=== PATIENT | female | born 1940 | race Caucasian/White ===

== ENCOUNTER 2016-11-09 07:17 | Inpatient (IN) ==
--- NOTE | 2016-11-09 07:56 | EKG Report ---
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
[2016-11-09] MEDS ORDERED: ASPIRIN 325 MG TABLET PO STA (08:06)
[2016-11-09] MEDS ORDERED: HYDROmorphone 2 MG/1 ML VIAL IV STA (08:06)
[2016-11-09] MEDS ORDERED: ONDANSETRON 4 MG/2 ML VIAL IV STA (08:06)
--- NOTE | 2016-11-09 08:12 | Emergency Department Note ---
Arrival - Arrival Chief Complaint: Chest Pain Stated Complaint: cp ED Nursing Triage Note: Pt c/o Chest pain with SOB and nausea x 2 days. Mode of Arrival: Stretcher Limitations: No Limitations Source: Patient Time Seen by Provider: 11/09/16 07:56 - History of Present Illness HPI Narrative: The patient complaints of substernal and left parasternal chest pain off and on since "a few nights ago." It became worse last night. She has also had some pain in the left upper arm. She is unable to characterize either of these. She denies any nausea, vomiting or diaphoresis. She has had some shortness of breath. 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 Apparently a neighbor became concerned and called an ambulance for her. She does have a history of KS in the past but states that her current symptoms do not feel the same. She had a stent approximately 10 years ago. Allergies/Adverse Reactions: Allergies Allergy/AdvReac Type Severity Reaction Status Date / Time morphine AdvReac SHORTNESS Verified 07/23/16 15:54 OF BREATH Home Medications: Home Medications Medication Instructions Recorded Confirmed Type Amlodipine Besylate [Amlodipine 2.5 mg PO DAILY 05/30/15 05/30/15 History Besylate] Atorvastatin [Lipitor] 10 mg PO BEDTIME 05/30/15 05/30/15 History Bumetanide Tab [Bumex Tab] 1 mg PO DAILY 05/30/15 05/30/15 History Carbidopa/Levodopa 25-100 [Sinemet 1 tablet PO TID 05/30/15 05/30/15 History 25-100] Clopidogrel Bisulfate [Clopidogrel] 75 mg PO DAILY 05/30/15 05/30/15 History Estrogens(Conj) Tab [Premarin Tab] 0.45 mg PO DAILY 05/30/15 05/30/15 History Losartan Potassium [Losartan 100 mg PO DAILY 05/30/15 05/30/15 History Potassium] Magnesium Oxide [Magnesium Oxide] 400 mg PO BID 05/30/15 05/30/15 History Meclizine [Antivert] 25 mg PO TID 05/30/15 05/30/15 History Memantine [Namenda] 10 mg PO BID 05/30/15 05/30/15 History Omeprazole [Prilosec] 20 mg PO DAILY 05/30/15 05/30/15 History Potassium Chloride Packet 20 meq PO DAILY 05/30/15 05/30/15 History Solifenacin [Vesicare] 5 mg PO DAILY 05/30/15 05/30/15 History Thioridazine [Mellaril] 25 mg PO DAILY 05/30/15 05/30/15 History Tizanidine HCl [Zanaflex] 2 mg PO Q6H #40 capsule 05/30/15 Rx predniSONE TAB [PredniSONE] 20 mg PO DAILY #15 tablet 05/30/15 Rx Review of System - Review of System 12 point system: reviewed and no additional remarkable complaints except as stated - Review of System Constitutional: Absent: diaphoresis, fever, weakness Head/Ears/Nose/Throat: Absent: nasal drainage, sore throat Respiratory: Present: other (Dyspnea). Absent: cough, respiratory distress, wheezing Cardiovascular: Present: chest pain. Absent: palpitations, dyspnea on exertion , orthopnea, edema, syncope Gastrointestinal: Absent: abdominal pain, nausea, vomiting Musculoskeletal: Present: arm pain. Absent: back pain, neck pain Neurological: Absent: headache Medical,Surgical,& Family Hx - Medical History Cardio: History of: Hypertension, [place] Neurology: History of: Dementia Endocrine: History of: Dyslipidemia - Surgical History Cardiac Surgeries: Sugical HX of: Cardiac Catheterization (STENTS X 2) - Family History Family History: noncontributory - Social History Smoking Status: Never smoker Exam Physical Examination: GENERAL: Alert. No acute distress. HEENT: Normocephalic and atraumatic. There is no nasal drainage. No pharyngeal erythema or exudate. NECK: Normal inspection. Supple. No lymphadenopathy or meningismus. LUNGS: No respiratory distress. Clear to auscultation bilaterally, no wheezes, rales or rhonchi. HEART: Regular rate and rhythm. ABDOMEN: Soft, nontender and nondistended with normoactive bowel sounds. BACK: Normal inspection. SKIN: Color normal. Warm and dry. EXTREMITIES: Nontender. Normal range of motion. No pedal edema. NEUROLOGICAL/PSYCHIATRIC: Alert and oriented -3 with normal mood and affect. Cranial nerves normal. No motor or sensory deficit. Vital Signs: Vital Signs Temperature 98.1 F 06/30/17 07:39 Pulse Rate 92 H 11/09/16 07:39 Respiratory Rate 16 11/09/16 07:55 Blood Pressure 162/93 11/09/16 07:39 O2 Sat by Pulse Oximetry 98 11/09/16 07:25 Course - Reevaluation(s) Reevaluation #1: The patient is now pain-free and sleeping comfortably in the ER. Vitals remained stable. Her troponin was 1.8. I have discussed patient with Dr. mckay and will admit to telemetry. He will see the patient as soon as she arrives on the floor. Time: 09:46 Results - Labs CBC & BMP: 11/09/16 08:30 11/09/16 08:30 Lab Results: I have reviewed the patients labs Labs: Laboratory Tests 11/09/16 11/09/16 11/09/16 08:30 08:30 08:30 INR 1.0 Total Bilirubin < 0.39 AST 20 ALT 13 Alkaline Phosphatase 47 CK-MB (CK-2) 11.9 H CK and CKMB Interp 8.8 Troponin I 1.800 H B-Natriuretic Peptide 235 H - Impressions EKG shows a normal sinus rhythm at 78 with inferior Q waves. This is unchanged from previous. Chest x-ray shows no acute cardiopulmonary abnormality. Disposition Clinical Impression: Chest pain, Myocardial infarction, Chronic renal insufficiency, Leukocytosis Case discussed with: patient, patient's family Disposition: Still a Patient Condition: Stable Time of Disposition: 09:48
[2016-11-09] MEDS ORDERED: HYDROmorphone 2 MG/1 ML VIAL ONE ×2 (08:18→13:20)
[2016-11-09] MEDS ORDERED: ONDANSETRON 4 MG/2 ML VIAL ONE (08:18)
[2016-11-09] MEDS ORDERED: ASPIRIN 325 MG TABLET ONE (08:18)
--- NOTE | 2016-11-09 08:20 | XRay Report ---
Portable chest Date: 11/09/2016 Clinical history: Chest pain, dyspnea Comparison: 05/30/2015 Technique: Portable AP sitting chest Findings: The heart is normal in size with uncoiling of the aorta and cardiac fat pads. Calcification in the aortic knob. Minimal chronic scarring in the lungs with stable mediastinum and osseous structures. Impression: No acute cardiopulmonary pathology identified. PROCEDURE INTERPRETED AT [facility] DEPARTMENT OF RADIOLOGY Final Report Signed by: Dr. Yoli Burch
[2016-11-09 08:41] LABS: Basophils # 0.1 10*3/uL (0.0-0.2); Basophils % 0.3 % (0.0-0.8); Eosinophils # 0.1 10*3/uL (0.0-0.87); Eosinophils % 0.5 % (0.00-10.9); Hematocrit 34.1 VOL% (35.7-47.0); Immature Granulocytes % 0.3 %; Immature Granulocytes Absolute 0.05 #; Lymphocytes # 1.3 10*3/uL (1.4-4.0); Lymphocytes % 7.4 % (21.3-54.2); Mean Corpuscular HGB Conc 35.2 GM/DL (32-36); Mean Corpuscular Hemoglobin 34 PG (27-34); Mean Corpuscular Volume 95.8 FL (87-102); Mean Platelet Volume 10.1 FL (9.6-12.0); Monocytes % 5.6 % (1.7-12.7); Neutrophils # 14.5 10*3/uL (1.4-7.4); Neutrophils % 85.9 % (38.7-73.9); Platelet Count 160 T/CUMM (130-400); Red Blood Count 3.56 MC/CUMM (3.8-5.5); White Blood Count 16.8 T/CUMM (4-12)
[2016-11-09 08:52] LABS: PT Patient Result 10.2 SECS; Partial Thromboplastin Time 25.2 SECS (0-40)
[2016-11-09 09:20] LABS: Alanine Aminotransferase 13 U/L (13-56); Albumin 3.2 G/DL (3.4-5.0); Alkaline Phosphatase 47 U/L (45-117); Aspartate Amino Transferase 20 U/L (0-37); Bilirubin,Total < 0.39 MG/DL (0.2-1.0); Blood Urea Nitrogen 28 MG/DL (7-18); CKMB % 8.8 %; Glucose 91 MG/DL (74-106); Magnesium 1.9 MG/DL (1.8-2.4); Potassium 4.1 MMOL/L (3.5-5.1); Sodium 136 MMOL/L (136-145); Total Protein 6.8 G/DL (6.4-8.3)
[2016-11-09] MEDS ORDERED: MAGNESIUM SULF RIDER 2 GM in PREMIX 1 EACH IV PRN (10:48)
[2016-11-09] MEDS ORDERED: MAGNESIUM SULF RIDER 4 GM in PREMIX 1 EACH IV PRN (10:48)
[2016-11-09] MEDS ORDERED: diphenhydrAMINE CAP 25 MG CAPSULE PO ONE (12:04)
[2016-11-09] MEDS ORDERED: DIAZEPAM 5 MG TABLET PO ONE (12:07)
--- NOTE | 2016-11-09 12:12 | Cardiology History & Physical ---
<Urmila Edwards - Last Filed: 11/09/16 11:48> Assessment and Plan - Time spent with patient Time spent with patient: Greater than 30 minutes (1) Chest pain Status: Acute Assessment and plan: SEE PLAN OF CARE LISTED BELOW. Current Visit: Yes (2) Chronic renal insufficiency Status: Chronic Assessment and plan: SEE PLAN OF CARE LISTED BELOW. Current Visit: Yes (3) Hypertension Status: Chronic Assessment and plan: SEE PLAN OF CARE LISTED BELOW. Current Visit: Yes (4) Dyslipidemia Status: Chronic Assessment and plan: SEE PLAN OF CARE LISTED BELOW. Current Visit: Yes (5) GERD (gastroesophageal reflux disease) Status: Chronic Assessment and plan: SEE PLAN OF CARE LISTED BELOW. Current Visit: Yes (6) Coronary artery disease Status: Chronic Assessment and plan: SEE PLAN OF CARE LISTED BELOW. Current Visit: Yes (7) History of NC (myocardial infarction) Status: Chronic Assessment and plan: SEE PLAN OF CARE LISTED BELOW. Current Visit: Yes History of Present Illness Chief complaint: Chest pain History of present illness: Respiratory Therapist: Dr. Wilcox PCP: Dr. Yann Groves Ms. Howell is a 76 year old female with known history of coronary artery disease, routinely followed by Dr. Wilcox. Patient has cardiac risk factors significant for hypertension, hyperlipidemia, known history of coronary artery disease and sedentary lifestyle. Patient is a lifetime non-smoker. Patient has a past medical history of GERD, aortic sclerosis, chronic anxiety, hard of hearing and history of breast cancer (now in remission). Patient is status post inferior myocardial infarction with stent placement to proximal RCA October. Her most recent heart catheterization was performed July 2007. At that time her RCA stent was widely patent. LAD was mildly stenosed at 40%. She had a cardiac stress test December 2011 which was normal. She was last seen in the cardiology clinic May 2016. Patient presented to [facility] with complaints of chest pain that began "a couple of nights ago." Patient is unable to characterize her pain. It is located midsternally as well as to her left chest and radiates from her left arm. This is been coming and going for the last couple of days. She has noticed that it is sometimes worse during sleeping hours. However, she also reports that it is worsened with exertion. Associated with shortness of breath. She denies diaphoresis, nausea and heart racing/palpitations. She has not tried taking nitroglycerin at home. Her chest pain continued to progress and she felt that she needed to be further evaluated in the emergency department. Her neighbor then called EMS. Upon arrival to the emergency department, she was given nitroglycerin. She reports that this did make her chest pain better. Patient has since been admitted under cardiology's service and housed the telemetry unit. Of note, patient's granddaughter is at bedside and she reports that patient has a long-standing history of atypical type chest pain as she has arthritis in her chest. She frequently has "chest pain with rain." Earlier this week, she reported having chest pain that was relieved with heating pad and Tylenol. Patient reports that she did not try taking Tylenol this morning. Patient was seen and examined on the telemetry unit with Dr. mckay. Patient continues to complain of moderate chest discomfort. Troponin is noted to be 1.8. EKG does not reveal any diagnostic changes. BNP only mildly elevated at 235. Creatinine 1.7. Patient has a known history of coronary artery disease with stent placement to proximal RCA October 15, 2006. Patient's last heart catheterization was July 2007. Because of this, patient will need to undergo cardiac stress testing in order to definitively rule out worsening of underlying coronary artery disease. Risk and benefits of procedure has been reviewed with patient and family. They are all agreeable to proceed later today. Patient will be kept n.p.o. and will plan for heart catheterization today per Dr. Wilcox. ASSESSMENT/PLAN: 1. CHEST PAIN - Troponin is noted to be 1.8. Patient also has a known history of coronary artery disease with stent placement to proximal RCA October 15, 2006. Patient's last heart catheterization was July 2007. Because of this, patient will need to undergo cardiac stress testing in order to definitively rule out worsening of underlying coronary artery disease. Risk and benefits of procedure has been reviewed with patient and family. They are all agreeable to proceed later today. Patient will be kept n.p.o. and will plan for heart catheterization today per Dr. Wilcox. 2. CORONARY ARTERY DISEASE - Patient has known coronary artery disease with history of inferior myocardial infarction with stent to proximal RCA. 3. DYSLIPIDEMIA - Lipid lowering agent will be continued. Will order lipid panel. 4. HYPERTENSION - Under well control. Continue current plan of care. 5. GERD - I will assure patient has PPI on board. 6. RENAL INSUFFICIENCY - We will monitor BMP daily. Creatinine today 1.7. Fluids have been initiated. Home Medications Medication Instructions Recorded Confirmed Type Amlodipine Besylate [Amlodipine 2.5 mg PO QAM 05/30/15 11/09/16 History Besylate] Atorvastatin [Lipitor] 10 mg PO BEDTIME 05/30/15 11/09/16 History Carbidopa/Levodopa 25-100 [Sinemet 1 tablet PO TID 05/30/15 11/09/16 History 25-100] Clopidogrel Bisulfate [Clopidogrel] 75 mg PO QAM 05/30/15 11/09/16 History Estrogens(Conj) Tab [Premarin Tab] 0.45 mg PO QAM 05/30/15 11/09/16 History Losartan Potassium [Losartan 100 mg PO QAM 05/30/15 11/09/16 History Potassium] Magnesium Oxide [Magnesium Oxide] 400 mg PO BEDTIME 05/30/15 11/09/16 History Meclizine [Antivert] 25 mg PO TID PRN 05/30/15 11/09/16 History Memantine [Namenda] 10 mg PO BID 05/30/15 11/09/16 History Omeprazole [Prilosec] 20 mg PO QAM 05/30/15 11/09/16 History Potassium Chloride Packet 20 meq PO DAILY 05/30/15 11/09/16 History Solifenacin [Vesicare] 5 mg PO QAM 05/30/15 11/09/16 History Thioridazine [Mellaril] 25 mg PO QAM 05/30/15 11/09/16 History Aspirin EC Tab 81 mg PO QAM 11/09/16 11/09/16 History Furosemide [Furosemide] 40 mg PO QAM 11/09/16 11/09/16 History Isosorbide Mononitrate [Isosorbide 15 mg PO QAM 11/09/16 11/09/16 History Mononitrate ER] Allergies Allergy/AdvReac Type Severity Reaction Status Date / Time morphine AdvReac SHORTNESS Verified 07/23/16 15:54 OF BREATH - Constitutional Constitutional: Absent: chills, fatigue, fever(s), frequent falls, malaise, weakness, weight gain, weight loss - Cardiovascular Cardiovascular: Present: chest pain at rest, chest pain with activity, dyspnea, dyspnea on exertion, radiating jaw, neck or arm pain. Absent: claudication, diaphoresis, edema, lightheadedness, orthopnea, palpitations, PND - Respiratory Respiratory: Present: dyspnea, dyspnea on exertion. Absent: cough, hemoptysis, wheezing, snoring, pain on inspiration, change in phlegm color - Gastrointestinal Gastrointestinal: Present: heartburn. Absent: abdominal pain, change in bowel habits, coffee ground emesis, diarrhea, hematemesis, hematochezia, loose stools , melena, nausea, vomiting - Neurological Neurological: Absent: abnormal gait, abnormal speech, behavioral changes, dizziness, frequent falls, syncope Medical,Surgical,& Family Hx - Medical History Cardio: History of: CAD, Hypertension, [place] Neurology: History of: Dementia Endocrine: History of: Dyslipidemia Genitourinary: History of: Bladder Problem (leaky bladder) Musculoskeletal: History of: Back/Neck Problems (back pain) Reproductive: History of: Breast Cancer (double mastectomy) - Surgical History Cardiac Surgeries: Sugical HX of: Cardiac Catheterization (STENTS X 2) Reproductive Surgeries: Surgical HX of;: Breast Surgery - Family History Family History: Reports;: Family Cancer (sister), Family Hypertension (mother father), Family Stroke (father) - Social History Smoking Status: Never smoker Frequency of Alcohol Use: None Type of Drug Use: None Marital Status: Single Lives With:: Alone Functional capacity: independent ambulation Cardiology Physical Exam - Constitutional Vitals: Vital Signs Temp Pulse Resp BP Pulse Ox 97.9 F 99 H 18 125/75 100 11/09/16 10:49 11/09/16 10:49 11/09/16 10:49 11/09/16 10:49 11/09/16 10:49 Intake and Output 11/08/16 11/09/16 11/09/16 22:59 06:59 14:59 Other: Weight 130 lb Patient Weight 11/10/16 06:59 Weight 130 lb Exam: General: Appears well with no apparent distress. Pleasant and cooperative. Appears comfortable. HEENT: PERRL, normocephalic, atraumatic. Mucous membranes moist. No jaundice noted. Conjunctiva moist and clear, sclerae anicteric Neck: No JVD/HJR, no thyromegaly or lymphadenopathy noted. Cardiac: Regular rate and rhythm. Lungs: Clear to auscultation without accessory muscle use to assist the respiratory pattern. Abdomen: Soft, bowel sounds normoactive. Nontender and nondistended. No abdominal bruit or thrill noted. No masses noted. Extremities: No clubbing, cyanosis noted. No edema noted. Upper extremity pulses 2+. Lower extremity pulses 2+. Capillary refill less than 3 seconds. Skin: No unusual lesions or rashes. No skin breakdown appreciated. Neuro: Awake, alert and oriented 3. Moves all extremities well without hemiparesis or paralysis. No essential tremor is appreciated. Result/EKG - Labs CBC & BMP: 11/09/16 08:30 11/09/16 08:30 Lab Results: I have reviewed the past 24 hour labs Labs: Laboratory Results - last 24 hr 11/09/16 11/09/16 11/09/16 08:30 08:30 08:30 WBC RBC Hgb Hct MCV MCH MCHC RDW Plt Count MPV Neut % (Auto) Lymph % (Auto) Osborne % (Auto) Eos % (Auto) Baso % (Auto) Neut # (Auto) Lymph # (Auto) Osborne # (Auto) Eos # (Auto) Baso # (Auto) Immature Gran % Nucleated RBC % Immature Gran # Nucleated RBCs # INR 1.0 PT Patient/Control Mix 10.2 Circ Anticoag PTT 25.2 Sodium 136 Potassium 4.1 Chloride 102 Carbon Dioxide 24 Anion Gap 14.1 BUN 28 H Creatinine 1.70 H GFR Calculation 25 BUN/Creatinine Ratio 16.00 Glucose 91 Calculated Osmolality 277.0 Calcium 9.0 Magnesium 1.9 Total Bilirubin < 0.39 AST 20 ALT 13 Alkaline Phosphatase 47 Total Creatine Kinase 135 CK-MB (CK-2) 11.9 H CK and CKMB Interp 8.8 Troponin I 1.800 H B-Natriuretic Peptide 235 H Total Protein 6.8 Albumin 3.2 L Globulin 3.6 H Albumin/Globulin Ratio 0.8 L 11/09/16 08:30 WBC 16.8 H RBC 3.56 L Hgb 12.0 Hct 34.1 L MCV 95.8 MCH 34 MCHC 35.2 RDW 13.0 Plt Count 160 MPV 10.1 Neut % (Auto) 85.9 H Lymph % (Auto) 7.4 L Osborne % (Auto) 5.6 Eos % (Auto) 0.5 Baso % (Auto) 0.3 Neut # (Auto) 14.5 H Lymph # (Auto) 1.3 L Osborne # (Auto) 1.0 H Eos # (Auto) 0.1 Baso # (Auto) 0.1 Immature Gran % 0.3 Nucleated RBC % 0.0 Immature Gran # 0.05 Nucleated RBCs # 0.00 INR PT Patient/Control Mix Circ Anticoag PTT Sodium Potassium Chloride Carbon Dioxide Anion Gap BUN Creatinine GFR Calculation BUN/Creatinine Ratio Glucose Calculated Osmolality Calcium Magnesium Total Bilirubin AST ALT Alkaline Phosphatase Total Creatine Kinase CK-MB (CK-2) CK and CKMB Interp Troponin I B-Natriuretic Peptide Total Protein Albumin Globulin Albumin/Globulin Ratio - EKG EKG results: interpreted by me, sinus rhythm <Wilton Wilcox - Last Filed: 11/09/16 12:37> History of Present Illness History of present illness: Cardiology addendum Status post RCA stent in 2004 with inferior infarction. Recurrent chest pain. Troponin level is 1.80 EKG shows inferior T-wave changes. Suspect disease progression. Plan Begin normal saline hydration Cardiac cath possible stent Discussed with daughter Betsey and granddaughter Sydney. All in agreement to proceed as outlined. Cardiology Physical Exam - Constitutional Vitals: Vital Signs Temp Pulse Resp BP Pulse Ox 97.9 F 99 H 18 125/75 100 11/09/16 10:49 11/09/16 10:49 11/09/16 10:49 11/09/16 10:49 11/09/16 10:49 Intake and Output 11/08/16 11/09/16 11/09/16 23:59 07:59 15:59 Other: Weight 58.967 kg Patient Weight 11/09/16 23:59 Weight 58.967 kg Result/EKG - Labs CBC & BMP: 11/09/16 08:30 11/09/16 08:30 Labs: Laboratory Results - last 24 hr 11/09/16 11/09/16 11/09/16 08:30 08:30 08:30 WBC RBC Hgb Hct MCV MCH MCHC RDW Plt Count MPV Neut % (Auto) Lymph % (Auto) Osborne % (Auto) Eos % (Auto) Baso % (Auto) Neut # (Auto) Lymph # (Auto) Osborne # (Auto) Eos # (Auto) Baso # (Auto) Immature Gran % Nucleated RBC % Immature Gran # Nucleated RBCs # INR 1.0 PT Patient/Control Mix 10.2 Circ Anticoag PTT 25.2 Sodium 136 Potassium 4.1 Chloride 102 Carbon Dioxide 24 Anion Gap 14.1 BUN 28 H Creatinine 1.70 H GFR Calculation 25 BUN/Creatinine Ratio 16.00 Glucose 91 Calculated Osmolality 277.0 Calcium 9.0 Magnesium 1.9 Total Bilirubin < 0.39 AST 20 ALT 13 Alkaline Phosphatase 47 Total Creatine Kinase 135 CK-MB (CK-2) 11.9 H CK and CKMB Interp 8.8 Troponin I 1.800 H B-Natriuretic Peptide 235 H Total Protein 6.8 Albumin 3.2 L Globulin 3.6 H Albumin/Globulin Ratio 0.8 L 11/09/ 08:30 WBC 16.8 H RBC 3.56 L Hgb 12.0 Hct 34.1 L MCV 95.8 MCH 34 MCHC 35.2 RDW 13.0 Plt Count 160 MPV 10.1 Neut % (Auto) 85.9 H Lymph % (Auto) 7.4 L Osborne % (Auto) 5.6 Eos % (Auto) 0.5 Baso % (Auto) 0.3 Neut # (Auto) 14.5 H Lymph # (Auto) 1.3 L Osborne # (Auto) 1.0 H Eos # (Auto) 0.1 Baso # (Auto) 0.1 Immature Gran % 0.3 Nucleated RBC % 0.0 Immature Gran # 0.05 Nucleated RBCs # 0.00 INR PT Patient/Control Mix Circ Anticoag PTT Sodium Potassium Chloride Carbon Dioxide Anion Gap BUN Creatinine GFR Calculation BUN/Creatinine Ratio Glucose Calculated Osmolality Calcium Magnesium Total Bilirubin AST ALT Alkaline Phosphatase Total Creatine Kinase CK-MB (CK-2) CK and CKMB Interp Troponin I B-Natriuretic Peptide Total Protein Albumin Globulin Albumin/Globulin Ratio
[2016-11-09] MEDS ORDERED: SODIUM CHLORIDE 0.9% 1,000 ML IV SCH (12:30)
[2016-11-09] MEDS ORDERED: HEPARIN/NACL 0.9% 2 UNITS/ML 1,000 ML IV ONE (13:01)
[2016-11-09] MEDS ORDERED: LIDOCAINE 1% 20 ML VIAL ONE (13:01)
[2016-11-09 13:06] LABS: CKMB % 6.5 %
[2016-11-09 13:07] LABS: Troponin I Only 1.21 NG/ML (0.00-0.045)
[2016-11-09] MEDS ORDERED: MIDAZOLAM 2 MG/2 ML VIAL ONE (13:20)
--- NOTE | 2016-11-09 13:37 | History and Physical Update ---
Sedation H&P Update - History and Physical H&P was reviewed, the patient examined and there: are no changes in the patients condition since last H&P was completed. - Dictation Physical: refer to scanned H&P, refer to H&P completed by admitting physician - Physical Exam Mental Status: alert and oriented Heart: regular rate and rhythm Lung: clear to auscultation Abdomen: within normal limits Vitals: within normal limits - Sedation Patient Consent: Procedure disscussed with patient and patinet has consented., Risks and benefits were discussed with patient,including infection,, bleeding, injury to surrounding structures, seizure, temporary nerve, Patient understands and accepts potential risks/benefits and agrees to, proceed. ASA Class: II Airway Assessment: Class II: Soft palate, uvula, fauces visible
[2016-11-09] MEDS ORDERED: BIVALIRUDIN 250 MG VIAL IV ONE (13:55)
[2016-11-09] MEDS ORDERED: BIVALIRUDIN 250 MG in SODIUM CHLORIDE 0.9% 50 ML IV SCH (13:58)
[2016-11-09] MEDS ORDERED: CLOPIDOGREL 300 MG TABLET ONE ×2 (14:13→14:44)
--- NOTE | 2016-11-09 14:38 | Cardiac Catheterization ---
Date of Procedure:: 11/09/16 Pre-op Diagnosis: Non-Q-wave NC chest pain Post-op diagnosis: same Procedure: Cardiac catheterization procedure note #1 left heart catheterization #2 selective coronary angiography #3 left ventriculography #4 successful proximal RCA stent Jeni was used for the procedure Description of procedure The patient had a non-Q-wave NC with chest pain and elevated troponin I 0.8 was brought to the [facility]. Following sterile preparation draping of the right groin local anesthesia was achieved by infiltration with 1% Xylocaine. Using a Cook needle the right femoral artery was cannulated and a #6 sheath was inserted. A 6 Libyan pigtail catheter was introduced and advanced retrograde across the aortic valve into the left ventricle and the end-diastolic pressure was recorded. Left ventricular cavity was performed the CLARKE projection using 20 cc of contrast. A pullback recordings made across phytic valve. The catheter was changed for a 6 Libyan left Amplatz catheter and left coronary angiography was performed in several CLARKE and NICARAGUAN projections. The catheter was exchanged for a 6 [place]yan right Amplatz catheter and right coronary angiography was performed in the NICARAGUAN projection only. The catheter change for a 6 Libyan right Amador guiding catheter and the right coronary was recannulated. A cnmt film was obtained. The patient was both Angiomax and placed on infusion per protocol. A pro-water flex wire was used and advanced to the distal right coronary. Direct stenting was performed using a 3.0 x 18 mm Alpine Zions drug-eluting stent. Several flush injections confirmed good positioning of the stent. The maximum patient pressure was 16 sendy for 30 seconds, creating a 3.24 mm lumen. The balloon was brought back to the guiding catheter going to guidewire across the lesion repeat angiography widely patent vessel with mild residual narrowing, no dissection and brisk runoff. The guidewire was removed. Repeat angiography and confirmed a widely patent vessel with mild residual narrowing, no dissection and brisk runoff. The guiding catheter and sheath were removed and the femoral arch Warren site was sealed percutaneously minx closure device with prompt cessation of bleeding and prompt return of normal for pulses. No comp occasions ensued. The patient was transported back to telemetry in stable condition. Hemodynamic data Left ventricle 163/10 Aortic pressure 163/78 mean 114 Selective coronary angiography The left main trunk is widely patent bifurcates. The LAD is a moderate-sized vessel with just reaches the apex. There is a 40% stenosis after the first septal diagonal branch. Diagonal branch is small and has mild disease only. Circumflex system is small and has mild disease only. The dominant coronary artery has a 95% in-stent restenosis in the proximal segment of the vessel. No left right collaterals. Left ventriculography Localized inferobasal hypokinesis. Ejection fraction 60%. No evidence for mitral regurgitation. Conclusions #1 LVEDP 10 #2 ejection fraction 60% with inferobasal hypokinesis #3 no mitral regurgitation #4 no aortic valve gradient #5 left main trunk-patent #6 LAD-40% proximal after first septal and diagonal #7 diagonal-small, mild disease #8 circumflex system-small, mild irregularities only #9 dominant right coronary-95% in-stent restenosis in the proximal vessel. #10 successful proximal RCA stent 3.0 by 18 mm Alpine Zions drug-coated stent, postdilated 16 sendy for 30 seconds, creating a 3.24 mm lumen. Excellent angiographic result obtained. Disposition The patient status post proximal RCA stent October 2006. She presents with a non-Q -wave NC and had a 95% in-stent restenosis. The vessel was restented with a 3.0 x 18 mm Alpine drug-coated stent, postdilated to 16 sendy, creating a 3.24 mm lumen. Excellent angiographic result obtained. She will remain on normal saline hydration and continue aspirin Plavix and statin therapy. A CPK troponin and BNP were checked in the morning. Cine pictures reviewed with the patient's daughter Betsey and granddaughter Sydney. Implants: Successful proximal RCA stent 3.0 x 18 mm Alpine Zions drug-eluting stent. Maximum patient pressure 16 sendy 30 seconds, creating a 3.04 mm lumen. Good result obtained. Anesthesia: moderate conscious sedation Surgeon / Physician: Wilton Wilcox Estimated blood loss: minimal Specimens: none sent Condition: stable Disposition: floor - Medications / Follow-up
[2016-11-09] MEDS ORDERED: NITROGLYCERIN SL 0.4 MG TABLET SL PRN (14:39)
[2016-11-09] MEDS ORDERED: ONDANSETRON 4 MG/2 ML VIAL IV PRN (14:39)
[2016-11-09] MEDS ORDERED: ZALEPLON 5 MG CAPSULE PO PRN (14:39)
[2016-11-09] MEDS ORDERED: ACETAMINOPHEN 325 MG TABLET PO PRN (14:39)
[2016-11-09] MEDS ORDERED: MECLIZINE 25 MG TABLET PO PRN (14:42)
--- NOTE | 2016-11-09 15:05 | EKG Report ---
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
[2016-11-09] MEDS: CARBIDOPA/LEVODOPA 25-100 MG TABLET PO SCH ×2 (17:43→22:48)
[2016-11-09] MEDS ORDERED: amLODIPine 2.5 MG TABLET PO ONE (17:46)
[2016-11-09] MEDS ORDERED: CLOPIDOGREL 75 MG TABLET PO ONE (17:46)
[2016-11-09 19:21] LABS: CKMB % 6.7 %
[2016-11-09 19:26] LABS: Troponin I Only 1.61 NG/ML (0.00-0.045)
[2016-11-09] MEDS ORDERED: CLOPIDOGREL 300 MG TABLET PO ONE (19:39)
[2016-11-09] MEDS ORDERED: ISOSORBIDE MONONITRATE 30 MG TABLET PO ONE (19:40)
[2016-11-09] MEDS ORDERED: LOSARTAN 50 MG TABLET PO ONE (20:10)
[2016-11-09] MEDS: ATORVASTATIN 10 MG TABLET PO SCH (22:48)
[2016-11-09] MEDS: MAGNESIUM OXIDE 400 MG TABLET PO SCH (22:48)
[2016-11-09] MEDS: MEMANTINE 10 MG TABLET PO SCH (22:48)
[2016-11-10 01:50] LABS: Basophils % 0.3 % (0.0-0.8); Eosinophils # 0.1 10*3/uL (0.0-0.87); Eosinophils % 0.3 % (0.00-10.9); Hematocrit 30.8 VOL% (35.7-47.0); Hemoglobin 10.6 GM/DL (12.0-16.0); Immature Granulocytes % 0.6 %; Lymphocytes # 1.7 10*3/uL (1.4-4.0); Lymphocytes % 10.7 % (21.3-54.2); Mean Corpuscular HGB Conc 34.4 GM/DL (32-36); Mean Corpuscular Hemoglobin 34 PG (27-34); Mean Corpuscular Volume 97.8 FL (87-102); Mean Platelet Volume 10.3 FL (9.6-12.0); Monocytes # 0.9 10*3/uL (0.11-0.8); Monocytes % 5.8 % (1.7-12.7); Neutrophils # 13.1 10*3/uL (1.4-7.4); Neutrophils % 82.3 % (38.7-73.9); Platelet Count 139 T/CUMM (130-400); Red Blood Count 3.15 MC/CUMM (3.8-5.5); Red Cell Distribution Width 13.7 % (9.3-17.3); White Blood Count 15.9 T/CUMM (4-12)
[2016-11-10 02:05] LABS: Calcium 7.9 MG/DL (8.5-10.1); Magnesium 1.7 MG/DL (1.8-2.4); Osmolality,Calculated 276.7 MOS/KG (273-304); Potassium 4.1 MMOL/L (3.5-5.1)
[2016-11-10 02:11] LABS: CKMB % 3.8 %
[2016-11-10 02:32] LABS: Troponin I Only 1.92 NG/ML (0.00-0.045)
--- NOTE | 2016-11-10 08:31 | Cardiology Progress Note ---
Cardiology - PN: Subj Interval history: Cardiology note Status post inferior [place] with proximal RCA stent. EF 60% with inferobasal hypokinesis. Temperature spike to 101.2 last night 2 blood cultures and UA have been sent. Alert and comfortable today. Regular rhythm with soft systolic murmur. Decreased breath sounds but clear. Abdomen soft. Right groin looks good. No bruit or hematoma. Lab data today White count 15.9 hemoglobin 10.6 hematocrit 30.8 Sodium 138 potassium 4.1 chloride 107 CO2 22 BUN 17 creatinine down to 1.30 CPK peaked to 45 troponin I 0.92 Impression Status post small inferior TX with proximal RCA stent Hypertension Depression Temperature 101.2 Status post proximal RCA stent October 2006 Plan Routine groin precautions discussed 2 blood cultures and UA pending Follow CPK flux Discussed with daughter Betsey Exam (Progress Note) - Constitutional Vitals: Period Temp Pulse Resp BP Sys/Marie Pulse Ox Last 24 Hr 97.9 F-101.2 F 87-115 16-18 98-160/58-76 92-100 Result/EKG - Labs CBC & BMP: 11/10/16 01:24 11/10/16 01:24 Labs: Laboratory Results - last 24 hr 11/09/16 11/09/16 11/09/16 08:30 08:30 08:30 WBC RBC Hgb Hct MCV MCH MCHC RDW Plt Count MPV Neut % (Auto) Lymph % (Auto) [place] % (Auto) Eos % (Auto) Baso % (Auto) Neut # (Auto) Lymph # (Auto) [place] # (Auto) Eos # (Auto) Baso # (Auto) Immature Gran % Nucleated RBC % Immature Gran # Nucleated RBCs # INR 1.0 PT Patient/Control Mix 10.2 Circ Anticoag PTT 25.2 Sodium 136 Potassium 4.1 Chloride 102 Carbon Dioxide 24 Anion Gap 14.1 BUN 28 H Creatinine 1.70 H GFR Calculation 25 BUN/Creatinine Ratio 16.00 Glucose 91 Calculated Osmolality 277.0 Calcium 9.0 Magnesium 1.9 Total Bilirubin < 0.39 AST 20 ALT 13 Alkaline Phosphatase 47 Total Creatine Kinase 135 CK-MB (CK-2) 11.9 H CK and CKMB Interp 8.8 Troponin I 1.800 H B-Natriuretic Peptide 235 H Total Protein 6.8 Albumin 3.2 L Globulin 3.6 H Albumin/Globulin Ratio 0.8 L 11/09/16 11/09/16 11/09/16 08:30 12:35 17:45 WBC 16.8 H RBC 3.56 L Hgb 12.0 Hct 34.1 L MCV 95.8 MCH 34 MCHC 35.2 RDW 13.0 Plt Count 160 MPV 10.1 Neut % (Auto) 85.9 H Lymph % (Auto) 7.4 L [place] % (Auto) 5.6 Eos % (Auto) 0.5 Baso % (Auto) 0.3 Neut # (Auto) 14.5 H Lymph # (Auto) 1.3 L [place] # (Auto) 1.0 H Eos # (Auto) 0.1 Baso # (Auto) 0.1 Immature Gran % 0.3 Nucleated RBC % 0.0 Immature Gran # 0.05 Nucleated RBCs # 0.00 INR PT Patient/Control Mix Circ Anticoag PTT Sodium Potassium Chloride Carbon Dioxide Anion Gap BUN Creatinine GFR Calculation BUN/Creatinine Ratio Glucose Calculated Osmolality Calcium Magnesium Total Bilirubin AST ALT Alkaline Phosphatase Total Creatine Kinase 147 123 CK-MB (CK-2) 9.6 H 8.2 H CK and CKMB Interp 6.5 6.7 Troponin I 1.210 H D 1.610 H D B-Natriuretic Peptide Total Protein Albumin Globulin Albumin/Globulin Ratio 11/10/16 11/10/16 11/10/16 01:24 01:24 01:24 WBC 15.9 H RBC 3.15 L Hgb 10.6 L Hct 30.8 L MCV 97.8 MCH 34 MCHC 34.4 RDW 13.7 Plt Count 139 MPV 10.3 Neut % (Auto) 82.3 H Lymph % (Auto) 10.7 L [place] % (Auto) 5.8 Eos % (Auto) 0.3 Baso % (Auto) 0.3 Neut # (Auto) 13.1 H Lymph # (Auto) 1.7 [place] # (Auto) 0.9 H Eos # (Auto) 0.1 Baso # (Auto) 0.0 Immature Gran % 0.6 Nucleated RBC % 0.0 Immature Gran # 0.10 Nucleated RBCs # 0.00 INR PT Patient/Control Mix Circ Anticoag PTT Sodium 138 Potassium 4.1 Chloride 107 Carbon Dioxide 22 Anion Gap 13.1 BUN 17 D Creatinine 1.30 H GFR Calculation 34 BUN/Creatinine Ratio 13.00 Glucose 99 Calculated Osmolality 276.7 Calcium 7.9 L Magnesium 1.7 L Total Bilirubin AST ALT Alkaline Phosphatase Total Creatine Kinase 245 H D CK-MB (CK-2) 9.3 H CK and CKMB Interp 3.8 Troponin I 1.920 H B-Natriuretic Peptide Total Protein Albumin Globulin Albumin/Globulin Ratio Quality Measures - VTE Contraindication to Mechanical VTE Prophylaxis: Trauma to Legs
[2016-11-10] MEDS: CARBIDOPA/LEVODOPA 25-100 MG TABLET PO SCH ×3 (08:49→21:11)
[2016-11-10] MEDS: MEMANTINE 10 MG TABLET PO SCH ×2 (08:49→21:12)
[2016-11-10] MEDS: LOSARTAN 50 MG TABLET PO SCH (08:50)
[2016-11-10] MEDS: SOLIFENACIN 5 MG TABLET PO SCH (08:51)
[2016-11-10] MEDS: THIORIDAZINE 25 MG TABLET PO SCH (08:51)
[2016-11-10] MEDS: CLOPIDOGREL 75 MG TABLET PO SCH (08:52)
[2016-11-10] MEDS: FUROSEMIDE 40 MG TABLET PO SCH (08:53)
[2016-11-10] MEDS: PANTOPRAZOLE 40 MG TABLET PO SCH (08:53)
[2016-11-10] MEDS: POTASSIUM CHLORIDE 20 MEQ PACK PO SCH (08:54)
[2016-11-10] MEDS: ASPIRIN EC 81 MG TABLET PO SCH (08:55)
[2016-11-10] MEDS: ISOSORBIDE MONONITRATE 30 MG TABLET PO SCH (08:55)
[2016-11-10] MEDS ORDERED: amLODIPine 2.5 MG TABLET PO SCH (09:00)
[2016-11-10 09:33] LABS: CKMB % 3.6 %
[2016-11-10 09:35] LABS: Troponin I Only 1.5 NG/ML (0.00-0.045)
[2016-11-10] MEDS: ESTROGENS (CONJ) 0.45 MG TABLET PO SCH (09:35)
--- NOTE | 2016-11-10 09:54 | EKG Report ---
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
[2016-11-10 10:16] LABS: Apearance,Urine CLOUDY (Clear); Bacteria,Urine Occasional /HPF (Few); Bilirubin,Urine Negative (Negative); Blood, Urine Negative (Negative); Glucose,Urine (UA) Negative (Negative); Ketones,Urine Negative (Negative); Nitrite,Urine Negative (Negative); Protein,Urine Negative; RBC,Urine 2 /HPF (0-4); Squamous Epithelial Cell,Urine Many /HPF (0-10); Urine Color Yellow (Yellow); Urine Specific Gravity 1.014 (1.001-1.035); Urine Urobilinogen < 2.0 EU/DL (0.2-1.0); WBC,Urine 2 /HPF (0-6)
[2016-11-10] MEDS ORDERED: ISOSORBIDE MONONITRATE 30 MG TABLET PO ONE (17:47)
[2016-11-10] MEDS ORDERED: LOSARTAN 50 MG TABLET PO ONE (17:47)
[2016-11-10] MEDS: ATORVASTATIN 10 MG TABLET PO SCH (21:11)
[2016-11-10] MEDS: MAGNESIUM OXIDE 400 MG TABLET PO SCH (21:11)
[2016-11-11 03:57] LABS: Basophils % 0.2 % (0.0-0.8); Eosinophils # 0.2 10*3/uL (0.0-0.87); Eosinophils % 1.9 % (0.00-10.9); Hematocrit 30.1 VOL% (35.7-47.0); Hemoglobin 10.4 GM/DL (12.0-16.0); Immature Granulocytes % 0.3 %; Immature Granulocytes Absolute 0.03 #; Lymphocytes # 1.9 10*3/uL (1.4-4.0); Lymphocytes % 16.8 % (21.3-54.2); Mean Corpuscular HGB Conc 34.6 GM/DL (32-36); Mean Corpuscular Hemoglobin 33 PG (27-34); Mean Corpuscular Volume 96.5 FL (87-102); Mean Platelet Volume 10.4 FL (9.6-12.0); Monocytes # 1.1 10*3/uL (0.11-0.8); Monocytes % 9.6 % (1.7-12.7); Neutrophils # 7.9 10*3/uL (1.4-7.4); Neutrophils % 71.2 % (38.7-73.9); Platelet Count 129 T/CUMM (130-400); Red Blood Count 3.12 MC/CUMM (3.8-5.5); Red Cell Distribution Width 13.6 % (9.3-17.3); White Blood Count 11.1 T/CUMM (4-12)
[2016-11-11 04:33] LABS: Calcium 9.1 MG/DL (8.5-10.1); Magnesium 2.2 MG/DL (1.8-2.4); Osmolality,Calculated 275.8 MOS/KG (273-304); Potassium 4.8 MMOL/L (3.5-5.1)
[2016-11-11 06:54] LABS: Band Neutrophils 2 % (0-10); Eosinophils 4 % (0-10); Hypochromasia 1+; Lymphocytes 15 % (20-55); Platelet Estimate Normal; Segmented Neutrophils 73 % (50-85); Total Cells Counted 100
--- NOTE | 2016-11-11 09:25 | Cardiology Progress Note ---
Cardiology - PN: Subj Interval history: Cardiology note 76 year old woman status post inferior [place] with proximal RCA stent No temperature. No chest pain or shortness of breath. Appetite fair. Regular rhythm with soft systolic murmur as before. Decreased breath sounds but clear. Abdomen soft benign. Right groin soft and dry. No bruit or hematoma. Distal pulses 2+ symmetric. Lab data today Blood cultures negative UA negative. White count 11.1 with no shift Hemoglobin 10.4 hematocrit 30.1 Sodium 137 potassium 4.8 chloride 104 CO2 24 BUN 17 creatinine 1.30 Glucose 116 magnesium 2.2 Impression Day 2 status post inferior [place] with proximal RCA stent Hypertension Depression GE reflux Status post proximal RCA stent October 2006 Temperature 101.2 11/09/2016. No evidence for infection. Patient has defervesced. Plan Ambulate and monitor Consult social service for swing bed transfer tomorrow Aspirin 81 mg daily and Plavix 81 mg daily Add metoprolol 50 mg daily Continue Lipitor 10 mg Discussed with her daughter Betsey Exam (Progress Note) - Constitutional Vitals: Period Temp Pulse Resp BP Sys/Marie Pulse Ox Last 24 Hr 96.7 F-98.2 F 86-95 15-18 114-143/58-89 94-100 Result/EKG - Labs CBC & BMP: 11/11/16 03:41 11/11/16 03:41 Labs: Laboratory Results - last 24 hr 11/10/16 11/10/16 11/10/16 08:44 10:08 14:56 WBC RBC Hgb Hct MCV MCH MCHC RDW Plt Count MPV Neut % (Auto) Lymph % (Auto) [place] % (Auto) Eos % (Auto) Baso % (Auto) Neut # (Auto) Lymph # (Auto) [place] # (Auto) Eos # (Auto) Baso # (Auto) Total Counted Immature Gran % Nucleated RBC % Immature Gran # Segmented Neutrophils Band Neutrophils Lymphocytes Monocytes Eosinophils Nucleated RBCs # Platelet Estimate Hypochromasia Sodium Potassium Chloride Carbon Dioxide Anion Gap BUN Creatinine GFR Calculation BUN/Creatinine Ratio Glucose Calculated Osmolality Calcium Magnesium Total Creatine Kinase 210 H 166 D CK-MB (CK-2) 7.6 H 4.7 H CK and CKMB Interp 3.6 Troponin I 1.500 H D 1.200 H Urine Color Yellow Urine Appearance Cloudy Urine pH 6.0 Ur Specific [place] 1.014 Urine Protein Negative Urine Glucose (UA) Negative Urine Ketones Negative Urine Blood Negative Urine Nitrate Negative Urine Bilirubin Negative Urine Urobilinogen < 2.0 H Urine Leukocytes Negative Urine RBC 2 Urine WBC 2 Ur Squamous Epith Cells Many Urine Bacteria Occasional Ur Culture Indicated? Not indicated 11/11/16 11/11/16 03:41 03:41 WBC 11.1 D RBC 3.12 L Hgb 10.4 L Hct 30.1 L MCV 96.5 MCH 33 MCHC 34.6 RDW 13.6 Plt Count 129 L MPV 10.4 Neut % (Auto) 71.2 Lymph % (Auto) 16.8 L [place] % (Auto) 9.6 Eos % (Auto) 1.9 Baso % (Auto) 0.2 Neut # (Auto) 7.9 H Lymph # (Auto) 1.9 [place] # (Auto) 1.1 H Eos # (Auto) 0.2 Baso # (Auto) 0.0 Total Counted 100 Immature Gran % 0.3 Nucleated RBC % 0.0 Immature Gran # 0.03 Segmented Neutrophils 73 Band Neutrophils 2 Lymphocytes 15 L Monocytes 6 Eosinophils 4 Nucleated RBCs # 0.00 Platelet Estimate Normal Hypochromasia 1+ Sodium 137 Potassium 4.8 Chloride 104 Carbon Dioxide 24 Anion Gap 13.8 BUN 17 Creatinine 1.30 H GFR Calculation 34 BUN/Creatinine Ratio 13.00 Glucose 116 H Calculated Osmolality 275.8 Calcium 9.1 Magnesium 2.2 Total Creatine Kinase CK-MB (CK-2) CK and CKMB Interp Troponin I Urine Color Urine Appearance Urine pH Ur Specific [place] Urine Protein Urine Glucose (UA) Urine Ketones Urine Blood Urine Nitrate Urine Bilirubin Urine Urobilinogen Urine Leukocytes Urine RBC Urine WBC Ur Squamous Epith Cells Urine Bacteria Ur Culture Indicated? Quality Measures - VTE Contraindication to Mechanical VTE Prophylaxis: Trauma to Legs
[2016-11-11] MEDS: ISOSORBIDE MONONITRATE 30 MG TABLET PO SCH (09:35)
[2016-11-11] MEDS: THIORIDAZINE 25 MG TABLET PO SCH (09:36)
[2016-11-11] MEDS: SOLIFENACIN 5 MG TABLET PO SCH (09:36)
[2016-11-11] MEDS: CARBIDOPA/LEVODOPA 25-100 MG TABLET PO SCH ×3 (09:36→20:54)
[2016-11-11] MEDS: CLOPIDOGREL 75 MG TABLET PO SCH (09:37)
[2016-11-11] MEDS: PANTOPRAZOLE 40 MG TABLET PO SCH (09:37)
[2016-11-11] MEDS: LOSARTAN 50 MG TABLET PO SCH (09:37)
[2016-11-11] MEDS: METOPROLOL TARTRATE 50 MG TABLET PO SCH (09:38)
[2016-11-11] MEDS: MEMANTINE 10 MG TABLET PO SCH ×2 (09:38→20:54)
[2016-11-11] MEDS: FUROSEMIDE 40 MG TABLET PO SCH (09:38)
[2016-11-11] MEDS: ASPIRIN EC 81 MG TABLET PO SCH (09:39)
[2016-11-11] MEDS: POTASSIUM CHLORIDE 20 MEQ PACK PO SCH (09:39)
[2016-11-11] MEDS: ESTROGENS (CONJ) 0.45 MG TABLET PO SCH (09:40)
[2016-11-11] MEDS: MAGNESIUM OXIDE 400 MG TABLET PO SCH (20:54)
[2016-11-11] MEDS: ATORVASTATIN 10 MG TABLET PO SCH (20:54)
[2016-11-12 05:02] LABS: Basophils % 0.3 % (0.0-0.8); Eosinophils # 0.2 10*3/uL (0.0-0.87); Eosinophils % 2.3 % (0.00-10.9); Hemoglobin 9.9 GM/DL (12.0-16.0); Immature Granulocytes % 0.4 %; Immature Granulocytes Absolute 0.04 #; Lymphocytes # 2.6 10*3/uL (1.4-4.0); Lymphocytes % 24.9 % (21.3-54.2); Mean Corpuscular HGB Conc 34.1 GM/DL (32-36); Mean Corpuscular Hemoglobin 33 PG (27-34); Mean Corpuscular Volume 96.7 FL (87-102); Mean Platelet Volume 11.2 FL (9.6-12.0); Monocytes # 1.2 10*3/uL (0.11-0.8); Neutrophils # 6.2 10*3/uL (1.4-7.4); Neutrophils % 60.1 % (38.7-73.9); Platelet Count 140 T/CUMM (130-400); Red Cell Distribution Width 13.2 % (9.3-17.3); White Blood Count 10.2 T/CUMM (4-12)
[2016-11-12 05:28] LABS: Calcium 8.9 MG/DL (8.5-10.1); Potassium 4.4 MMOL/L (3.5-5.1)
[2016-11-12] MEDS: CLOPIDOGREL 75 MG TABLET PO SCH (08:40)
[2016-11-12] MEDS: PANTOPRAZOLE 40 MG TABLET PO SCH (08:40)
[2016-11-12] MEDS: CARBIDOPA/LEVODOPA 25-100 MG TABLET PO SCH ×3 (08:40→21:33)
[2016-11-12] MEDS: ASPIRIN EC 81 MG TABLET PO SCH (08:40)
[2016-11-12] MEDS: LOSARTAN 50 MG TABLET PO SCH (08:41)
[2016-11-12] MEDS: MEMANTINE 10 MG TABLET PO SCH ×2 (08:41→21:33)
[2016-11-12] MEDS: SOLIFENACIN 5 MG TABLET PO SCH (08:41)
[2016-11-12] MEDS: THIORIDAZINE 25 MG TABLET PO SCH (08:41)
[2016-11-12] MEDS: FUROSEMIDE 40 MG TABLET PO SCH (08:41)
[2016-11-12] MEDS: METOPROLOL TARTRATE 50 MG TABLET PO SCH (08:41)
[2016-11-12] MEDS: POTASSIUM CHLORIDE 20 MEQ PACK PO SCH (08:42)
[2016-11-12] MEDS: ISOSORBIDE MONONITRATE 30 MG TABLET PO SCH (08:42)
[2016-11-12] MEDS: ESTROGENS (CONJ) 0.45 MG TABLET PO SCH (08:43)
--- NOTE | 2016-11-12 10:23 | Physician Query Form ---
CLICK EDIT DOCUMENT TO SELECT QUERY ANSWER --> OK --> SIGN Nita Goldstein RN [employer] W) [phone] (f) [phone] [email or web address] PROVIDERS: Make your selection(s) from the choices in EACH section by typing an "x" and enter comments in the comment section. Please use your independent medical judgment in providing your response. This request does not imply that any particular answer is desired or expected. CLINICAL INDICATORS: (Providers should not edit this section) Based on documentation of "chronic renal insufficiency", creatinine of 1.70 on admission with a GFR of 25 and decreased to 1.30. Pt. treated with IV fluids of Normal Saline. Clarify which of the following most accurately represents the patient's renal status: ( ) Acute kidney injury (non-traumatic) ( ) Acute renal failure ( ) Acute renal failure with underlying Chronic Kidney Disease (CKD) - please provide stage below (x) CKD - please provide stage below ( ) Other, please specify: ( ) Clinically unable to determine Chronic Kidney Disease Stages Source: National Kidney Disease Foundation ( ) Stage I (eGFR > or = 90) ( ) Stage II (eGFR 60 - 89) ( ) Stage III (eGFR 30 - 59) (x) Stage IV (eGFR 15 - 29) ( ) Stage V (eGFR < 15 or dialysis) COMMENTS: PLEASE ALSO DOCUMENT RESPONSE IN PROGRESS NOTES AND/OR DISCHARGE SUMMARY Use of terms such as suspected, likely, or probable (associated with a specific diagnosis that is being evaluated, monitored, or treated as if it exists) are acceptable and can be restated in the discharge summary if not ruled out. MTDD
--- NOTE | 2016-11-12 14:25 | Cardiology Progress Note ---
Assessment and Plan (1) Non-STEMI (non-ST elevated myocardial infarction) Status: Resolved Assessment and plan: See plan of care listed below. Current Visit: Yes (2) Chronic renal insufficiency Status: Chronic Assessment and plan: SEE PLAN OF CARE LISTED BELOW. Current Visit: Yes (3) Hypertension Status: Chronic Assessment and plan: SEE PLAN OF CARE LISTED BELOW. Current Visit: Yes (4) Dyslipidemia Status: Chronic Assessment and plan: SEE PLAN OF CARE LISTED BELOW. Current Visit: Yes (5) GERD (gastroesophageal reflux disease) Status: Chronic Assessment and plan: SEE PLAN OF CARE LISTED BELOW. Current Visit: Yes (6) Coronary artery disease Status: Chronic Assessment and plan: SEE PLAN OF CARE LISTED BELOW. Current Visit: Yes (7) History of KS (myocardial infarction) Status: Chronic Assessment and plan: SEE PLAN OF CARE LISTED BELOW. Current Visit: Yes (8) Debility Status: Chronic Assessment and plan: See plan of care listed below. Current Visit: Yes Cardiology - PN: Subj Interval history: [employer] Supervisor: Dr. Wilcox PCP: Dr. Yann Groves SUMMARY - Ms. Howell is a 76 year old female with known history of coronary artery disease, routinely followed by Dr. Wilcox. Patient has cardiac risk factors significant for hypertension, hyperlipidemia, known history of coronary artery disease and sedentary lifestyle. Patient is a lifetime non-smoker. Patient has a past medical history of GERD, aortic sclerosis, chronic anxiety, hard of hearing and history of breast cancer (now in remission). Patient is status post inferior myocardial infarction with stent placement to proximal RCA October 15, 2006. Patient presented to [facility] with non- ST elevation KS. Subsequently, she underwent heart catheterization per Dr. Wilcox November 09, 2016 with the following impressions noted: IMPRESSIONS: 1. LVEDP 10 2. ejection fraction 60% with inferobasal hypokinesis 3. no mitral regurgitation 4. no aortic valve gradient 5. left main trunk-patent 6. LAD-40% proximal after first septal and diagonal 7. diagonal-small, mild disease 8. circumflex system-small, mild irregularities only 9. dominant right coronary-95% in-stent restenosis in the proximal vessel. 10. successful proximal RCA stent 3.0 by 18 mm Alpine Zions drug-coated stent, postdilated 16 sendy for 30 seconds, creating a 3.24 mm lumen. Excellent angiographic result obtained. NOVEMBER 12, 2016 UPDATE - Patient was seen and examined on the telemetry unit. She has done well post heart catheterization is without complaints this morning. She denies chest pain, heaviness and tightness as well as shortness of breath. Right groin is soft without bleeding, hematoma and bruit. Vital signs are stable. Labs have been reviewed. Distal pulses are present. At this point, patient is stable for discharge home. We are awaiting swing bed placement. ecclesiastical worker anticipates that she will be accepted tomorrow. Will discuss with Dr. Garcia and await his additional recommendations. ASSESSMENT/PLAN: 1. STATUS POST NON-ST EVELATIN KS - Patient is status post non-ST elevation KS and underwent heart catheterization with PCI to RCA. Ejection fraction noted to be 60%. She has done well postoperatively. Continue dual antiplatelet therapy, lipid- lowering agent, beta-iris and ARB. Awaiting swing bed placement. Anticipating discharge to swing bed tomorrow. 2. CORONARY ARTERY DISEASE, STATUS POST PCI TO RCA - As above. Continue dual antiplatelet therapy, lipid lowering agent, beta-iris and ARB. 3. DYSLIPIDEMIA - Continue lipid lowering agent. Lipid panel has been ordered. 4. HYPERTENSION - Under well control. Continue current plan of care. 5. GERD - Continue PPI. 6. RENAL INSUFFICIENCY - We will monitor BMP daily. Creatinine has improved since admission, today 1.4 7. DEBILITY - Cccupational and physical therapy are on board. Patient will be discharged to swing bed unit, hopefully tomorrow. Exam (Progress Note) - Constitutional Vitals: Period Temp Pulse Resp BP Sys/Marie Pulse Ox Last 24 Hr 96.1 F-97.8 F 61-71 16-18 89-147/50-74 92-98 Exam: General: Appears well with no apparent distress. Pleasant and cooperative. Appears comfortable. HEENT: PERRL, normocephalic, atraumatic. Mucous membranes moist. No jaundice noted. Conjunctiva moist and clear, sclerae anicteric Neck: No JVD/HJR, no thyromegaly or lymphadenopathy noted. No carotid bruit appreciated Cardiac: Regular rate and rhythm. No murmur rub or gallop. Lungs: Clear to auscultation without accessory muscle use to assist the respiratory pattern. Abdomen: Soft, bowel sounds normoactive. Nontender and nondistended. No abdominal bruit or thrill noted. No masses noted. Extremities: No clubbing, cyanosis noted. No edema noted. Upper extremity pulses 2+. Lower extremity pulses 2+. Capillary refill less than 3 seconds. Right groin soft without bleeding, hematoma and bruit. Distal pulses present. Skin: No unusual lesions or rashes. No skin breakdown appreciated. Neuro: Awake, alert and oriented 3. Moves all extremities well without hemiparesis or paralysis. No essential tremor is appreciated. Result/EKG - Labs CBC & BMP: 11/12/16 03:59 11/12/16 03:59 Lab Results: I have reviewed the past 24 hour labs Labs: Laboratory Results - last 24 hr 11/12/16 11/12/16 03:59 03:59 WBC 10.2 RBC 3.00 L Hgb 9.9 L Hct 29.0 L MCV 96.7 MCH 33 MCHC 34.1 RDW 13.2 Plt Count 140 MPV 11.2 Neut % (Auto) 60.1 Lymph % (Auto) 24.9 [place] % (Auto) 12.0 Eos % (Auto) 2.3 Baso % (Auto) 0.3 Neut # (Auto) 6.2 Lymph # (Auto) 2.6 [place] # (Auto) 1.2 H Eos # (Auto) 0.2 Baso # (Auto) 0.0 Immature Gran % 0.4 Nucleated RBC % 0.0 Immature Gran # 0.04 Nucleated RBCs # 0.00 Sodium 136 Potassium 4.4 Chloride 99 Carbon Dioxide 27 Anion Gap 14.4 BUN 27 H Creatinine 1.40 H GFR Calculation 56 BUN/Creatinine Ratio 19.00 Glucose 97 Calculated Osmolality 276.0 Calcium 8.9 Magnesium 2.0 Quality Measures - VTE Contraindication to Mechanical VTE Prophylaxis: Trauma to Legs Specialty Discharge - Follow Up or Referrals
--- NOTE | 2016-11-12 15:48 | Discharge Summary ---
Hospital Course - Hospital Course Hospital Course: Net Application Support Specialist: Dr. Wilcox PCP: Dr. Yann Groves SUMMARY - Ms. Howell is a 76 year old female with known history of coronary artery disease, routinely followed by Dr. Wilcox. Patient has cardiac risk factors significant for hypertension, hyperlipidemia, known history of coronary artery disease and sedentary lifestyle. Patient is a lifetime non-smoker. Patient has a past medical history of GERD, aortic sclerosis, chronic anxiety, hard of hearing and history of breast cancer (now in remission). Patient is status post inferior myocardial infarction with stent placement to proximal RCA October 15, 2006. Patient presented to [facility] with non- ST elevation MT. Subsequently, she underwent heart catheterization per Dr. Wilcox November 09, 2016 with the following impressions noted: IMPRESSIONS: 1. LVEDP 10 2. ejection fraction 60% with inferobasal hypokinesis 3. no mitral regurgitation 4. no aortic valve gradient 5. left main trunk-patent 6. LAD-40% proximal after first septal and diagonal 7. diagonal-small, mild disease 8. circumflex system-small, mild irregularities only 9. dominant right coronary-95% in-stent restenosis in the proximal vessel. 10. successful proximal RCA stent 3.0 by 18 mm Alpine Zions drug-coated stent, postdilated 16 sendy for 30 seconds, creating a 3.24 mm lumen. Excellent angiographic result obtained. Post heart catheterization patient was transferred back to the telemetry unit in stable condition. She has done reasonably well post catheterization. Right groin cath site is soft without bleeding, hematoma and bruit. Distal pulses present. Groin precautions have been reviewed with the patient. She has verbalized understanding. Patient is without chest pain, heaviness and tightness post intervention. Troponin continues to trend down as expected. Patient does have history of chronic renal insufficiency. Creatinine upon admission 1.7. Today it has improved to 1.4 after being gently hydrated post catheterization. Patient has been instructed on the importance of compliance with dual antiplatelet therapy. She will be discharged home on Plavix and aspirin. Due to debility, physical and Occupational Therapy has been consulted over the weekend. After collaborating with patient and her family family, it was decided that patient would best benefit from swing bed placement. She has been accepted to [facility] swing bed facility. Having felt that she has not maximal medical therapy, she will be discharged to swing bed in stable condition. Patient has been given a follow-up appoint with Dr. Wilcox in 1 week with CBC, BMP, magnesium and EKG. Discharge instructions and discharge medications have been reviewed with the patient. She verbalizes understanding. - Time spent with patient Time with patient DS: Greater than 30 minutes Diagnosis - Discharge Diagnosis (1) Non-STEMI (non-ST elevated myocardial infarction) Status: Resolved (2) Chronic renal insufficiency Status: Chronic (3) Hypertension Status: Chronic (4) Dyslipidemia Status: Chronic (5) GERD (gastroesophageal reflux disease) Status: Chronic (6) Coronary artery disease Status: Chronic (7) History of MT (myocardial infarction) Status: Chronic (8) Debility Status: Chronic (9) Status post insertion of drug-eluting stent into right coronary artery for coronary artery disease Status: Acute Specialty Discharge - Follow Up or Referrals Follow up with: Wilton Wilcox MD [Physician] - 1 Week (Patient will need a follow-up appointment with Dr. Wilcox in 1 week with CBC, BMP, magnesium and EKG.) Discharge Plan - Discharge Data Disposition: Disch To Home/Self Care Condition at Discharge: Stable Discharge Diet: heart healthy Activity: no lifting (No heavy lifting or squatting 1 week), other (Post cath expectations) Hygiene: may shower, other (Post cath expectations) Weight Bearing at Discharge: other (Post cath expectations) Driving: not until seen by doctor Contact your physician if you experience:: fever over 101, Difficulty voiding, Redness or swelling, Nausea/Vomiting, Shortness of breath, Bleeding, pain uncontrolled by pain medications - Discharge Medications No Action Solifenacin [Vesicare] 5 mg PO QAM Potassium Chloride Packet 20 meq PO DAILY Thioridazine [Mellaril] 25 mg PO QAM Omeprazole [Prilosec] 20 mg PO QAM Estrogens(Conj) Tab [Premarin Tab] 0.45 mg PO QAM Carbidopa/Levodopa 25-100 [Sinemet 25-100] 1 tablet PO TID Memantine [Namenda] 10 mg PO BID Meclizine [Antivert] 25 mg PO TID PRN PRN Reason: Dizziness Atorvastatin [Lipitor] 10 mg PO BEDTIME Magnesium Oxide [Magnesium Oxide] 400 mg PO BEDTIME Losartan Potassium [Losartan Potassium] 100 mg PO QAM Clopidogrel Bisulfate [Clopidogrel] 75 mg PO QAM Amlodipine Besylate [Amlodipine Besylate] 2.5 mg PO QAM Furosemide [Furosemide] 40 mg PO QAM Aspirin EC Tab 81 mg PO QAM Isosorbide Mononitrate [Isosorbide Mononitrate ER] 15 mg PO QAM - Follow Up or Referral Follow Up: Wilton Wilcox MD [Physician] - 1 Week (Patient will need a follow-up appointment with Dr. Wilcox in 1 week with CBC, BMP, magnesium and EKG.) - Forms/Instructions Instructions: Myocardial Infarction (GEN), Left Heart Catheterization (DC), Heart Healthy Diet (GEN), Coronary Intravascular Stent Placement (DC) Exam - Constitutional Vitals: Period Temp Pulse Resp BP Sys/Marie Pulse Ox Last 24 Hr 96.1 F-98 F 61-71 16-18 89-147/50-74 92-98 Exam: General: Appears well with no apparent distress. Pleasant and cooperative. Appears comfortable. HEENT: PERRL, normocephalic, atraumatic. Mucous membranes moist. No jaundice noted. Conjunctiva moist and clear, sclerae anicteric Neck: No JVD/HJR, no thyromegaly or lymphadenopathy noted. No carotid bruit appreciated Cardiac: Regular rate and rhythm. No murmur rub or gallop. Lungs: Clear to auscultation without accessory muscle use to assist the respiratory pattern. Abdomen: Soft, bowel sounds normoactive. Nontender and nondistended. No abdominal bruit or thrill noted. No masses noted. Extremities: No clubbing, cyanosis noted. No edema noted. Upper extremity pulses 2+. Lower extremity pulses 2+. Capillary refill less than 3 seconds. Right groin soft without bleeding, hematoma and bruit. Distal pulses present. Skin: No unusual lesions or rashes. No skin breakdown appreciated. Neuro: Awake, alert and oriented 3. Moves all extremities well without hemiparesis or paralysis. No essential tremor is appreciated. Discharge Results Procedures and tests throughout hospitalization: Pending Orders 11/09/16 19:56 Blood Culture Routine 11/13/16 04:00 BMP w/ Mg [Basic Metabolic Panel w/Mg] IN AM CBC [Comp Blood Count Auto Diff] IN AM Lipid Panel IN AM 11/14/16 04:00 BMP w/ Mg [Basic Metabolic Panel w/Mg] IN AM CBC [Comp Blood Count Auto Diff] IN AM 11/15/16 04:00 BMP w/ Mg [Basic Metabolic Panel w/Mg] IN AM CBC [Comp Blood Count Auto Diff] IN AM 11/16/16 04:00 BMP w/ Mg [Basic Metabolic Panel w/Mg] IN AM CBC [Comp Blood Count Auto Diff] IN AM Labs on day of discharge: Labs from last 24 hours 11/12/16 11/12/16 03:59 03:59 WBC 10.2 RBC 3.00 L Hgb 9.9 L Hct 29.0 L MCV 96.7 MCH 33 MCHC 34.1 RDW 13.2 Plt Count 140 MPV 11.2 Neut % (Auto) 60.1 Lymph % (Auto) 24.9 [place] % (Auto) 12.0 Eos % (Auto) 2.3 Baso % (Auto) 0.3 Neut # (Auto) 6.2 Lymph # (Auto) 2.6 [place]field # (Auto) 1.2 H Eos # (Auto) 0.2 Baso # (Auto) 0.0 Immature Gran % 0.4 Nucleated RBC % 0.0 Immature Gran # 0.04 Nucleated RBCs # 0.00 Sodium 136 Potassium 4.4 Chloride 99 Carbon Dioxide 27 Anion Gap 14.4 BUN 27 H Creatinine 1.40 H GFR Calculation 56 BUN/Creatinine Ratio 19.00 Glucose 97 Calculated Osmolality 276.0 Calcium 8.9 Magnesium 2.0 Preliminary micro results at discharge 11/09/16 19:56 Blood Culture - Preliminary Blood No growth at 1 day 11/09/16 19:56 Blood Culture - Preliminary Blood No growth at 1 day - Imaging and Cardiology Cardiology Procedure: report reviewed by Procedure: Chest x-ray: report reviewed by sc DS: Provider Date of admission: 11/09/16 09:48 Primary care physician: . No PCP Attending physician on admission: Wilton Wilcox MD Consults: 11/09/16 14:39 Consult to Cardiac Rehabilitation [CONS] Routine Reason for Cardiac Rehabilitation: Risk Factor Modification 11/10/16 09:27 Consult to Case Mgmt/Social Srvs [CONS] Routine Reason for Case Mgmt/Social Srvs: Home Health Consult Comment: with PT OT 11/10/16 09:32 Consult to Occupational Therapy [CONS] Routine Reason for Occupational Therapy: Evaluate and Treat Consult to Physical Therapy [CONS] Routine Reason for Physical Therapy: Evaluate and Treat 11/11/16 10:48 Consult to Case Mgmt/Social Srvs [CONS] Routine Reason for Case Mgmt/Social Srvs: Swingbed/SNF/Half-Way Consult Comment: for sb possibly in am Discharging clinician: Urmila Edwards NP Expected date of discharge: 11/13/16
[2016-11-12] MEDS ORDERED: ATORVASTATIN 40 MG TABLET PO SCH (21:00)
[2016-11-12] MEDS: MAGNESIUM OXIDE 400 MG TABLET PO SCH (21:33)
[2016-11-13 05:04] LABS: Basophils % 0.3 % (0.0-0.8); Eosinophils # 0.3 10*3/uL (0.0-0.87); Hematocrit 29.3 VOL% (35.7-47.0); Hemoglobin 10.2 GM/DL (12.0-16.0); Immature Granulocytes % 0.7 %; Immature Granulocytes Absolute 0.06 #; Lymphocytes # 2.8 10*3/uL (1.4-4.0); Lymphocytes % 31.5 % (21.3-54.2); Mean Corpuscular HGB Conc 34.8 GM/DL (32-36); Mean Corpuscular Hemoglobin 33 PG (27-34); Mean Corpuscular Volume 95.4 FL (87-102); Mean Platelet Volume 10.3 FL (9.6-12.0); Monocytes # 1.2 10*3/uL (0.11-0.8); Monocytes % 13.3 % (1.7-12.7); Neutrophils # 4.6 10*3/uL (1.4-7.4); Neutrophils % 51.2 % (38.7-73.9); Platelet Count 169 T/CUMM (130-400); Red Blood Count 3.07 MC/CUMM (3.8-5.5); Red Cell Distribution Width 13.1 % (9.3-17.3); White Blood Count 8.9 T/CUMM (4-12)
[2016-11-13 05:39] LABS: Calcium 8.9 MG/DL (8.5-10.1); Magnesium 2.1 MG/DL (1.8-2.4); Osmolality,Calculated 279.8 MOS/KG (273-304); Potassium 4.5 MMOL/L (3.5-5.1)
[2016-11-13 06:11] LABS: Risk Ratio 1.62; VLDL CHOLESTEROL 18.8 MG/DL
[2016-11-13] MEDS: FUROSEMIDE 40 MG TABLET PO SCH (08:11)
[2016-11-13] MEDS: ISOSORBIDE MONONITRATE 30 MG TABLET PO SCH (08:11)
[2016-11-13] MEDS: ASPIRIN EC 81 MG TABLET PO SCH (08:11)
[2016-11-13] MEDS: MEMANTINE 10 MG TABLET PO SCH (08:11)
[2016-11-13] MEDS: CARBIDOPA/LEVODOPA 25-100 MG TABLET PO SCH (08:11)
[2016-11-13] MEDS: PANTOPRAZOLE 40 MG TABLET PO SCH (08:11)
[2016-11-13] MEDS: LOSARTAN 50 MG TABLET PO SCH (08:12)
[2016-11-13] MEDS: CLOPIDOGREL 75 MG TABLET PO SCH (08:12)
[2016-11-13] MEDS: POTASSIUM CHLORIDE 20 MEQ PACK PO SCH (08:12)
[2016-11-13] MEDS: ESTROGENS (CONJ) 0.45 MG TABLET PO SCH (08:12)
[2016-11-13] MEDS: SOLIFENACIN 5 MG TABLET PO SCH (08:12)
[2016-11-13] MEDS ORDERED: METOPROLOL SUCCINATE XL 100 MG TABLET PO SCH (09:00)
[2016-11-13] MEDS ORDERED: CARVEDILOL 3.125 MG TABLET PO SCH (10:00)
[2016-11-13] MEDS: THIORIDAZINE 25 MG TABLET PO SCH (10:20)
[2016-11-13 11:59] VITALS: BP 148/77
[2016-11-14] MEDS ORDERED: CONJUGATED ESTROGENS 0.45 MG PO SCH (09:00)
== END 2016-11-13 12:54 | disposition swing bed (61) | DRG 247 ==
LOC: N.ED 07:17 → N.EDINP 09:38 → N.TELES 11:28
PROVIDERS: ADMIT Internal Medicine Cardiovascular Disease; ATTEND Internal Medicine Cardiovascular Disease
PROC: CLCCHCL (ICD-10-PCS; 2016-11-09 14:15)

== ENCOUNTER 2016-11-30 12:31 | Inpatient (IN) ==
--- NOTE | 2016-11-30 12:23 | Family Practice History&Phys ---
Assessment and Plan (1) Weakness of right side of body Status: Acute Assessment and plan: Admit to the telemetry bed today, 1. New onset weakness of the right side , will get a noncontrast CT head, will do a neurology consult. 2. Dyspnea on exertion, will get chest x-ray ,put on oxygen,rule out cardiac vs pulmonology pathology. 3. CAD, s/p PR with recent RCA stent, We will get EKG, start few of home medications, lasix , losartan decrease the dosages, coreg , imdur contine, will get cardiology consult. 4. neurochecks, Q4 hrs,fall precautions, 5. Dyslipidemia, continue atorvastatin (2) Dyspnea on exertion Status: Acute (3) Coronary artery disease Status: Chronic (4) Debility Status: Chronic (5) Dyslipidemia Status: Chronic (6) GERD (gastroesophageal reflux disease) Status: Chronic (7) History of PR (myocardial infarction) Status: Chronic (8) Hypertension Status: Chronic History of Present Illness Chief complaint: weakness of right side, History of present illness: Ms. Howell is a 76 year old female pt came for walkin appt at clinic, PCP , accompanied by her daughter, works at [employer], got discharged from [facility] , yesterday, was in rehab , for postop cardio, 11/13/16 till 11/29/16, was active 3 weeks ago, had inferior PR , s/p stent X1,this past hospital admission, daughter mentions she noticed ,pt has since yesterday , overall getting worse, leaning while siting to rt more,weak voice, dizziness + , leaning to right more than usual, unable to walk on her own, has incontinence ( had UTI in rehab ), diarrheax 1 this AM, no fever, nausea , chest pain , Mentioned SOB on exertion, no orthopnea or PND Home Medications Medication Instructions Recorded Confirmed Type Atorvastatin [Lipitor] 10 mg PO BEDTIME 05/30/15 11/13/16 History Carbidopa/Levodopa 25-100 [Sinemet 1 tablet PO TID 05/30/15 11/13/16 History 25-100] Clopidogrel Bisulfate [Clopidogrel] 75 mg PO QAM 05/30/15 11/13/16 History Estrogens(Conj) Tab [Premarin Tab] 0.45 mg PO QAM 05/30/15 11/13/16 History Losartan Potassium 100 mg PO QAM 05/30/15 11/13/16 History Magnesium Oxide 400 mg PO BEDTIME 05/30/15 11/13/16 History Meclizine [Antivert] 25 mg PO TID PRN 05/30/15 11/13/16 History Memantine [Namenda] 10 mg PO BID 05/30/15 11/13/16 History Omeprazole [Prilosec] 20 mg PO QAM 05/30/15 11/13/16 History Potassium Chloride Packet 20 meq PO DAILY 05/30/15 11/13/16 History Solifenacin [Vesicare] 5 mg PO QAM 05/30/15 11/13/16 History Thioridazine [Mellaril] 25 mg PO QAM 05/30/15 11/13/16 History Aspirin EC Tab 81 mg PO QAM 11/09/16 11/13/16 History Furosemide 40 mg PO QAM 11/09/16 11/13/16 History Isosorbide Mononitrate [Isosorbide 15 mg PO QAM 11/09/16 11/13/16 History Mononitrate ER] Carvedilol [Coreg] 3.125 mg PO BID #60 tablet 11/13/16 11/13/16 Rx Nitroglycerin Sl Tab [Nitrostat] 0.4 mg SL Q5M PRN #1 bottle 11/13/16 11/13/16 Rx Allergies Allergy/AdvReac Type Severity Reaction Status Date / Time morphine AdvReac SHORTNESS Verified 07/23/16 15:54 OF BREATH 12 point system: reviewed and no additional remarkable complaints except as stated - Constitutional Constitutional: Present: as per HPI, headache(s) - EENT Eyes: Present: as per HPI Nose, mouth and throat: Present: as per HPI - Cardiovascular Cardiovascular: Present: as per HPI - Respiratory Respiratory: Present: as per HPI - Gastrointestinal Gastrointestinal: Present: as per HPI - Genitourinary Genitourinary: Present: as per HPI - Musculoskeletal Musculoskeletal: Present: as per HPI - Neurological Neurological: Present: as per HPI - Psychiatric Psychiatric: Present: as per HPI - Hematologic/Lymphatic Hematologic/Lymphatic: Present: as per HPI Medical,Surgical,& Family Hx - Medical History Cardio: History of: CAD, Hypertension, PR Endocrine: History of: Dyslipidemia Genitourinary: History of: Bladder Problem (leaky bladder) Musculoskeletal: History of: Back/Neck Problems (back pain) Reproductive: History of: Breast Cancer (double mastectomy) - Surgical History Cardiac Surgeries: Sugical HX of: Cardiac Catheterization (STENTS X 2) Reproductive Surgeries: Surgical HX of;: Breast Surgery - Family History Family History: Reports;: Family Cancer (sister), Family Heart Disease (mother father), Family Hypertension (mother father), Family Stroke (father) - Social History Smoking Status: Never smoker Exam - Constitutional Vitals: Vitals in the clinic, 11/30/2016, weight 124 pounds, height 61 inches, BMI 23.43. Temp 97.6 , heart rate 68, respiratory rate 16, Blood pressure 120/68, Pulse ox 97% at room air General appearance: no acute distress - Head Head exam: Present: normal inspection, normocephalic, atraumatic - Eye Eye exam: Present: EOMI Pupils: Present: LES - ENT ENT exam: Present: other (heart is here bilaterally) - Neck Neck exam: Present: normal inspection - Respiratory Respiratory exam: Present: clear to auscultation bilaterally, other ( breathing through mouth) - Cardiovascular Cardiovascular exam: Present: regular rate and rhythm - GI/Abdominal GI/Abdominal exam: Present: normal bowel sounds, tenderness (none), other ( mildly distended, no guarding, no rigidity, no rebound tenderness) - Extremities Exam Extremities exam: Present: edema (no pedal edema) - Neurological Exam Neurological exam: Present: alert, abnormal gait (walking slow, with help), motor sensory deficit (strength is 4/5 left upper and lower extremity, comparatively right upper extremity 4-/5, 3/5 right lower extremity), other ( speech mild stuttering) - Skin Skin exam: Present: normal color
[2016-11-30] MEDS ORDERED: ONDANSETRON 4 MG/2 ML VIAL IV PRN (12:39)
--- NOTE | 2016-11-30 13:18 | EKG Report ---
Stationary ECG Study [facility] Test Date: 11/30/2016 1:19:02 PM Pat Name: GERARDO DUMAS Department: Room: 281 Gender: F Mail Handler: JUAN : 1940 Requested by: Klaudia Chaudhry Order Number: [id number] Reading MD: MARISOL ALMANZA Intervals [place] Rate: 65 P: 67 TN: 214 QRS: 7 QRSD: 96 T: 4 QT: 388 QTc: 399 Interpretive Statements SINUS RHYTHM WITH first-degree A-V B at 65 bpm TN WP NST Electronically Signed On 12-01-16 12:20:14 CDT by MARISOL ALMANZA [email or web address]
[2016-11-30 13:27] LABS: Basophils # 0.1 10*3/uL (0.0-0.2); Basophils % 0.4 % (0.0-0.8); Eosinophils # 0.2 10*3/uL (0.0-0.87); Eosinophils % 2.1 % (0.00-10.9); Hematocrit 31.7 VOL% (35.7-47.0); Hemoglobin 10.5 GM/DL (12.0-16.0); Immature Granulocytes % 0.4 %; Immature Granulocytes Absolute 0.04 #; Lymphocytes # 2.3 10*3/uL (1.4-4.0); Lymphocytes % 20.9 % (21.3-54.2); Mean Corpuscular HGB Conc 33.1 GM/DL (32-36); Mean Corpuscular Hemoglobin 33 PG (27-34); Mean Corpuscular Volume 98.1 FL (87-102); Mean Platelet Volume 9.7 FL (9.6-12.0); Monocytes # 1.3 10*3/uL (0.11-0.8); Monocytes % 11.2 % (1.7-12.7); Neutrophils # 7.3 10*3/uL (1.4-7.4); Platelet Count 289 T/CUMM (130-400); Red Blood Count 3.23 MC/CUMM (3.8-5.5); Red Cell Distribution Width 13.2 % (9.3-17.3); White Blood Count 11.2 T/CUMM (4-12)
[2016-11-30 13:49] LABS: Alanine Aminotransferase 10 U/L (13-56); Albumin 2.9 G/DL (3.4-5.0); Alkaline Phosphatase 58 U/L (45-117); Aspartate Amino Transferase 12 U/L (0-37); Bilirubin,Total < 0.39 MG/DL (0.2-1.0); Blood Urea Nitrogen 36 MG/DL (7-18); Glucose 137 MG/DL (74-106); Osmolality,Calculated 292.1 MOS/KG (273-304); Potassium 4.3 MMOL/L (3.5-5.1); Sodium 142 MMOL/L (136-145); Total Protein 6.7 G/DL (6.4-8.3)
--- NOTE | 2016-11-30 14:23 | Event Note ---
Pt gone for CT scan
--- NOTE | 2016-11-30 14:26 | CT Report ---
CT head/brain wo con Indication: Right-sided weakness, new onset Comparison: CT brain dated July 23, 2016 Technique: Multiple axial tomographic images of the brain were obtained without the use of intravenous contrast. Findings: Midline structures are nondisplaced. There is no convincing evidence of acute intracranial hemorrhage . Atherosclerotic calcifications demonstrated. Moderate global volume loss present. Unchanged moderate prominence of bilateral lateral ventricles which is likely related to central volume loss. However, clinical correlation to exclude normal pressure hydrocephalus recommended. Moderate periventricular and subcortical hypoattenuation noted which is nonspecific but consistent with chronic microvascular ischemic change. Demyelinating process and vasculitis less likely considerations. Mild mucosal thickening of the left maxillary sinus. IMPRESSION: No significant change from July 13, 2016 with chronic findings as detailed above. The CT exam was performed using one or more of the following dose reduction techniques: Automated exposure control, adjustment of the mA and/or kV according to patient size, or use of iterative reconstruction technique. PROCEDURE INTERPRETED AT [facility] DEPARTMENT OF RADIOLOGY Final Report Signed by: Dr Allen Napoles
[2016-11-30] MEDS: ACETAMINOPHEN 325 MG TABLET PO PRN (15:30)
[2016-11-30] MEDS: CARBIDOPA/LEVODOPA 25-100 MG TABLET PO SCH ×2 (15:37→20:22)
--- NOTE | 2016-11-30 16:03 | Cardiology Consult Note ---
<Urmila Edwards - Last Filed: 11/30/16 14:54> Assessment and Plan - Time spent with patient Time spent with patient: Greater than 30 minutes (1) Weakness of right side of body Status: Acute Assessment and plan: See plan of care listed below. Current Visit: Yes (2) Shortness of breath Status: Acute Assessment and plan: See plan of care listed below. Current Visit: Yes (3) History of coronary artery disease Status: Chronic Assessment and plan: See plan of care listed below. Current Visit: Yes (4) Dyslipidemia Status: Chronic Assessment and plan: See plan of care listed below. Current Visit: Yes (5) History of inferior wall myocardial infarction Status: Chronic Assessment and plan: See plan of care listed below. Current Visit: Yes (6) Hypertension Status: Chronic Assessment and plan: See plan of care listed below. Current Visit: Yes (7) GERD (gastroesophageal reflux disease) Status: Chronic Assessment and plan: See plan of care listed below. Current Visit: Yes (8) Debility Status: Chronic Assessment and plan: See plan of care listed below. Current Visit: Yes (9) Chronic renal insufficiency, stage III (moderate) Status: Chronic Assessment and plan: See plan of care listed below. Current Visit: Yes History of Present Illness - Data of Consult Patient: known to practice within the last 3 years Consult date: 11/30/16 Requesting Physician: Klaudia Chaudhry Primary care physician: Yann Groves - Consult Narrative Reason for consult: History of CAD History of present illness: Principal Statistical Scientist: Dr. Wilcox PCP: Dr. Yann Groves Ms. Howell is a 76 year old female with known history of coronary artery disease, routinely followed by Dr. Wilcox. Patient has cardiac risk factors significant for hypertension, hyperlipidemia, known history of coronary artery disease and sedentary lifestyle. Patient is a lifetime non-smoker. Patient has a past medical history of GERD, aortic sclerosis, chronic anxiety, hard of hearing and history of breast cancer (now in remission). Patient is status post inferior myocardial infarction with stent placement to proximal RCA October. She had a cardiac stress test December 2011 which was normal. She was last seen in the cardiology clinic May 2016. Patient was just recently discharged from [facility] November 13, 2016 after acute non- ST elevation inferior RI. She underwent heart catheterization per Dr. Wilcox with the following impressions noted: IMPRESSIONS: 1. LVEDP 10 2. ejection fraction 60% with inferobasal hypokinesis 3. no mitral regurgitation 4. no aortic valve gradient 5. left main trunk-patent 6. LAD-40% proximal after first septal and diagonal 7. diagonal-small, mild disease 8. circumflex system-small, mild irregularities only 9. dominant right coronary-95% in-stent restenosis in the proximal vessel. 10. successful proximal RCA stent 3.0 by 18 mm Alpine Zions drug-coated stent, postdilated 16 sendy for 30 seconds, creating a 3.24 mm lumen. Excellent angiographic result obtained. Patient was seen and examined on the telemetry unit. Daughter is at bedside. She denies experiencing chest pain, heaviness and tightness. She reports that she has felt much better after stent placement earlier this month. She has been compliant with dual antiplatelet therapy. Yesterday, she developed generalized weakness and dyspnea on exertion. She denies fever, chills, vomiting, abdominal pain, melena, orthopnea, PND and lower extremity swelling. She does report a dry hacking cough. She was discharged home from [facility] rehab facility yesterday, in TMR from 11/13/16 - 11/29/16. Today, she had a walk- in appointment with Dr. Chaudhry. After complaining of right-sided weakness she was directly admitted to [facility] for further evaluation. She underwent head CT which revealed no significant change from July 13, 2016. Dr. Watson has been consulted. Will await his additional recommendations. At this point, patient appears to be stable from a cardiac standpoint. She is currently without complaints of chest pain, heaviness and tightness. She reports great compliance with dual antiplatelet therapy and has felt much better after her stent was placed November 12, 2016. She does however complain of mild shortness of breath. Chest x-ray is pending. Will obtain BNP. UA pending. Blood cultures pending. She is without leukocytosis or left shift. Preserved ejection fraction. I have nothing further to add at this time. Will discuss with Dr. Christianson and await his additional recommendations. ASSESSMENT/PLAN: 1. RIGHT SIDED WEAKNESS - Unknown etiology. Head CT revealed no significant change. Dr. Watson has been consulted. Defer further workup of this to attending. 2. SHORTNESS OF BREATH - Will order chest x-ray and BNP. Afebrile. Without leukocytosis or left shift. Ejection fraction noted to be 60% per heart catheterization earlier this month. 3. CORONARY ARTERY DISEASE, STATUS POST NONSTEMI PCI TO RCA - Patient has known coronary artery disease with history of inferior myocardial infarction with stent to RCA. Reports compliance with dual antiplatelet therapy. Her medication regimen has been reviewed. Continue aspirin, Plavix, lipid-lowering agent, Coreg, DANNA inhibitor and Imdur. Will monitor daily BMP with DANNA inhibitor. 4. DYSLIPIDEMIA - Lipid lowering agent will be continued. No need to check lipid panel as it was just checked last hospitalization. LDL at that time was at goal. 5. HYPERTENSION - Under well control. Continue current plan of care. 6. GERD - I will assure patient has PPI on board. 7. RENAL INSUFFICIENCY, STAGE 3 - We will monitor BMP daily. Creatinine today 1.6. This appears to be patient's baseline. 8. DEBILITY - Will consult physical therapy. CC: Klaudia Chaudhry MD - Home Medications and Allergies Home Medications: Home Medications Medication Instructions Recorded Confirmed Type Atorvastatin [Lipitor] 10 mg PO BEDTIME 05/30/15 11/30/16 History Carbidopa/Levodopa 25-100 [Sinemet 1 tablet PO TID 05/30/15 11/30/16 History 25-100] Clopidogrel Bisulfate [Clopidogrel] 75 mg PO QAM 05/30/15 11/30/16 History Estrogens(Conj) Tab [Premarin Tab] 0.45 mg PO QAM 05/30/15 11/30/16 History Losartan Potassium 100 mg PO QAM 05/30/15 11/30/16 History Magnesium Oxide 400 mg PO BEDTIME 05/30/15 11/30/16 History Meclizine [Antivert] 25 mg PO TID PRN 05/30/15 11/30/16 History Memantine [Namenda] 10 mg PO BID 05/30/15 11/30/16 History Omeprazole [Prilosec] 20 mg PO QAM 05/30/15 11/30/16 History Potassium Chloride Packet 20 meq PO DAILY 05/30/15 11/30/16 History Solifenacin [Vesicare] 5 mg PO QAM 05/30/15 11/30/16 History Thioridazine [Mellaril] 25 mg PO QAM 05/30/15 11/30/16 History Aspirin EC Tab 81 mg PO QAM 11/09/16 11/30/16 History Furosemide 40 mg PO QAM 11/09/16 11/30/16 History Isosorbide Mononitrate [Isosorbide 15 mg PO QAM 11/09/16 11/30/16 History Mononitrate ER] Carvedilol [Coreg] 3.125 mg PO BID #60 tablet 11/13/16 11/30/16 Rx Nitroglycerin Sl Tab [Nitrostat] 0.4 mg SL Q5M PRN #1 bottle 11/13/16 11/30/16 Rx Allergies/Adverse Reactions: Allergies Allergy/AdvReac Type Severity Reaction Status Date / Time morphine AdvReac SHORTNESS Verified 07/23/16 15:54 OF BREATH - Constitutional Constitutional: Present: fatigue, lethargy, malaise, weakness. Absent: chills, fever(s), frequent falls, weight gain, weight loss - Cardiovascular Cardiovascular: Present: as per HPI, dyspnea, dyspnea on exertion. Absent: chest pain at rest, chest pain with activity, claudication, diaphoresis, edema, radiating jaw, neck or arm pain, lightheadedness, orthopnea, palpitations, PND - Respiratory Respiratory: Present: cough, dyspnea on exertion. Absent: dyspnea, hemoptysis, wheezing, snoring, pain on inspiration, change in phlegm color - Gastrointestinal Gastrointestinal: Present: nausea. Absent: abdominal pain, hematemesis, hematochezia, loose stools, vomiting - Neurological Neurological: Present: abnormal gait. Absent: abnormal speech, behavioral changes, syncope Medical,Surgical,& Family Hx - Medical History Cardio: History of: CAD, Hypertension, RI Endocrine: History of: Dyslipidemia Musculoskeletal: History of: Back/Neck Problems (back pain) Reproductive: History of: Breast Cancer (double mastectomy) - Surgical History Cardiac Surgeries: Sugical HX of: Cardiac Catheterization (STENTS X 2) Reproductive Surgeries: Surgical HX of;: Breast Surgery - Family History Family History: Reports;: Family Cancer (sister), Family Heart Disease (mother father), Family Hypertension (mother father), Family Stroke (father) - Social History Smoking Status: Never smoker Frequency of Alcohol Use: None Type of Drug Use: None Lives With:: Alone Functional capacity: independent ambulation Physical Examination Vital Signs Temp Pulse Resp BP Pulse Ox 97.9 F 66 18 134/63 99 11/30/16 13:33 11/30/16 13:33 11/30/16 13:33 11/30/16 13:33 11/30/16 13:33 Exam: General: Appears well with no apparent distress. Pleasant and cooperative. Appears comfortable. HEENT: PERRL, normocephalic, atraumatic. Mucous membranes moist. No jaundice noted. Conjunctiva moist and clear, sclerae anicteric Neck: No JVD/HJR, no thyromegaly or lymphadenopathy noted. Cardiac: Regular rate and rhythm. Lungs: Decreased lung sounds. Not requiring oxygen. Abdomen: Soft, bowel sounds normoactive. Nontender and nondistended. No abdominal bruit or thrill noted. No masses noted. Extremities: No clubbing, cyanosis noted. No edema noted. Upper extremity pulses 2+. Lower extremity pulses 2+. Capillary refill less than 3 seconds. Skin: No unusual lesions or rashes. No skin breakdown appreciated. Neuro: Awake, alert and oriented 3. Result/EKG - Labs CBC & BMP: 11/30/16 13:14 11/30/16 13:14 Lab Results: I have reviewed the past 24 hour labs Labs: Laboratory Results - last 24 hr 11/30/16 11/30/16 11/30/16 13:14 13:14 13:14 WBC 11.2 RBC 3.23 L Hgb 10.5 L Hct 31.7 L MCV 98.1 MCH 33 MCHC 33.1 RDW 13.2 Plt Count 289 MPV 9.7 Neut % (Auto) 65.0 Lymph % (Auto) 20.9 L [place] % (Auto) 11.2 Eos % (Auto) 2.1 Baso % (Auto) 0.4 Neut # (Auto) 7.3 Lymph # (Auto) 2.3 [place] # (Auto) 1.3 H Eos # (Auto) 0.2 Baso # (Auto) 0.1 Immature Gran % 0.4 Nucleated RBC % 0.0 Immature Gran # 0.04 Nucleated RBCs # 0.00 Sodium 142 Potassium 4.3 Chloride 108 H Carbon Dioxide 25 Anion Gap 13.3 BUN 36 H Creatinine 1.60 H GFR Calculation 27 BUN/Creatinine Ratio 22.00 H Glucose 137 H Calculated Osmolality 292.1 Calcium 9.0 Phosphorus Magnesium 2.2 Total Bilirubin < 0.39 AST 12 ALT 10 L Alkaline Phosphatase 58 Total Protein 6.7 Albumin 2.9 L Globulin 3.8 H Albumin/Globulin Ratio 0.7 L 11/30/16 13:14 WBC RBC Hgb Hct MCV MCH MCHC RDW Plt Count MPV Neut % (Auto) Lymph % (Auto) [place] % (Auto) Eos % (Auto) Baso % (Auto) Neut # (Auto) Lymph # (Auto) [place] # (Auto) Eos # (Auto) Baso # (Auto) Immature Gran % Nucleated RBC % Immature Gran # Nucleated RBCs # Sodium Potassium Chloride Carbon Dioxide Anion Gap BUN Creatinine GFR Calculation BUN/Creatinine Ratio Glucose Calculated Osmolality Calcium Phosphorus 4.0 Magnesium Total Bilirubin AST ALT Alkaline Phosphatase Total Protein Albumin Globulin Albumin/Globulin Ratio Quality Measures - VTE Contraindication to Pharmacological VTE Prophylaxis: High Risk of Bleeding Contraindication to Mechanical VTE Prophylaxis: Ischemic Vascular Disease <Santos Christianson - Last Filed: 11/30/16 17:48> History of Present Illness - Consult Narrative History of present illness: Ms. Howell is a 76 year old female CC: Klaudia Chaudhry MD Physical Examination Vital Signs Temp Pulse Resp BP Pulse Ox 97.9 F 66 18 134/63 99 11/30/16 13:33 11/30/16 13:33 11/30/16 13:33 11/30/16 13:33 11/30/16 13:33 Result/EKG - Labs CBC & BMP: 11/30/16 13:14 11/30/16 13:14 Labs: Laboratory Results - last 24 hr 11/30/16 11/30/16 11/30/16 13:14 13:14 13:14 WBC 11.2 RBC 3.23 L Hgb 10.5 L Hct 31.7 L MCV 98.1 MCH 33 MCHC 33.1 RDW 13.2 Plt Count 289 MPV 9.7 Neut % (Auto) 65.0 Lymph % (Auto) 20.9 L [place] % (Auto) 11.2 Eos % (Auto) 2.1 Baso % (Auto) 0.4 Neut # (Auto) 7.3 Lymph # (Auto) 2.3 [place] # (Auto) 1.3 H Eos # (Auto) 0.2 Baso # (Auto) 0.1 Immature Gran % 0.4 Nucleated RBC % 0.0 Immature Gran # 0.04 Nucleated RBCs # 0.00 Sodium 142 Potassium 4.3 Chloride 108 H Carbon Dioxide 25 Anion Gap 13.3 BUN 36 H Creatinine 1.60 H GFR Calculation 27 BUN/Creatinine Ratio 22.00 H Glucose 137 H Calculated Osmolality 292.1 Calcium 9.0 Phosphorus Magnesium 2.2 Total Bilirubin < 0.39 AST 12 ALT 10 L Alkaline Phosphatase 58 Total Protein 6.7 Albumin 2.9 L Globulin 3.8 H Albumin/Globulin Ratio 0.7 L Urine Color Urine Appearance Urine pH Ur Specific [place] Urine Protein Urine Glucose (UA) Urine Ketones Urine Blood Urine Nitrate Urine Bilirubin Urine Urobilinogen Urine Leukocytes Urine WBC Ur Squamous Epith Cells Ur Culture Indicated? 11/30/16 11/30/16 13:14 Unknown WBC RBC Hgb Hct MCV MCH MCHC RDW Plt Count MPV Neut % (Auto) Lymph % (Auto) [place] % (Auto) Eos % (Auto) Baso % (Auto) Neut # (Auto) Lymph # (Auto) [place] # (Auto) Eos # (Auto) Baso # (Auto) Immature Gran % Nucleated RBC % Immature Gran # Nucleated RBCs # Sodium Potassium Chloride Carbon Dioxide Anion Gap BUN Creatinine GFR Calculation BUN/Creatinine Ratio Glucose Calculated Osmolality Calcium Phosphorus 4.0 Magnesium Total Bilirubin AST ALT Alkaline Phosphatase Total Protein Albumin Globulin Albumin/Globulin Ratio Urine Color Straw Urine Appearance Clear Urine pH 6.0 Ur Specific [place] 1.006 Urine Protein Negative Urine Glucose (UA) Negative Urine Ketones Negative Urine Blood Negative Urine Nitrate Negative Urine Bilirubin Negative Urine Urobilinogen < 2.0 H Urine Leukocytes Negative Urine WBC <1 Ur Squamous Epith Cells Occasional Ur Culture Indicated? Ordered separately
--- NOTE | 2016-11-30 17:19 | XRay Report ---
XR chest 1V Indication: Dyspnea Comparison: 09 November 2016 Findings: The heart and mediastinum are stable in size and configuration. The pulmonary vascularity is normal in caliber. No lung infiltrates, effusions, pneumothorax or other abnormality is demonstrated. Impression: No acute cardiopulmonary disease. PROCEDURE INTERPRETED AT [facility] DEPARTMENT OF RADIOLOGY Final Report Signed by: Dr. Ricky Pittman
[2016-11-30 17:21] LABS: Apearance,Urine CLEAR (Clear); Bilirubin,Urine Negative (Negative); Blood, Urine Negative (Negative); Glucose,Urine (UA) Negative (Negative); Ketones,Urine Negative (Negative); Nitrite,Urine Negative (Negative); Protein,Urine Negative; Squamous Epithelial Cell,Urine Occasional /HPF (0-10); Urine Color Straw (Yellow); Urine Specific Gravity 1.006 (1.001-1.035); Urine Urobilinogen < 2.0 EU/DL (0.2-1.0); WBC,Urine <1 /HPF (0-6)
[2016-11-30] MEDS: CARVEDILOL 3.125 MG TABLET PO SCH (20:22)
[2016-11-30] MEDS: MEMANTINE 10 MG TABLET PO SCH (20:22)
[2016-11-30] MEDS ORDERED: ATORVASTATIN 10 MG TABLET PO SCH (21:00)
[2016-12-01] MEDS: ACETAMINOPHEN 325 MG TABLET PO PRN (03:14)
[2016-12-01 05:05] LABS: Basophils # 0.1 10*3/uL (0.0-0.2); Basophils % 0.4 % (0.0-0.8); Eosinophils # 0.4 10*3/uL (0.0-0.87); Eosinophils % 3.1 % (0.00-10.9); Hematocrit 26.9 VOL% (35.7-47.0); Immature Granulocytes % 0.5 %; Immature Granulocytes Absolute 0.06 #; Lymphocytes # 3.1 10*3/uL (1.4-4.0); Lymphocytes % 27.2 % (21.3-54.2); Mean Corpuscular HGB Conc 33.5 GM/DL (32-36); Mean Corpuscular Hemoglobin 32 PG (27-34); Mean Corpuscular Volume 96.1 FL (87-102); Monocytes # 1.2 10*3/uL (0.11-0.8); Monocytes % 10.8 % (1.7-12.7); Neutrophils # 6.6 10*3/uL (1.4-7.4); Platelet Count 303 T/CUMM (130-400); Red Cell Distribution Width 13.2 % (9.3-17.3); White Blood Count 11.5 T/CUMM (4-12)
[2016-12-01 05:37] LABS: Calcium 8.9 MG/DL (8.5-10.1); Magnesium 2.1 MG/DL (1.8-2.4); Osmolality,Calculated 284.4 MOS/KG (273-304)
[2016-12-01 05:42] LABS: Troponin I Only < 0.015 NG/ML (0.00-0.045)
--- NOTE | 2016-12-01 07:54 | EKG Report ---
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
[2016-12-01] MEDS: ASPIRIN EC 81 MG TABLET PO SCH (08:43)
[2016-12-01] MEDS: CARBIDOPA/LEVODOPA 25-100 MG TABLET PO SCH ×3 (08:43→21:08)
[2016-12-01] MEDS: THIORIDAZINE 25 MG TABLET PO SCH (08:43)
[2016-12-01] MEDS: ISOSORBIDE MONONITRATE 30 MG TABLET PO SCH (08:44)
[2016-12-01] MEDS: PANTOPRAZOLE 40 MG TABLET PO SCH (08:44)
[2016-12-01] MEDS: CARVEDILOL 3.125 MG TABLET PO SCH ×2 (08:44→21:08)
[2016-12-01] MEDS: CLOPIDOGREL 75 MG TABLET PO SCH (08:44)
[2016-12-01] MEDS: LOSARTAN 25 MG TABLET PO SCH (08:49)
[2016-12-01] MEDS: MEMANTINE 10 MG TABLET PO SCH ×2 (08:49→21:08)
[2016-12-01] MEDS ORDERED: FUROSEMIDE 20 MG TABLET PO SCH (09:00)
--- NOTE | 2016-12-01 09:26 | Internal Med Progress Note ---
Assessment and Plan (1) Weakness of right side of body Status: Acute Assessment and plan: 76-year-old female admitted to acute care * Right-sided weakness. Her weakness has improved this morning. CT head was negative. Neurology to see today * Recent NE. Status post recent RCA stent. Her ejection fraction was normal at cath. * Hypertension. Stable * Mild anemia. Hematocrit stable * Discussed with patient and family Current Visit: Yes (2) Chronic renal insufficiency, stage III (moderate) Status: Chronic Current Visit: Yes (3) Dyslipidemia Status: Chronic Current Visit: Yes (4) GERD (gastroesophageal reflux disease) Status: Chronic Current Visit: Yes (5) History of coronary artery disease Status: Chronic Current Visit: Yes (6) Hypertension Status: Chronic Current Visit: Yes (7) Dyslipidemia Status: Chronic Current Visit: No (8) GERD (gastroesophageal reflux disease) Status: Chronic Current Visit: No Internal Medicine - PN: Subj Interval history: Patient seen and examined. She was admitted with right-sided weakness a day after discharge from rehab. She is feeling better this morning. He is able to move both upper and lower extremities she denies any chest pain or shortness of breath. She denies any nausea vomiting or diarrhea Exam (Progress Note) - Constitutional Vitals: Period Temp Pulse Resp BP Sys/Marie Pulse Ox Last 24 Hr 96.9 F-98.9 F 66-72 18-18 110-164/56-84 95-99 Exam: Examination: GENERAL: NAD. HEENT: PERRLA. EOMI. NECK: Neck is supple. CVS: Regular rate and rhythm. S1 and S2 are normal. RESPIRATORY: Lungs are clear. No rales or rhonchi. ABDOMEN: Soft and nontender. Bowel sounds are present. EXT: No edema. 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 Cranial nerves II through XII are grossly intact. Motor strength is 4/5 both upper and lower extremities with the more weakness on the right upper and lower extremity SKIN: Warm and dry. Results - Labs CBC & BMP: 12/01/16 04:34 12/01/16 04:34 Lab Results: I have reviewed the past 24 hour labs Quality Measures - VTE Contraindication to Pharmacological VTE Prophylaxis: High Risk of Bleeding Contraindication to Mechanical VTE Prophylaxis: Ischemic Vascular Disease
--- NOTE | 2016-12-01 12:00 | Cardiology Progress Note ---
Assessment and Plan (1) Fatigue Status: Acute Assessment and plan: 1. Ms. Howell is stable clinically, and has no symptoms to suggest a cardiac issue status post coronary stent placement couple weeks ago. 2. Moderate normocytic anemia noted 3. Abnormal CT brain with reported history of Parkinson's disease; defer to primary service. 4. She has follow-up with Dr. mckay the first week of December 5. I will sign off given no active cardiac problems. Please call if needed prior to discharge Current Visit: Yes (2) History of ND (myocardial infarction) Status: Chronic Current Visit: No (3) Hypertension Status: Chronic Current Visit: Yes Cardiology - PN: Subj Interval history: Ms. Howell has no new complaint. She still slept fairly well. She has not had any chest pain or dyspnea. She has no history of bleeding clinically. Exam (Progress Note) - Constitutional Vitals: Period Temp Pulse Resp BP Sys/Marie Pulse Ox Last 24 Hr 96.1 F-98.9 F 62-72 18-18 110-164/56-84 95-99 General appearance: normal weight, no acute distress - Head Head exam: Present: normal inspection, normocephalic, atraumatic - Neck Neck exam: Present: normal inspection - Respiratory Respiratory exam: Present: clear to auscultation bilaterally - Cardiovascular Cardiovascular exam: Present: regular rate and rhythm. Absent: rubs, systolic murmur - GI/Abdominal GI/Abdominal exam: Present: soft. Absent: tenderness - Extremities Exam Extremities exam: Absent: edema - Neurological Exam Neurological exam: Present: alert - Psychiatric Psychiatric exam: Present: flat affect Result/EKG - Labs CBC & BMP: 12/01/16 04:34 12/01/16 04:34 Labs: Laboratory Results - last 24 hr 11/30/16 11/30/16 11/30/16 13:14 13:14 13:14 WBC 11.2 RBC 3.23 L Hgb 10.5 L Hct 31.7 L MCV 98.1 MCH 33 MCHC 33.1 RDW 13.2 Plt Count 289 MPV 9.7 Neut % (Auto) 65.0 Lymph % (Auto) 20.9 L [place] % (Auto) 11.2 Eos % (Auto) 2.1 Baso % (Auto) 0.4 Neut # (Auto) 7.3 Lymph # (Auto) 2.3 [place] # (Auto) 1.3 H Eos # (Auto) 0.2 Baso # (Auto) 0.1 Immature Gran % 0.4 Nucleated RBC % 0.0 Immature Gran # 0.04 Nucleated RBCs # 0.00 Sodium 142 Potassium 4.3 Chloride 108 H Carbon Dioxide 25 Anion Gap 13.3 BUN 36 H Creatinine 1.60 H GFR Calculation 27 BUN/Creatinine Ratio 22.00 H Glucose 137 H Calculated Osmolality 292.1 Calcium 9.0 Phosphorus Magnesium 2.2 Total Bilirubin < 0.39 AST 12 ALT 10 L Alkaline Phosphatase 58 Total Creatine Kinase CK-MB (CK-2) Troponin I B-Natriuretic Peptide Total Protein 6.7 Albumin 2.9 L Globulin 3.8 H Albumin/Globulin Ratio 0.7 L Free T4 TSH 3rd Generation Urine Color Urine Appearance Urine pH Ur Specific [place] Urine Protein Urine Glucose (UA) Urine Ketones Urine Blood Urine Nitrate Urine Bilirubin Urine Urobilinogen Urine Leukocytes Urine WBC Ur Squamous Epith Cells Ur Culture Indicated? 11/30/16 11/30/16 11/30/16 13:14 17:01 Unknown WBC RBC Hgb Hct MCV MCH MCHC RDW Plt Count MPV Neut % (Auto) Lymph % (Auto) [place] % (Auto) Eos % (Auto) Baso % (Auto) Neut # (Auto) Lymph # (Auto) [place] # (Auto) Eos # (Auto) Baso # (Auto) Immature Gran % Nucleated RBC % Immature Gran # Nucleated RBCs # Sodium Potassium Chloride Carbon Dioxide Anion Gap BUN Creatinine GFR Calculation BUN/Creatinine Ratio Glucose Calculated Osmolality Calcium Phosphorus 4.0 Magnesium Total Bilirubin AST ALT Alkaline Phosphatase Total Creatine Kinase CK-MB (CK-2) Troponin I B-Natriuretic Peptide 273 H Total Protein Albumin Globulin Albumin/Globulin Ratio Free T4 TSH 3rd Generation Urine Color Straw Urine Appearance Clear Urine pH 6.0 Ur Specific [place] 1.006 Urine Protein Negative Urine Glucose (UA) Negative Urine Ketones Negative Urine Blood Negative Urine Nitrate Negative Urine Bilirubin Negative Urine Urobilinogen < 2.0 H Urine Leukocytes Negative Urine WBC <1 Ur Squamous Epith Cells Occasional Ur Culture Indicated? Ordered separately 12/01/16 12/01/16 12/01/16 04:34 04:34 04:34 WBC 11.5 RBC 2.80 L Hgb 9.0 L Hct 26.9 L MCV 96.1 MCH 32 MCHC 33.5 RDW 13.2 Plt Count 303 MPV 10.0 Neut % (Auto) 58.0 Lymph % (Auto) 27.2 [place] % (Auto) 10.8 Eos % (Auto) 3.1 Baso % (Auto) 0.4 Neut # (Auto) 6.6 Lymph # (Auto) 3.1 [place] # (Auto) 1.2 H Eos # (Auto) 0.4 Baso # (Auto) 0.1 Immature Gran % 0.5 Nucleated RBC % 0.0 Immature Gran # 0.06 Nucleated RBCs # 0.00 Sodium 140 Potassium 4.0 Chloride 105 Carbon Dioxide 27 Anion Gap 12.0 BUN 32 H Creatinine 1.60 H GFR Calculation 27 BUN/Creatinine Ratio 20.00 Glucose 87 Calculated Osmolality 284.4 Calcium 8.9 Phosphorus Magnesium 2.1 Total Bilirubin AST ALT Alkaline Phosphatase Total Creatine Kinase 30 CK-MB (CK-2) 1.3 Troponin I < 0.015 B-Natriuretic Peptide Total Protein Albumin Globulin Albumin/Globulin Ratio Free T4 1.30 TSH 3rd Generation 1.820 Urine Color Urine Appearance Urine pH Ur Specific [place] Urine Protein Urine Glucose (UA) Urine Ketones Urine Blood Urine Nitrate Urine Bilirubin Urine Urobilinogen Urine Leukocytes Urine WBC Ur Squamous Epith Cells Ur Culture Indicated? Quality Measures - VTE Contraindication to Pharmacological VTE Prophylaxis: High Risk of Bleeding Contraindication to Mechanical VTE Prophylaxis: Ischemic Vascular Disease
--- NOTE | 2016-12-01 15:12 | Ultrasound Report ---
Carotid artery ultrasound Indication: Stroke Comparison: None available Color Doppler flow and spectral analysis was performed. Findings: Small amount of atherosclerotic plaque is present in both proximal internal carotid arteries. The peak systolic velocity in the right is 41 cm/s . Ratio of flow is 1.1. The peak systolic velocity in the left is 86 cm/s . Ratio of flow is 0.9 Bilateral antegrade vertebral flow is seen. Impression: No evidence of hemodynamically significant stenosis is seen, 0-49% estimated stenosis. Consensus conference on the carotid ultrasound criteria used. Ultrasound images were captured and stored. PROCEDURE INTERPRETED AT [facility] DEPARTMENT OF RADIOLOGY Final Report Signed by: Dr. Ricky Pittman
--- NOTE | 2016-12-01 15:54 | Neurology Consult Note ---
History of Present Illness History of present illness: 76 years old right-handed white lady who recently been discharged from [facility] for postop cardiac care and rehabilitation. She had an inferior NM and is status post cardiac stenting this past hospitalization at [facility]. She got back home from [facility] and started feeling weak again. It was noted that she was leaning towards right while sitting with a weak voice dizziness and some questionable axillary weakness. She was brought back into the hospital and had a CT scan of the head done which revealed no acute abnormalities. Patient reported that she is feeling much better now. She denies any focal weakness. However she has not been up and about. Her H&H is down to 9 and 26. Home Medications Medication Instructions Recorded Confirmed Type Atorvastatin [Lipitor] 10 mg PO BEDTIME 05/30/15 11/30/16 History Carbidopa/Levodopa 25-100 [Sinemet 1 tablet PO TID 05/30/15 11/30/16 History 25-100] Clopidogrel Bisulfate [Clopidogrel] 75 mg PO QAM 05/30/15 11/30/16 History Estrogens(Conj) Tab [Premarin Tab] 0.45 mg PO QAM 05/30/15 11/30/16 History Losartan Potassium 100 mg PO QAM 05/30/15 11/30/16 History Magnesium Oxide 400 mg PO BEDTIME 05/30/15 11/30/16 History Meclizine [Antivert] 25 mg PO TID PRN 05/30/15 11/30/16 History Memantine [Namenda] 10 mg PO BID 05/30/15 11/30/16 History Omeprazole [Prilosec] 20 mg PO QAM 05/30/15 11/30/16 History Potassium Chloride Packet 20 meq PO DAILY 05/30/15 11/30/16 History Solifenacin [Vesicare] 5 mg PO QAM 05/30/15 11/30/16 History Thioridazine [Mellaril] 25 mg PO QAM 05/30/15 11/30/16 History Aspirin EC Tab 81 mg PO QAM 11/09/16 11/30/16 History Furosemide 40 mg PO QAM 11/09/16 11/30/16 History Isosorbide Mononitrate [Isosorbide 15 mg PO QAM 11/09/16 11/30/16 History Mononitrate ER] Carvedilol [Coreg] 3.125 mg PO BID #60 tablet 11/13/16 11/30/16 Rx Nitroglycerin Sl Tab [Nitrostat] 0.4 mg SL Q5M PRN #1 bottle 11/13/16 11/30/16 Rx Allergies Allergy/AdvReac Type Severity Reaction Status Date / Time morphine AdvReac SHORTNESS Verified 07/23/16 15:54 OF BREATH 12 point system: reviewed and no additional remarkable complaints except as stated Medical,Surgical,& Family Hx - Medical History Cardio: History of: CAD, Hypertension, NM Endocrine: History of: Dyslipidemia Genitourinary: History of: Bladder Problem (leaky bladder) Musculoskeletal: History of: Back/Neck Problems (back pain) Reproductive: History of: Breast Cancer (double mastectomy) - Surgical History Cardiac Surgeries: Sugical HX of: Cardiac Catheterization (STENTS X 2) Reproductive Surgeries: Surgical HX of;: Breast Surgery - Family History Family History: Reports;: Family Cancer (sister), Family Heart Disease (mother father), Family Hypertension (mother father), Family Stroke (father) - Social History Smoking Status: Never smoker Frequency of Alcohol Use: None Type of Drug Use: None Exam - Constitutional Vitals: Period Temp Pulse Resp BP Sys/Marie Pulse Ox Last 24 Hr 96.1 F-98.9 F 62-72 18-18 110-164/55-84 95-99 Exam: GENERAL: Patient is in no acute distress. NECK: Neck is supple. There is no JVD. No carotid bruits present. No thyroid masses. CVS: First and second heart sounds are normal. There is no S3 present. Regular rate and rhythm. RESPIRATORY: Lungs are clear to auscultation without any rales or rhonchi. ABDOMEN: Soft and non-tender. Bowel sounds are present. There is no hepatosplenomegaly. EXT: There is no palpable edema. Peripheral pulses are present. Skin: No rashes Central Nervous system: General: Alert, awake and Oriented x 3 Speech: Fluent Comprehension: Intact and normal Facial expressions: Normal Cranial Nerves: CN1/Olfactory: Normal CN II/ Optic: Normal, Visual Mei unreliable CN III, and : LES & EOMI CN V: Normal & intact CN VII: face is symmetric CNVIII: Normal CN XI/X/XI/XII: Intact and Normal Motor: Bulk and Tone is normal. Strength in the right 3-4/5 Strength in the left 3-4/5 Sensory: Grossly intact for all the modalities of PP, LT and temp sense Reflexes: 1+ and symmetrical Cerebellar function: slow finger to nose and heel to valentino testing. Toes: Equivocal Gait: Not tested at this Results - Labs CBC & BMP: 12/01/16 04:34 12/01/16 04:34 Assessment and Plan (1) TIA (transient ischemic attack) Status: Acute Assessment and plan: Continue aspirin and Plavix for now. MRI of the brain Consult PT and OT Current Visit: Yes
[2016-12-02 05:14] LABS: Basophils # 0.1 10*3/uL (0.0-0.2); Basophils % 0.4 % (0.0-0.8); Eosinophils # 0.4 10*3/uL (0.0-0.87); Eosinophils % 3.2 % (0.00-10.9); Hemoglobin 9.1 GM/DL (12.0-16.0); Immature Granulocytes % 0.4 %; Immature Granulocytes Absolute 0.04 #; Lymphocytes # 3.5 10*3/uL (1.4-4.0); Lymphocytes % 30.8 % (21.3-54.2); Mean Corpuscular HGB Conc 33.7 GM/DL (32-36); Mean Corpuscular Hemoglobin 33 PG (27-34); Mean Corpuscular Volume 96.4 FL (87-102); Mean Platelet Volume 10.2 FL (9.6-12.0); Monocytes # 1.2 10*3/uL (0.11-0.8); Monocytes % 10.5 % (1.7-12.7); Neutrophils # 6.1 10*3/uL (1.4-7.4); Neutrophils % 54.7 % (38.7-73.9); Platelet Count 299 T/CUMM (130-400); Red Cell Distribution Width 13.2 % (9.3-17.3); White Blood Count 11.2 T/CUMM (4-12)
[2016-12-02 05:40] LABS: Calcium 8.8 MG/DL (8.5-10.1); Calcium 9.1 MG/DL (8.5-10.1); Osmolality,Calculated 280.7 MOS/KG (273-304); Osmolality,Calculated 281.5 MOS/KG (273-304); Potassium 4.3 MMOL/L (3.5-5.1); Potassium 4.5 MMOL/L (3.5-5.1)
[2016-12-02] MEDS: MEMANTINE 10 MG TABLET PO SCH ×2 (08:13→21:35)
[2016-12-02] MEDS: PANTOPRAZOLE 40 MG TABLET PO SCH (08:13)
[2016-12-02] MEDS: LOSARTAN 25 MG TABLET PO SCH (08:13)
[2016-12-02] MEDS: ISOSORBIDE MONONITRATE 30 MG TABLET PO SCH (08:13)
[2016-12-02] MEDS: CLOPIDOGREL 75 MG TABLET PO SCH (08:13)
[2016-12-02] MEDS: CARBIDOPA/LEVODOPA 25-100 MG TABLET PO SCH ×3 (08:13→21:35)
[2016-12-02] MEDS: ASPIRIN EC 81 MG TABLET PO SCH (08:13)
[2016-12-02] MEDS: CARVEDILOL 3.125 MG TABLET PO SCH ×2 (08:13→21:35)
[2016-12-02] MEDS: THIORIDAZINE 25 MG TABLET PO SCH (08:18)
--- NOTE | 2016-12-02 10:50 | Event Note ---
Patient is not in her room and has gone for MRI
--- NOTE | 2016-12-02 11:19 | Magnetic Resonance Report ---
MRI brain without contrast Indication: Right-sided hemiparesis Comparison: CT brain 30 November 2016 Technique: Axial sagittal and coronal imaging of the brain is performed without contrast. T1, T2, FLAIR and diffusion weighted sequences are performed. Findings: No evidence of restricted diffusion seen. No evidence of intracranial hemorrhage, mass, mass effect or midline shift is seen. Numerous foci of signal hypointensity on the FLAIR and gradient sequence are present in the cerebral hemispheres most prominent in the basal ganglia. Similar findings were present on prior exam. There is moderate to severe diffuse cerebral atrophy. Decreased white matter density is present in both cerebral hemispheres periventricular and subcortical in location. These findings are similar to previous exam. Remaining brain parenchyma has normal signal and differentiation. The ventricles and cisterns are appropriate in caliber. Posterior fossa, mid brain and pituitary gland appear within normal limits. No evidence of cranial or skull base abnormality seen. Impression: No evidence of acute infarct or other acute process demonstrated. PROCEDURE INTERPRETED AT [facility] DEPARTMENT OF RADIOLOGY Final Report Signed by: Dr. Ricky Pittman
--- NOTE | 2016-12-02 11:49 | Internal Med Progress Note ---
Assessment and Plan (1) Weakness of right side of body Status: Acute Assessment and plan: 76-year-old female admitted to acute care * Right-sided weakness. MRI negative for acute ischemia. Poor balance * Recent [place]. Stable * Hypertension. Stable * Mild anemia. Hematocrit stable * Discussed with patient. Current Visit: Yes (2) Chronic renal insufficiency, stage III (moderate) Status: Chronic Current Visit: Yes (3) Dyslipidemia Status: Chronic Current Visit: Yes (4) GERD (gastroesophageal reflux disease) Status: Chronic Current Visit: Yes (5) History of coronary artery disease Status: Chronic Current Visit: Yes (6) Hypertension Status: Chronic Current Visit: Yes (7) Dyslipidemia Status: Chronic Current Visit: No (8) GERD (gastroesophageal reflux disease) Status: Chronic Current Visit: No Internal Medicine - PN: Subj Interval history: Patient is feeling better today. No chest pain or shortness of breath. She had an MRI done this morning. Exam (Progress Note) - Constitutional Vitals: Period Temp Pulse Resp BP Sys/Marie Pulse Ox Last 24 Hr 98.6 F-98.9 F 66-71 16-20 112-147/55-71 94-99 Exam: Examination: GENERAL: NAD. NECK: Neck is supple. CVS: Regular rate and rhythm. S1 and S2 are normal. RESPIRATORY: Lungs are clear. ABDOMEN: Soft and nontender. EXT: No edema. 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 Balance is poor SKIN: Warm and dry. Results - Labs CBC & BMP: 12/02/16 03:57 12/02/16 03:57 Lab Results: I have reviewed the past 24 hour labs Quality Measures - VTE Contraindication to Pharmacological VTE Prophylaxis: High Risk of Bleeding Contraindication to Mechanical VTE Prophylaxis: Ischemic Vascular Disease
--- NOTE | 2016-12-02 14:28 | Neurology Progress Note ---
Neurology - PN : Subjective Interval history: Patient seems to be doing very well. MRI of the brain is negative. Eating good and she slept well. Exam (Progress Note) - Constitutional Vitals: Period Temp Pulse Resp BP Sys/Marie Pulse Ox Last 24 Hr 98.4 F-98.9 F 66-71 16-20 112-147/55-72 94-99 Exam: GENERAL: Patient is in no acute distress. NECK: Neck is supple. There is no JVD. No carotid bruits present. No thyroid masses. CVS: First and second heart sounds are normal. There is no S3 present. Regular rate and rhythm. RESPIRATORY: Lungs are clear to auscultation without any rales or rhonchi. ABDOMEN: Soft and non-tender. Bowel sounds are present. There is no hepatosplenomegaly. EXT: There is no palpable edema. Peripheral pulses are present. Skin: No rashes Central Nervous system: General: Alert, awake and Oriented x 3 Speech: Fluent Comprehension: Intact and normal Facial expressions: Normal Cranial Nerves: CN1/Olfactory: Normal CN II/ Optic: Normal, Visual Mei unreliable CN III, and : LES & EOMI CN V: Normal & intact CN VII: face is symmetric CNVIII: Normal CN XI/X/XI/XII: Intact and Normal Motor: Bulk and Tone is normal. Strength in the right 3-4/5 Strength in the left 3-4/5 Sensory: Grossly intact for all the modalities of PP, LT and temp sense Reflexes: 1+ and symmetrical Cerebellar function: slow finger to nose and heel to valentino testing. Toes: Equivocal Gait: Not tested at this time Results - Labs CBC & BMP: 12/02/16 03:57 12/02/16 03:57 Assessment and Plan (1) TIA (transient ischemic attack) Status: Acute Assessment and plan: Continue aspirin and Plavix for now. Patient wants to go home however swing bed may be a possibility if family agrees. Sign off please call as needed Current Visit: Yes Quality Measures - VTE Contraindication to Pharmacological VTE Prophylaxis: High Risk of Bleeding Contraindication to Mechanical VTE Prophylaxis: Ischemic Vascular Disease
[2016-12-03 05:47] LABS: Basophils # 0.1 10*3/uL (0.0-0.2); Basophils % 0.5 % (0.0-0.8); Eosinophils # 0.4 10*3/uL (0.0-0.87); Eosinophils % 3.2 % (0.00-10.9); Hematocrit 27.6 VOL% (35.7-47.0); Hemoglobin 9.3 GM/DL (12.0-16.0); Immature Granulocytes % 0.4 %; Immature Granulocytes Absolute 0.05 #; Lymphocytes # 2.9 10*3/uL (1.4-4.0); Lymphocytes % 24.8 % (21.3-54.2); Mean Corpuscular HGB Conc 33.7 GM/DL (32-36); Mean Corpuscular Hemoglobin 32 PG (27-34); Mean Corpuscular Volume 95.5 FL (87-102); Monocytes # 1.3 10*3/uL (0.11-0.8); Monocytes % 11.2 % (1.7-12.7); Neutrophils % 59.9 % (38.7-73.9); Platelet Count 298 T/CUMM (130-400); Red Blood Count 2.89 MC/CUMM (3.8-5.5); Red Cell Distribution Width 13.3 % (9.3-17.3); White Blood Count 11.8 T/CUMM (4-12)
[2016-12-03 06:28] LABS: Calcium 8.9 MG/DL (8.5-10.1); Magnesium 2.1 MG/DL (1.8-2.4); Osmolality,Calculated 282.5 MOS/KG (273-304); Potassium 4.2 MMOL/L (3.5-5.1)
--- NOTE | 2016-12-03 08:01 | Family Practice Progress Note ---
Family Practice - PN: Subj Interval history: Patient states she had a good night. Patient had MRI yesterday that showed no evidence of acute CVA. I will get physical therapy to start ambulating her. And evaluate her for either discharge home or swing bed. She denies any pain or discomfort this morning Exam (Progress Note) - Constitutional Vitals: Period Temp Pulse Resp BP Sys/Marie Pulse Ox Last 24 Hr 97.2 F-98.9 F 71-75 16-20 112-153/60-72 95-98 Exam: Objective well-developed white female no acute distress. She is able give good history. Her speech is clear. Cardiovascular heart rates regular without murmurs or gallops. Respiratory: Lungs clear to auscultation bilaterally. 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 She had symmetrical strength in both lower extremities as well. Results - Labs CBC & BMP: 12/03/16 05:04 12/03/16 05:04 Lab Results: I have reviewed the past 24 hour labs - Diagnostic Findings Procedure: MRI: report reviewed by me (MR brain showed no acute abnormality.) Assessment and Plan (1) TIA (transient ischemic attack) Status: Acute Assessment and plan: 12/03/2016: We will begin ambulation. She will be evaluated for possible swing bed or discharge home. Current Visit: Yes Quality Measures - VTE Contraindication to Pharmacological VTE Prophylaxis: High Risk of Bleeding Contraindication to Mechanical VTE Prophylaxis: Ischemic Vascular Disease
[2016-12-03] MEDS: LOSARTAN 25 MG TABLET PO SCH (10:03)
[2016-12-03] MEDS: THIORIDAZINE 25 MG TABLET PO SCH (10:03)
[2016-12-03] MEDS: CARBIDOPA/LEVODOPA 25-100 MG TABLET PO SCH ×3 (10:03→21:13)
[2016-12-03] MEDS: CLOPIDOGREL 75 MG TABLET PO SCH (10:04)
[2016-12-03] MEDS: ISOSORBIDE MONONITRATE 30 MG TABLET PO SCH (10:04)
[2016-12-03] MEDS: CARVEDILOL 3.125 MG TABLET PO SCH ×2 (10:04→21:13)
[2016-12-03] MEDS: PANTOPRAZOLE 40 MG TABLET PO SCH (10:04)
[2016-12-03] MEDS: MEMANTINE 10 MG TABLET PO SCH ×2 (10:06→21:13)
[2016-12-03] MEDS: ASPIRIN EC 81 MG TABLET PO SCH (10:07)
[2016-12-03] MEDS ORDERED: TUBERCULIN SKIN TEST 0.1 ML SYRINGE INTRADERM ONE (11:00)
--- NOTE | 2016-12-03 11:15 | Case Mgmt Physician Query Form ---
TB Signs and Symptoms Screening ([place]) INSTRUCTIONS: To be completed annually on residents/staff with a significant Tuberculin Skin Test (TST) upon admission/hire or a prior significant TST. To be completed on all staff at hire. Please respond to each listed symptom with an (X) in either the "YES" or "NO" box. Do you currently have any of the following symptoms: YES NO ( ) (x ) A cough If yes, is it: ( ) Productive ( ) Non- productive ( ) (x ) Hemoptysis (spitting up blood) ( ) (x ) Chest pains ( ) (x ) Weight Loss ( ) (x ) Fever ( ) (x ) Night Sweats (x ) ( ) Weakness ( ) (x ) Loss of Appetite ( ) ( x) Difficulty Breathing If you answered YES" to any of the above questions, how long have symptoms been present? Comments: If you have any questions ,please contact me. Thank You FLORIDA Taylor, PEACE OFFICER Email :[email or web address]
[2016-12-03] MEDS: ACETAMINOPHEN 325 MG TABLET PO PRN (19:44)
--- NOTE | 2016-12-04 07:21 | Discharge Summary ---
Hospital Course - Hospital Course Hospital Course: Patient is a 76-year-old white female presents emergency room the day after being discharged from rehab and she still could not walk. She could not function in the home setting was brought back to the emergency room and admitted for further evaluation. Repeat MRI of the brain showed no acute stroke. Patient was admitted by Dr. Lara. Physical therapy was started patient still had difficulty with ambulation. She obviously will have to go to a swing bed and that is being arranged. She lives alone and has to do her activities of daily living on her own. Diagnosis - Discharge Diagnosis (1) TIA (transient ischemic attack) Status: Acute Discharge Plan - Discharge Data Disposition: Swing Bed, Hos Based, [facility] Condition at Discharge: Stable Discharge Diet: advance to your usual diet Activity: resume usual activities as tolerated Hygiene: no restrictions Weight Bearing at Discharge: full weight bearing Driving: no restrictions Contact your physician if you experience:: fever over 101 - Discharge Medications No Action Solifenacin [Vesicare] 5 mg PO QAM Potassium Chloride Packet 20 meq PO DAILY Thioridazine [Mellaril] 25 mg PO QAM Omeprazole [Prilosec] 20 mg PO QAM Estrogens(Conj) Tab [Premarin Tab] 0.45 mg PO QAM Carbidopa/Levodopa 25-100 [Sinemet 25-100] 1 tablet PO TID Memantine [Namenda] 10 mg PO BID Meclizine [Antivert] 25 mg PO TID PRN PRN Reason: Dizziness Atorvastatin [Lipitor] 10 mg PO BEDTIME Magnesium Oxide 400 mg PO BEDTIME Losartan Potassium 100 mg PO QAM Clopidogrel Bisulfate [Clopidogrel] 75 mg PO QAM Furosemide 40 mg PO QAM Aspirin EC Tab 81 mg PO QAM Carvedilol [Coreg] 3.125 mg PO BID #60 tablet Nitroglycerin Sl Tab [Nitrostat] 0.4 mg SL Q5M PRN #1 bottle PRN Reason: Chest Pain Isosorbide Mononitrate [Isosorbide Mononitrate ER] 15 mg PO QAM - Follow Up or Referral - Forms/Instructions Exam - Constitutional Vitals: Period Temp Pulse Resp BP Sys/Marie Pulse Ox Last 24 Hr 97.2 F-98.3 F 70-80 16-20 126-153/56-70 90-100 Exam: Objective well-developed white female no acute distress. She is able give good history. Her speech is clear. Cardiovascular heart rates regular without murmurs or gallops. Respiratory: Lungs clear to auscultation bilaterally. Neuro: Patient had equal fine wire drawer in both upper extremities she had normal finger to nose in both upper extremities. She had symmetrical strength in both lower extremities as well. Discharge Results Procedures and tests throughout hospitalization: Pending Orders 11/30/16 13:14 Blood Culture Routine Labs on day of discharge: Preliminary micro results at discharge 11/30/16 13:14 Blood Culture - Preliminary Blood No growth at 3 days 11/30/16 13:14 Blood Culture - Preliminary Blood Gram Positive Cocci DS: Provider Date of admission: 11/30/16 12:38 Primary care physician: Yann Groves MD Attending physician on admission: Klaudia Chaudhry MD Consults: 11/30/16 12:39 Consult to Case Mgmt/Social Srvs [CONS] Routine Reason for Case Mgmt/Social Srvs: Discharge Planning Swingbed/SNF/Correction 11/30/16 13:00 Consult to Physician [CONS] Routine Comment: Consulting Provider: Cardiology - [facility] Person Notified: Barbara RODRIGUEZ NP ([facility]) Date Notified: 11/30/16 Time Notified: 14:27 Consult Notification Comment: Re-notified 12/03 @ 7:40 a.m spoke with Sydney. 11/30/16 13:01 Consult to Physician [CONS] Routine Comment: new onset rt sided weakness Consulting Provider: Sterling Watson Person Notified: DR. WATSON Date Notified: 11/30/16 Time Notified: 14:27 Consult Notification Comment: NOTIFIED WHILE ON FLOOR [place] office notified 12/03 8:30 a.m Spoke with Leah. Echo Leong 11/30/16 16:10 Consult to Physical Therapy [CONS] Routine Reason for Physical Therapy: Evaluate and Treat 12/01/16 09:31 Consult to Occupational Therapy [CONS] Routine Reason for Occupational Therapy: Evaluate and Treat 12/03/16 08:01 Consult to Physical Therapy [CONS] Routine Reason for Physical Therapy: Gait Training Ambulation 12/03/16 08:02 Consult to Case Mgmt/Social Srvs [CONS] Routine Reason for Case Mgmt/Social Srvs: Swingbed/SNF/Correction Discharging clinician: Yann Groves MD Expected date of discharge: 12/04/16
[2016-12-04 08:19] VITALS: BP 153/58
[2016-12-04] MEDS: CARVEDILOL 3.125 MG TABLET PO SCH (09:38)
[2016-12-04] MEDS: CARBIDOPA/LEVODOPA 25-100 MG TABLET PO SCH (09:38)
[2016-12-04] MEDS: THIORIDAZINE 25 MG TABLET PO SCH (09:38)
[2016-12-04] MEDS: PANTOPRAZOLE 40 MG TABLET PO SCH (09:39)
[2016-12-04] MEDS: ASPIRIN EC 81 MG TABLET PO SCH (09:39)
[2016-12-04] MEDS: ISOSORBIDE MONONITRATE 30 MG TABLET PO SCH (09:39)
[2016-12-04] MEDS: CLOPIDOGREL 75 MG TABLET PO SCH (09:40)
[2016-12-04] MEDS: LOSARTAN 25 MG TABLET PO SCH (09:40)
[2016-12-04] MEDS: MEMANTINE 10 MG TABLET PO SCH (09:41)
== END 2016-12-04 12:02 | disposition swing bed (61) | DRG 69 ==
LOC: N.TELEN 12:31
PROVIDERS: ADMIT Family Medicine; ATTEND Family Medicine

== ENCOUNTER 2017-05-08 06:57 | Observation (INO) ==
[2017-05-08] MEDS ORDERED: KETOROLAC 30 MG/1 ML VIAL IV STA (07:36)
[2017-05-08] MEDS ORDERED: ASPIRIN 325 MG TABLET PO STA (07:36)
[2017-05-08] MEDS ORDERED: KETOROLAC 30 MG/1 ML VIAL ONE (07:52)
[2017-05-08] MEDS ORDERED: ASPIRIN 325 MG TABLET ONE (07:52)
[2017-05-08 07:54] LABS: Basophils % 0.2 % (0.0-0.8); Eosinophils # 0.2 10*3/uL (0.0-0.87); Eosinophils % 1.3 % (0.00-10.9); Hematocrit 33.5 VOL% (35.7-47.0); Hemoglobin 11.1 GM/DL (12.0-16.0); Immature Granulocytes % 0.4 %; Immature Granulocytes Absolute 0.06 #; Lymphocytes # 2.2 10*3/uL (1.4-4.0); Lymphocytes % 16.5 % (21.3-54.2); Mean Corpuscular HGB Conc 33.1 GM/DL (32-36); Mean Corpuscular Hemoglobin 32 PG (27-34); Mean Corpuscular Volume 95.7 FL (87-102); Mean Platelet Volume 10.5 FL (9.6-12.0); Monocytes # 1.7 10*3/uL (0.11-0.8); Monocytes % 12.4 % (1.7-12.7); Neutrophils # 9.2 10*3/uL (1.4-7.4); Neutrophils % 69.2 % (38.7-73.9); Platelet Count 186 T/CUMM (130-400); Red Cell Distribution Width 14.6 % (9.3-17.3); White Blood Count 13.4 T/CUMM (4-12)
[2017-05-08 07:56] LABS: PT Patient Result 10.2 SECS; Partial Thromboplastin Time 25.2 SECS (0-40)
[2017-05-08 08:08] LABS: Alanine Aminotransferase 9 U/L (13-56); Albumin 3.2 G/DL (3.4-5.0); Alkaline Phosphatase 50 U/L (45-117); Aspartate Amino Transferase 10 U/L (0-37); Bilirubin,Total < 0.39 MG/DL (0.2-1.0); Calcium 9.3 MG/DL (8.5-10.1); Total Protein 6.9 G/DL (6.4-8.3)
[2017-05-08 08:09] LABS: Blood Urea Nitrogen 24 MG/DL (7-18); Glucose 137 MG/DL (74-106); Potassium 4.1 MMOL/L (3.5-5.1); Sodium 143 MMOL/L (136-145)
[2017-05-08 08:25] LABS: Apearance,Urine CLEAR (Clear); Bilirubin,Urine Negative (Negative); Blood, Urine Negative (Negative); Glucose,Urine (UA) Negative (Negative); Hyaline Casts,Urine 1 /LPF (0-3); Ketones,Urine Negative (Negative); Mucus,Urine Occasional /LPF (Occasional); Nitrite,Urine Negative (Negative); Protein,Urine Negative; RBC,Urine <1 /HPF (0-4); Squamous Epithelial Cell,Urine Occasional /HPF (0-10); Urine Color Yellow (Yellow); Urine Specific Gravity 1.015 (1.001-1.035); Urine Urobilinogen < 2.0 EU/DL (0.2-1.0); WBC,Urine 1 /HPF (0-6)
[2017-05-08] MEDS ORDERED: ENOXAPARIN 60 MG/0.6 ML SYRINGE SUBCUT STA (08:25)
[2017-05-08] MEDS ORDERED: ENOXAPARIN 60 MG/0.6 ML SYRINGE ONE (08:27)
[2017-05-08] MEDS ORDERED: ONDANSETRON 4 MG/2 ML VIAL IV PRN (09:40)
[2017-05-08] MEDS ORDERED: ACETAMINOPHEN 325 MG TABLET PO PRN (09:40)
[2017-05-08] MEDS ORDERED: SODIUM CHLORIDE 0.9% 1,000 ML IV SCH (09:40)
[2017-05-08] MEDS ORDERED: INFLUENZA VIRUS VACCINE 0.5 ML SYRINGE IM ONE (10:12)
[2017-05-08] MEDS: DOCUSATE SODIUM 100 MG CAPSULE PO SCH ×2 (10:58→21:26)
[2017-05-08] MEDS: PANTOPRAZOLE 40 MG TABLET PO SCH (10:58)
[2017-05-08] MEDS ORDERED: NITROGLYCERIN SL 0.4 MG TABLET SL PRN (12:34)
[2017-05-08] MEDS ORDERED: ONDANSETRON 4 MG TABLET PO PRN (12:34)
[2017-05-08] MEDS: NITROGLYCERIN 2% OINT 1 INCH/GM PACK TOP SCH ×2 (12:45→18:54)
[2017-05-08] MEDS: CARBIDOPA/LEVODOPA 25-100 MG TABLET PO SCH ×2 (15:08→21:26)
[2017-05-08] MEDS ORDERED: ALBUTEROL/IPRATROPIUM 3 ML NEB RESP TX PRN (16:01)
[2017-05-08] MEDS ORDERED: HYDROmorphone 2 MG/1 ML VIAL IV PRN (16:03)
[2017-05-08] MEDS ORDERED: DIAZEPAM 5 MG TABLET ONE (16:21)
[2017-05-08] MEDS ORDERED: diphenhydrAMINE CAP 25 MG CAPSULE PO ONE (16:21)
[2017-05-08] MEDS ORDERED: POTASSIUM CHLORIDE RIDER 10 MEQ in PREMIX 1 EACH IV PRN (16:21)
[2017-05-08] MEDS ORDERED: MAGNESIUM SULF RIDER 2 GM in PREMIX 1 EACH IV PRN (16:21)
[2017-05-08] MEDS ORDERED: DIAZEPAM 5 MG TABLET PO ONE (16:21)
[2017-05-08] MEDS ORDERED: MEPERIDINE 25 MG/1 ML VIAL ONE (16:33)
[2017-05-08] MEDS ORDERED: MIDAZOLAM 2 MG/2 ML VIAL ONE (16:33)
[2017-05-08] MEDS ORDERED: LIDOCAINE 1% 20 ML VIAL ONE (16:33)
[2017-05-08] MEDS: GABAPENTIN 100 MG CAPSULE PO SCH ×2 (18:54→21:26)
[2017-05-08] MEDS: ACETAMINOPHEN 325 MG TABLET PO SCH ×2 (18:54→21:26)
[2017-05-08] MEDS: traMADol 50 MG TABLET PO SCH ×2 (18:54→21:26)
[2017-05-08 19:20] LABS: Apearance,Urine Slightly Hazy (Clear); Bilirubin,Urine Negative (Negative); Blood, Urine Negative (Negative); Glucose,Urine (UA) Negative (Negative); Ketones,Urine Negative (Negative); Mucus,Urine Occasional /LPF (Occasional); Nitrite,Urine Negative (Negative); Protein,Urine Negative; RBC,Urine <1 /HPF (0-4); Squamous Epithelial Cell,Urine Occasional /HPF (0-10); Urine Color Yellow (Yellow); Urine Specific Gravity 1.029 (1.001-1.035); Urine Urobilinogen < 2.0 EU/DL (0.2-1.0); WBC,Urine <1 /HPF (0-6)
[2017-05-08] MEDS: ATORVASTATIN 10 MG TABLET PO SCH (21:26)
[2017-05-08] MEDS: MEMANTINE 10 MG TABLET PO SCH (21:26)
[2017-05-08] MEDS: MAGNESIUM OXIDE 400 MG TABLET PO SCH (21:26)
[2017-05-08] MEDS: CARVEDILOL 3.125 MG TABLET PO SCH (21:26)
[2017-05-09] MEDS: NITROGLYCERIN 2% OINT 1 INCH/GM PACK TOP SCH ×3 (02:56→12:28)
[2017-05-09 05:07] LABS: Basophils % 0.3 % (0.0-0.8); Eosinophils # 0.2 10*3/uL (0.0-0.87); Hematocrit 28.6 VOL% (35.7-47.0); Hemoglobin 9.9 GM/DL (12.0-16.0); Immature Granulocytes % 0.5 %; Immature Granulocytes Absolute 0.05 #; Lymphocytes # 2.4 10*3/uL (1.4-4.0); Lymphocytes % 23.3 % (21.3-54.2); Mean Corpuscular HGB Conc 34.6 GM/DL (32-36); Mean Corpuscular Hemoglobin 33 PG (27-34); Mean Corpuscular Volume 94.4 FL (87-102); Monocytes # 1.2 10*3/uL (0.11-0.8); Monocytes % 11.5 % (1.7-12.7); Neutrophils # 6.3 10*3/uL (1.4-7.4); Neutrophils % 62.4 % (38.7-73.9); Platelet Count 158 T/CUMM (130-400); Red Blood Count 3.03 MC/CUMM (3.8-5.5); Red Cell Distribution Width 14.8 % (9.3-17.3); White Blood Count 10.1 T/CUMM (4-12)
[2017-05-09 05:41] LABS: Risk Ratio 1.47; VLDL CHOLESTEROL 24.8 MG/DL
[2017-05-09 05:50] LABS: Calcium 8.3 MG/DL (8.5-10.1); Magnesium 1.7 MG/DL (1.8-2.4); Potassium 3.8 MMOL/L (3.5-5.1)
[2017-05-09 05:55] LABS: Troponin I Only 0.086 NG/ML (0.00-0.045)
[2017-05-09] MEDS ORDERED: SODIUM CHLORIDE 0.9% 250 ML IV ONE (07:10)
[2017-05-09] MEDS ORDERED: ISOSORBIDE MONONITRATE 30 MG TABLET PO SCH ×2 (09:00→16:00)
[2017-05-09] MEDS ORDERED: NON-FORMULARY MEDICATION (Mirabegron [Myrbetriq] 25 MG) PO SCH (09:00)
[2017-05-09] MEDS: CLOPIDOGREL 75 MG TABLET PO SCH (12:22)
[2017-05-09] MEDS: GABAPENTIN 100 MG CAPSULE PO SCH ×3 (12:23→21:16)
[2017-05-09] MEDS: ACETAMINOPHEN 325 MG TABLET PO SCH ×2 (12:23→21:18)
[2017-05-09] MEDS: traMADol 50 MG TABLET PO SCH ×2 (12:23→21:18)
[2017-05-09] MEDS: CARBIDOPA/LEVODOPA 25-100 MG TABLET PO SCH ×3 (12:23→21:16)
[2017-05-09] MEDS: ASPIRIN CHEW 81 MG TABLET PO SCH (12:23)
[2017-05-09] MEDS: DOCUSATE SODIUM 100 MG CAPSULE PO SCH ×2 (12:24→21:16)
[2017-05-09] MEDS: PANTOPRAZOLE 40 MG TABLET PO SCH (12:24)
[2017-05-09] MEDS: POTASSIUM CHLORIDE 20 MEQ PACK PO SCH (12:24)
[2017-05-09] MEDS: MEMANTINE 10 MG TABLET PO SCH ×2 (12:27→21:16)
[2017-05-09] MEDS: FUROSEMIDE 20 MG TABLET PO SCH (12:27)
[2017-05-09] MEDS: LOSARTAN 50 MG TABLET PO SCH (12:27)
[2017-05-09] MEDS: THIORIDAZINE 25 MG TABLET PO SCH (12:27)
[2017-05-09] MEDS: ESTROGENS (CONJ) 0.45 MG TABLET PO SCH (12:28)
[2017-05-09] MEDS: CARVEDILOL 3.125 MG TABLET PO SCH (12:31)
[2017-05-09] MEDS: ATORVASTATIN 10 MG TABLET PO SCH (21:17)
[2017-05-09] MEDS: MAGNESIUM OXIDE 400 MG TABLET PO SCH (21:18)
[2017-05-09] MEDS: CARVEDILOL 6.25 MG TABLET PO SCH (21:18)
[2017-05-10 04:52] LABS: Basophils % 0.4 % (0.0-0.8); Eosinophils # 0.3 10*3/uL (0.0-0.87); Eosinophils % 2.8 % (0.00-10.9); Hematocrit 28.5 VOL% (35.7-47.0); Hemoglobin 9.5 GM/DL (12.0-16.0); Immature Granulocytes % 0.4 %; Immature Granulocytes Absolute 0.04 #; Lymphocytes # 2.9 10*3/uL (1.4-4.0); Lymphocytes % 25.7 % (21.3-54.2); Mean Corpuscular HGB Conc 33.3 GM/DL (32-36); Mean Corpuscular Hemoglobin 32 PG (27-34); Mean Corpuscular Volume 95.6 FL (87-102); Mean Platelet Volume 10.5 FL (9.6-12.0); Neutrophils # 6.9 10*3/uL (1.4-7.4); Neutrophils % 61.7 % (38.7-73.9); Platelet Count 166 T/CUMM (130-400); Red Blood Count 2.98 MC/CUMM (3.8-5.5); Red Cell Distribution Width 14.8 % (9.3-17.3); White Blood Count 11.1 T/CUMM (4-12)
[2017-05-10 05:12] LABS: Calcium 8.2 MG/DL (8.5-10.1); Magnesium 2.6 MG/DL (1.8-2.4); Osmolality,Calculated 279.5 MOS/KG (273-304); Potassium 3.8 MMOL/L (3.5-5.1)
[2017-05-10] MEDS ORDERED: SODIUM CHLORIDE 0.9% 1,000 ML IV SCH (06:00)
[2017-05-10 08:45] VITALS: BP 136/74
[2017-05-10] MEDS: CLOPIDOGREL 75 MG TABLET PO SCH (09:41)
[2017-05-10] MEDS: PANTOPRAZOLE 40 MG TABLET PO SCH (09:41)
[2017-05-10] MEDS: CARBIDOPA/LEVODOPA 25-100 MG TABLET PO SCH (09:41)
[2017-05-10] MEDS: POTASSIUM CHLORIDE 20 MEQ PACK PO SCH (09:41)
[2017-05-10] MEDS: ESTROGENS (CONJ) 0.45 MG TABLET PO SCH (09:41)
[2017-05-10] MEDS: FUROSEMIDE 20 MG TABLET PO SCH (09:42)
[2017-05-10] MEDS: THIORIDAZINE 25 MG TABLET PO SCH (09:42)
[2017-05-10] MEDS: ASPIRIN CHEW 81 MG TABLET PO SCH (09:42)
[2017-05-10] MEDS: MEMANTINE 10 MG TABLET PO SCH (09:42)
[2017-05-10] MEDS: GABAPENTIN 100 MG CAPSULE PO SCH (09:43)
[2017-05-10] MEDS: LOSARTAN 50 MG TABLET PO SCH (09:43)
[2017-05-10] MEDS: CARVEDILOL 6.25 MG TABLET PO SCH (09:43)
[2017-05-10] MEDS: ACETAMINOPHEN 325 MG TABLET PO SCH (09:43)
[2017-05-10] MEDS: traMADol 50 MG TABLET PO SCH (09:44)
[2017-05-10] MEDS: DOCUSATE SODIUM 100 MG CAPSULE PO SCH (09:44)
== END 2017-05-10 10:57 | disposition home health service (06) ==
LOC: N.EDINP 06:57 → N.ED 06:57 → N.EDINP 09:24 → N.TELEN 09:29
PROVIDERS: ADMIT Family Medicine; ATTEND Family Medicine
PROC: CLCCHCL (ICD-10-PCS; 2017-05-08 17:15)

== ENCOUNTER 2017-12-31 16:29 | Inpatient (IN) ==
[2017-12-31 17:13] LABS: Basophils % 0.3 % (0.0-0.8); Eosinophils # 0.1 10*3/uL (0.0-0.87); Eosinophils % 0.8 % (0.00-10.9); Hematocrit 33.6 VOL% (35.7-47.0); Hemoglobin 11.5 GM/DL (12.0-16.0); Immature Granulocytes % 0.3 %; Immature Granulocytes Absolute 0.04 #; Lymphocytes # 2.2 10*3/uL (1.4-4.0); Lymphocytes % 18.7 % (21.3-54.2); Mean Corpuscular HGB Conc 34.2 GM/DL (32-36); Mean Corpuscular Hemoglobin 34 PG (27-34); Mean Corpuscular Volume 100.3 FL (87-102); Mean Platelet Volume 10.6 FL (9.6-12.0); Monocytes % 8.2 % (1.7-12.7); Neutrophils # 8.4 10*3/uL (1.4-7.4); Neutrophils % 71.7 % (38.7-73.9); Platelet Count 168 T/CUMM (130-400); Red Blood Count 3.35 MC/CUMM (3.8-5.5); Red Cell Distribution Width 12.8 % (9.3-17.3); White Blood Count 11.8 T/CUMM (4-12)
[2017-12-31 17:45] LABS: Calcium 8.7 MG/DL (8.5-10.1); Osmolality,Calculated 283.4 MOS/KG (273-304); Potassium 4.4 MMOL/L (3.5-5.1)
[2017-12-31] MEDS ORDERED: ACETAMINOPHEN 500 MG TABLET ONE (18:33)
[2017-12-31] MEDS ORDERED: ACETAMINOPHEN 500 MG TABLET PO STA (18:39)
[2017-12-31] MEDS ORDERED: MECLIZINE 25 MG TABLET PO PRN (20:15)
[2017-12-31] MEDS ORDERED: ONDANSETRON 4 MG TABLET PO PRN (20:15)
[2017-12-31] MEDS ORDERED: ONDANSETRON 4 MG/2 ML VIAL IV PRN (20:15)
[2017-12-31] MEDS ORDERED: NITROGLYCERIN SL 0.4 MG TABLET SL PRN (20:15)
[2017-12-31] MEDS: CARVEDILOL 3.125 MG TABLET PO SCH (21:53)
[2017-12-31] MEDS: MEMANTINE 10 MG TABLET PO SCH (21:53)
[2017-12-31] MEDS: ATORVASTATIN 10 MG TABLET PO SCH (21:53)
[2017-12-31] MEDS: MAGNESIUM OXIDE 400 MG TABLET PO SCH (21:53)
[2017-12-31] MEDS: CARBIDOPA/LEVODOPA 25-100 MG TABLET PO SCH (21:53)
[2017-12-31] MEDS: DOCUSATE SODIUM 100 MG CAPSULE PO SCH (21:54)
[2017-12-31] MEDS: ACETAMINOPHEN 325 MG TABLET PO PRN (22:04)
[2017-12-31 23:03] LABS: Troponin I Only 0.128 NG/ML (0.00-0.045)
[2018-01-01 02:20] LABS: Basophils % 0.4 % (0.0-0.8); Eosinophils # 0.1 10*3/uL (0.0-0.87); Eosinophils % 1.3 % (0.00-10.9); Hematocrit 31.7 VOL% (35.7-47.0); Hemoglobin 10.8 GM/DL (12.0-16.0); Immature Granulocytes % 0.3 %; Immature Granulocytes Absolute 0.03 #; Lymphocytes # 3.4 10*3/uL (1.4-4.0); Lymphocytes % 32.7 % (21.3-54.2); Mean Corpuscular HGB Conc 34.1 GM/DL (32-36); Mean Corpuscular Hemoglobin 34 PG (27-34); Mean Corpuscular Volume 99.4 FL (87-102); Mean Platelet Volume 10.8 FL (9.6-12.0); Monocytes # 1.2 10*3/uL (0.11-0.8); Monocytes % 11.3 % (1.7-12.7); Neutrophils # 5.7 10*3/uL (1.4-7.4); Platelet Count 157 T/CUMM (130-400); Red Blood Count 3.19 MC/CUMM (3.8-5.5); Red Cell Distribution Width 12.8 % (9.3-17.3); White Blood Count 10.5 T/CUMM (4-12)
[2018-01-01 02:33] LABS: Alanine Aminotransferase 12 U/L (13-56); Albumin 3.1 G/DL (3.4-5.0); Alkaline Phosphatase 39 U/L (45-117); Aspartate Amino Transferase 14 U/L (0-37); Bilirubin,Total < 0.39 MG/DL (0.2-1.0); Blood Urea Nitrogen 23 MG/DL (7-18); Calcium 8.8 MG/DL (8.5-10.1); Glucose 104 MG/DL (74-106); Osmolality,Calculated 286.1 MOS/KG (273-304); Potassium 4.3 MMOL/L (3.5-5.1); Sodium 142 MMOL/L (136-145); Total Protein 6.8 G/DL (6.4-8.3)
[2018-01-01 02:37] LABS: Troponin I Only 0.114 NG/ML (0.00-0.045)
[2018-01-01] MEDS: SODIUM CHLORIDE 0.9% 1,000 ML IV SCH ×2 (03:47→11:19)
[2018-01-01 06:40] LABS: Troponin I Only 0.113 NG/ML (0.00-0.045)
[2018-01-01] MEDS ORDERED: LOSARTAN 50 MG TABLET PO SCH (09:00)
[2018-01-01] MEDS ORDERED: NON-FORMULARY MEDICATION (Mirabegron [Myrbetriq] 50 MG) PO SCH (09:00)
[2018-01-01] MEDS ORDERED: PANTOPRAZOLE 40 MG TABLET PO SCH (09:00)
[2018-01-01] MEDS: DOCUSATE SODIUM 100 MG CAPSULE PO SCH ×2 (11:11→21:15)
[2018-01-01] MEDS: POTASSIUM CHLORIDE 20 MEQ TABLET PO SCH (11:11)
[2018-01-01] MEDS: MEMANTINE 10 MG TABLET PO SCH ×2 (11:11→21:15)
[2018-01-01] MEDS: CARBIDOPA/LEVODOPA 25-100 MG TABLET PO SCH ×3 (11:12→21:15)
[2018-01-01] MEDS: ISOSORBIDE MONONITRATE 30 MG TABLET PO SCH (11:12)
[2018-01-01] MEDS: PANTOPRAZOLE 40 MG TABLET PO SCH (11:12)
[2018-01-01] MEDS: CARVEDILOL 3.125 MG TABLET PO SCH (11:12)
[2018-01-01] MEDS: FUROSEMIDE 20 MG TABLET PO SCH (11:13)
[2018-01-01] MEDS: ASPIRIN EC 81 MG TABLET PO SCH (11:13)
[2018-01-01] MEDS: THIORIDAZINE 25 MG TABLET PO SCH (11:19)
[2018-01-01] MEDS: ESTROGENS (CONJ) 0.45 MG TABLET PO SCH (11:19)
[2018-01-01] MEDS: ACETAMINOPHEN 325 MG TABLET PO PRN (17:43)
[2018-01-01] MEDS: ATORVASTATIN 10 MG TABLET PO SCH (21:15)
[2018-01-01] MEDS: MAGNESIUM OXIDE 400 MG TABLET PO SCH (21:15)
[2018-01-01] MEDS: CARVEDILOL 6.25 MG TABLET PO SCH (21:15)
[2018-01-02] MEDS ORDERED: LOSARTAN 50 MG TABLET PO SCH (09:00)
[2018-01-02] MEDS: ISOSORBIDE MONONITRATE 30 MG TABLET PO SCH (09:09)
[2018-01-02] MEDS: PANTOPRAZOLE 40 MG TABLET PO SCH (09:11)
[2018-01-02] MEDS: MEMANTINE 10 MG TABLET PO SCH ×2 (09:11→21:01)
[2018-01-02] MEDS: ASPIRIN EC 81 MG TABLET PO SCH (09:11)
[2018-01-02] MEDS: CARBIDOPA/LEVODOPA 25-100 MG TABLET PO SCH ×3 (09:11→21:01)
[2018-01-02] MEDS: FUROSEMIDE 20 MG TABLET PO SCH (09:11)
[2018-01-02] MEDS: DOCUSATE SODIUM 100 MG CAPSULE PO SCH ×2 (09:11→20:54)
[2018-01-02] MEDS: THIORIDAZINE 25 MG TABLET PO SCH (09:11)
[2018-01-02] MEDS: amLODIPine 10 MG TABLET PO SCH (09:15)
[2018-01-02] MEDS: POTASSIUM CHLORIDE 20 MEQ TABLET PO SCH (09:15)
[2018-01-02] MEDS: CARVEDILOL 6.25 MG TABLET PO SCH ×2 (09:18→20:54)
[2018-01-02] MEDS ORDERED: TUBERCULIN SKIN TEST 0.1 ML SYRINGE INTRADERM ONE (12:35)
[2018-01-02] MEDS: SODIUM CHLORIDE 0.9% 1,000 ML IV SCH (20:16)
[2018-01-02] MEDS: ESTROGENS (CONJ) 0.45 MG TABLET PO SCH (20:17)
[2018-01-02] MEDS: ATORVASTATIN 10 MG TABLET PO SCH (21:01)
[2018-01-02] MEDS: MAGNESIUM OXIDE 400 MG TABLET PO SCH (21:01)
[2018-01-03 04:16] LABS: Basophils % 0.5 % (0.0-0.8); Eosinophils # 0.2 10*3/uL (0.0-0.87); Eosinophils % 2.5 % (0.00-10.9); Hematocrit 30.2 VOL% (35.7-47.0); Hemoglobin 10.3 GM/DL (12.0-16.0); Immature Granulocytes % 0.2 %; Immature Granulocytes Absolute 0.02 #; Lymphocytes # 3.4 10*3/uL (1.4-4.0); Lymphocytes % 38.8 % (21.3-54.2); Mean Corpuscular HGB Conc 34.1 GM/DL (32-36); Mean Corpuscular Hemoglobin 34 PG (27-34); Mean Platelet Volume 11.3 FL (9.6-12.0); Monocytes # 0.9 10*3/uL (0.11-0.8); Monocytes % 10.7 % (1.7-12.7); Neutrophils # 4.2 10*3/uL (1.4-7.4); Neutrophils % 47.3 % (38.7-73.9); Platelet Count 156 T/CUMM (130-400); Red Blood Count 3.02 MC/CUMM (3.8-5.5); Red Cell Distribution Width 12.7 % (9.3-17.3); White Blood Count 8.8 T/CUMM (4-12)
[2018-01-03 04:54] LABS: Calcium 8.7 MG/DL (8.5-10.1); Osmolality,Calculated 286.1 MOS/KG (273-304)
[2018-01-03] MEDS: SODIUM CHLORIDE 0.9% 1,000 ML IV SCH (06:19)
[2018-01-03 07:17] LABS: Apearance,Urine CLEAR (Clear); Bilirubin,Urine Negative (Negative); Blood, Urine Negative (Negative); Glucose,Urine (UA) Negative (Negative); Ketones,Urine Negative (Negative); Nitrite,Urine Negative (Negative); Protein,Urine Negative; RBC,Urine <1 /HPF (0-4); Squamous Epithelial Cell,Urine Occasional /HPF (0-10); Urine Color Straw (Yellow); Urine Specific Gravity 1.009 (1.001-1.035); Urine Urobilinogen < 2.0 EU/DL (0.2-1.0); WBC,Urine <1 /HPF (0-6)
[2018-01-03] MEDS ORDERED: LOSARTAN 50 MG TABLET PO SCH (07:29)
[2018-01-03] MEDS: ASPIRIN EC 81 MG TABLET PO SCH (10:05)
[2018-01-03] MEDS: DOCUSATE SODIUM 100 MG CAPSULE PO SCH (10:05)
[2018-01-03] MEDS: CARVEDILOL 6.25 MG TABLET PO SCH (10:05)
[2018-01-03] MEDS: POTASSIUM CHLORIDE 20 MEQ TABLET PO SCH (10:07)
[2018-01-03] MEDS: ISOSORBIDE MONONITRATE 30 MG TABLET PO SCH (10:07)
[2018-01-03] MEDS: FUROSEMIDE 20 MG TABLET PO SCH (10:08)
[2018-01-03] MEDS: amLODIPine 10 MG TABLET PO SCH (10:09)
[2018-01-03] MEDS: MEMANTINE 10 MG TABLET PO SCH (10:09)
[2018-01-03] MEDS: THIORIDAZINE 25 MG TABLET PO SCH (10:09)
[2018-01-03] MEDS: PANTOPRAZOLE 40 MG TABLET PO SCH (10:10)
[2018-01-03] MEDS: CARBIDOPA/LEVODOPA 25-100 MG TABLET PO SCH (10:10)
[2018-01-03] MEDS: ESTROGENS (CONJ) 0.45 MG TABLET PO SCH (10:11)
[2018-01-03 11:29] VITALS: BP 201/92
[2018-01-03] MEDS ORDERED: amLODIPine 5 MG TABLET PO ONE (11:58)
== END 2018-01-03 13:05 | disposition swing bed (61) | DRG 90 ==
LOC: EDUNIT# → EDBD → N.ED 16:29 → N.EDINP 18:41 → N.TELES 20:54
PROVIDERS: ADMIT Family Medicine; ATTEND Family Medicine

== ENCOUNTER 2018-07-26 16:36 | Inpatient (IN) ==
[2018-07-26 17:27] LABS: Basophils # 0.1 10*3/uL (0.0-0.2); Basophils % 0.6 % (0.0-0.8); Eosinophils # 0.1 10*3/uL (0.0-0.87); Eosinophils % 1.2 % (0.00-10.9); Hematocrit 33.8 VOL% (35.7-47.0); Immature Granulocytes % 0.4 %; Immature Granulocytes Absolute 0.04 #; Lymphocytes # 2.1 10*3/uL (1.4-4.0); Lymphocytes % 21.6 % (21.3-54.2); Mean Corpuscular HGB Conc 32.5 GM/DL (32-36); Mean Corpuscular Hemoglobin 34 PG (27-34); Mean Corpuscular Volume 105.6 FL (87-102); Mean Platelet Volume 10.8 FL (9.6-12.0); Monocytes # 0.9 10*3/uL (0.11-0.8); Neutrophils # 6.6 10*3/uL (1.4-7.4); Neutrophils % 67.2 % (38.7-73.9); Platelet Count 157 T/CUMM (130-400); Red Cell Distribution Width 12.6 % (9.3-17.3); White Blood Count 9.9 T/CUMM (4-12)
[2018-07-26] MEDS ORDERED: ONDANSETRON 4 MG/2 ML VIAL IV PRN (17:47)
[2018-07-26] MEDS ORDERED: BISACODYL 5 MG TABLET PO PRN (17:47)
[2018-07-26] MEDS ORDERED: DEXTROSE 50% 25 GM/50 ML SYRINGE IV PRN (17:47)
[2018-07-26] MEDS ORDERED: GLUCAGON 1 MG VIAL IM PRN (17:47)
[2018-07-26 17:48] LABS: Calcium 9.1 MG/DL (8.5-10.1); Osmolality,Calculated 286.4 MOS/KG (273-304); Potassium 5.3 MMOL/L (3.5-5.1)
[2018-07-26 18:16] LABS: Apearance,Urine CLEAR (Clear); Bilirubin,Urine Negative (Negative); Blood, Urine Negative (Negative); Glucose,Urine (UA) Negative (Negative); Hyaline Casts,Urine 20 /LPF (0-3); Ketones,Urine Negative (Negative); Mucus,Urine Occasional /LPF (Occasional); Nitrite,Urine Negative (Negative); Protein,Urine Negative; RBC,Urine <1 /HPF (0-4); Squamous Epithelial Cell,Urine Occasional /HPF (0-10); Urine Color Amber (Yellow); Urine Specific Gravity 1.019 (1.001-1.035); Urine Urobilinogen < 2.0 EU/DL (0.2-1.0); WBC,Urine <1 /HPF (0-6)
[2018-07-26 19:01] LABS: Albumin 3.4 G/DL (3.4-5.0); Bilirubin,Direct 0.16 MG/DL (0.0-0.20); Bilirubin,Indirect 0.2 MG/DL (0.0-1.0); Bilirubin,Total 0.4 MG/DL (0.2-1.0); CKMB % 1.4 %; Total Protein 6.6 G/DL (6.4-8.3)
[2018-07-26 19:14] LABS: Troponin I 0.116 NG/ML (0.00-0.045)
[2018-07-26] MEDS ORDERED: INFLUENZA VIRUS VACCINE 0.5 ML SYRINGE IM ONE (19:59)
[2018-07-26] MEDS: SODIUM CHLORIDE 0.45% 1,000 ML IV SCH (20:15)
[2018-07-26] MEDS ORDERED: MECLIZINE 25 MG TABLET PO PRN (20:39)
[2018-07-26] MEDS ORDERED: ACETAMINOPHEN 325 MG TABLET PO PRN (20:39)
[2018-07-26 20:56] LABS: CKMB % 1.6 %; Troponin I 0.097 NG/ML (0.00-0.045)
[2018-07-26] MEDS ORDERED: ONDANSETRON 4 MG TABLET PO PRN (20:57)
[2018-07-26] MEDS ORDERED: NITROGLYCERIN SL 0.4 MG TABLET SL PRN (20:57)
[2018-07-26] MEDS: MAGNESIUM OXIDE 400 MG TABLET PO SCH (21:27)
[2018-07-26] MEDS: MEMANTINE 10 MG TABLET PO SCH (21:27)
[2018-07-26] MEDS: CARBIDOPA/LEVODOPA 25-100 MG TABLET PO SCH (21:28)
[2018-07-27 00:50] LABS: CKMB % 1.5 %
[2018-07-27 01:01] LABS: Troponin I 0.094 NG/ML (0.00-0.045)
[2018-07-27 03:00] LABS: Basophils % 0.4 % (0.0-0.8); Eosinophils # 0.2 10*3/uL (0.0-0.87); Eosinophils % 1.9 % (0.00-10.9); Hematocrit 30.8 VOL% (35.7-47.0); Immature Granulocytes % 0.4 %; Immature Granulocytes Absolute 0.04 #; Lymphocytes # 3.1 10*3/uL (1.4-4.0); Lymphocytes % 28.7 % (21.3-54.2); Mean Corpuscular HGB Conc 32.5 GM/DL (32-36); Mean Corpuscular Hemoglobin 35 PG (27-34); Mean Corpuscular Volume 106.6 FL (87-102); Mean Platelet Volume 10.9 FL (9.6-12.0); Monocytes # 1.1 10*3/uL (0.11-0.8); Monocytes % 9.6 % (1.7-12.7); Neutrophils # 6.4 10*3/uL (1.4-7.4); Platelet Count 138 T/CUMM (130-400); Red Blood Count 2.89 MC/CUMM (3.8-5.5); Red Cell Distribution Width 12.6 % (9.3-17.3); White Blood Count 10.9 T/CUMM (4-12)
[2018-07-27 03:18] LABS: Calcium 8.6 MG/DL (8.5-10.1); Osmolality,Calculated 286.3 MOS/KG (273-304); Potassium 4.6 MMOL/L (3.5-5.1)
[2018-07-27 03:21] LABS: CKMB % 1.5 %
[2018-07-27 03:22] LABS: Troponin I 0.093 NG/ML (0.00-0.045)
[2018-07-27] MEDS ORDERED: Mirabegron [Myrbetriq] 50 MG PO SCH (09:00)
[2018-07-27] MEDS ORDERED: THIORIDAZINE 25 MG TABLET PO SCH (09:00)
[2018-07-27] MEDS: ASPIRIN EC 81 MG TABLET PO SCH (09:59)
[2018-07-27] MEDS: PANTOPRAZOLE 40 MG TABLET PO SCH (09:59)
[2018-07-27] MEDS: MEMANTINE 10 MG TABLET PO SCH ×2 (09:59→20:33)
[2018-07-27] MEDS: CLOPIDOGREL 75 MG TABLET PO SCH (09:59)
[2018-07-27] MEDS: CARVEDILOL 3.125 MG TABLET PO SCH (10:00)
[2018-07-27] MEDS: ISOSORBIDE MONONITRATE 30 MG TABLET PO SCH (10:00)
[2018-07-27] MEDS: CARBIDOPA/LEVODOPA 25-100 MG TABLET PO SCH ×3 (10:00→20:33)
[2018-07-27] MEDS: LIDOCAINE 5% PATCH TRANSDERM SCH (10:15)
[2018-07-27] MEDS: traMADol 50 MG TABLET PO PRN (16:31)
[2018-07-27] MEDS: SODIUM CHLORIDE 0.45% 1,000 ML IV SCH (18:29)
[2018-07-27] MEDS: MAGNESIUM OXIDE 400 MG TABLET PO SCH (20:33)
[2018-07-27] MEDS ORDERED: hydrALAZINE 25 MG TABLET PO SCH (21:00)
[2018-07-28] MEDS ORDERED: SIMETHICONE CHEW 80 MG TABLET PO PRN (00:44)
[2018-07-28] MEDS: SODIUM CHLORIDE 0.45% 1,000 ML IV SCH ×2 (04:34→21:15)
[2018-07-28 05:31] LABS: Calcium 8.8 MG/DL (8.5-10.1); Osmolality,Calculated 284.1 MOS/KG (273-304); Potassium 4.4 MMOL/L (3.5-5.1)
[2018-07-28] MEDS ORDERED: LOSARTAN 50 MG TABLET PO ONE (05:54)
[2018-07-28] MEDS ORDERED: hydrALAZINE 25 MG TABLET PO PRN (06:17)
[2018-07-28] MEDS ORDERED: cloNIDine 0.1 MG TABLET PO ONE (06:47)
[2018-07-28 08:42] LABS: Folate 20.6 NG/ML (5.4-24.0)
[2018-07-28] MEDS ORDERED: NON-FORMULARY MEDICATION (Omeprazole [Prilosec] 20 MG) PO SCH (09:00)
[2018-07-28] MEDS ORDERED: cloNIDine 0.1 MG TABLET PO SCH (09:00)
[2018-07-28] MEDS: CARBIDOPA/LEVODOPA 25-100 MG TABLET PO SCH ×3 (10:06→20:40)
[2018-07-28] MEDS: ISOSORBIDE MONONITRATE 30 MG TABLET PO SCH (10:07)
[2018-07-28] MEDS: ACETAMINOPHEN 325 MG TABLET PO PRN (10:08)
[2018-07-28] MEDS: ESTROGENS (CONJ) 0.45 MG TABLET PO SCH (10:08)
[2018-07-28] MEDS: PANTOPRAZOLE 40 MG TABLET PO SCH (10:11)
[2018-07-28] MEDS: CLOPIDOGREL 75 MG TABLET PO SCH (10:11)
[2018-07-28] MEDS: MEMANTINE 10 MG TABLET PO SCH ×2 (10:11→20:40)
[2018-07-28] MEDS: ASPIRIN EC 81 MG TABLET PO SCH (10:12)
[2018-07-28] MEDS: FUROSEMIDE 20 MG TABLET PO SCH (10:13)
[2018-07-28] MEDS: CARVEDILOL 3.125 MG TABLET PO SCH (10:14)
[2018-07-28] MEDS: LIDOCAINE 5% PATCH TRANSDERM SCH (10:18)
[2018-07-28] MEDS: ATORVASTATIN 10 MG TABLET PO SCH (20:40)
[2018-07-28] MEDS: MAGNESIUM OXIDE 400 MG TABLET PO SCH (20:40)
[2018-07-28] MEDS: LOSARTAN 50 MG TABLET PO SCH (20:40)
[2018-07-29] MEDS: MEMANTINE 10 MG TABLET PO SCH ×2 (08:53→21:07)
[2018-07-29] MEDS: CLOPIDOGREL 75 MG TABLET PO SCH (08:53)
[2018-07-29] MEDS: ASPIRIN EC 81 MG TABLET PO SCH (08:53)
[2018-07-29] MEDS: CARVEDILOL 3.125 MG TABLET PO SCH (08:53)
[2018-07-29] MEDS: CARBIDOPA/LEVODOPA 25-100 MG TABLET PO SCH ×3 (08:53→21:07)
[2018-07-29] MEDS: LOSARTAN 50 MG TABLET PO SCH ×2 (08:54→21:07)
[2018-07-29] MEDS: ISOSORBIDE MONONITRATE 30 MG TABLET PO SCH (08:54)
[2018-07-29] MEDS: PANTOPRAZOLE 40 MG TABLET PO SCH (08:54)
[2018-07-29] MEDS: FUROSEMIDE 20 MG TABLET PO SCH (08:55)
[2018-07-29] MEDS: LIDOCAINE 5% PATCH TRANSDERM SCH (08:56)
[2018-07-29] MEDS ORDERED: LOSARTAN 50 MG TABLET PO SCH (09:00)
[2018-07-29] MEDS: ESTROGENS (CONJ) 0.45 MG TABLET PO SCH (09:53)
[2018-07-29] MEDS: ACETAMINOPHEN 325 MG TABLET PO PRN (10:45)
[2018-07-29] MEDS ORDERED: TUBERCULIN SKIN TEST 0.1 ML SYRINGE INTRADERM ONE (13:32)
[2018-07-29] MEDS: ATORVASTATIN 10 MG TABLET PO SCH (21:07)
[2018-07-29] MEDS: traMADol 50 MG TABLET PO PRN (21:07)
[2018-07-29] MEDS: MAGNESIUM OXIDE 400 MG TABLET PO SCH (21:07)
[2018-07-30] MEDS: SODIUM CHLORIDE 0.45% 1,000 ML IV SCH ×2 (00:19→01:02)
[2018-07-30] MEDS: ASPIRIN EC 81 MG TABLET PO SCH (09:41)
[2018-07-30] MEDS: PANTOPRAZOLE 40 MG TABLET PO SCH (09:41)
[2018-07-30] MEDS: LOSARTAN 50 MG TABLET PO SCH ×2 (09:42→20:51)
[2018-07-30] MEDS: FUROSEMIDE 20 MG TABLET PO SCH (09:42)
[2018-07-30] MEDS: CLOPIDOGREL 75 MG TABLET PO SCH (09:42)
[2018-07-30] MEDS: ISOSORBIDE MONONITRATE 30 MG TABLET PO SCH (09:42)
[2018-07-30] MEDS: CARVEDILOL 3.125 MG TABLET PO SCH (09:42)
[2018-07-30] MEDS: CARBIDOPA/LEVODOPA 25-100 MG TABLET PO SCH ×3 (09:43→20:51)
[2018-07-30] MEDS: LIDOCAINE 5% PATCH TRANSDERM SCH (09:43)
[2018-07-30] MEDS: MEMANTINE 10 MG TABLET PO SCH ×2 (09:43→20:51)
[2018-07-30] MEDS: ESTROGENS (CONJ) 0.45 MG TABLET PO SCH (09:59)
[2018-07-30] MEDS: ATORVASTATIN 10 MG TABLET PO SCH (20:51)
[2018-07-30] MEDS: MAGNESIUM OXIDE 400 MG TABLET PO SCH (20:51)
[2018-07-31] MEDS: CARVEDILOL 3.125 MG TABLET PO SCH (08:32)
[2018-07-31] MEDS: CARBIDOPA/LEVODOPA 25-100 MG TABLET PO SCH (08:32)
[2018-07-31] MEDS: PANTOPRAZOLE 40 MG TABLET PO SCH (08:32)
[2018-07-31] MEDS: ISOSORBIDE MONONITRATE 30 MG TABLET PO SCH (08:32)
[2018-07-31] MEDS: CLOPIDOGREL 75 MG TABLET PO SCH (08:32)
[2018-07-31] MEDS: FUROSEMIDE 20 MG TABLET PO SCH (08:32)
[2018-07-31] MEDS: ASPIRIN EC 81 MG TABLET PO SCH (08:32)
[2018-07-31] MEDS: LOSARTAN 50 MG TABLET PO SCH (08:33)
[2018-07-31] MEDS: MEMANTINE 10 MG TABLET PO SCH (08:33)
[2018-07-31] MEDS: LIDOCAINE 5% PATCH TRANSDERM SCH (08:33)
[2018-07-31] MEDS: ESTROGENS (CONJ) 0.45 MG TABLET PO SCH (08:51)
[2018-07-31 12:17] VITALS: BP 142/82
== END 2018-07-31 13:45 | DRG 313 ==
LOC: EDUNIT# → EDBD → N.ED 16:36 → N.EDINP 16:36 → N.TELEN 19:26
PROVIDERS: ADMIT Family Medicine; ATTEND Family Medicine

== ENCOUNTER 2019-01-18 20:35 | Inpatient (IN) ==
[2019-01-18] MEDS ORDERED: SODIUM CHLORIDE 0.9% 1,000 ML IV STA (20:50)
[2019-01-18] MEDS ORDERED: methylPREDNISolone SOD SUC 125 MG/2 ML VIAL IV STA (20:50)
[2019-01-18] MEDS ORDERED: ALBUTEROL/IPRATROPIUM 3 ML NEB RESP TX STA (20:50)
[2019-01-18] MEDS ORDERED: hydrALAZINE 20 MG/1 ML VIAL ONE (21:23)
[2019-01-18] MEDS ORDERED: PIPERACILLIN/TAZOBACTAM 3,375 MG in SODIUM CHLORIDE 0.9% 100 ML IV STA (21:30)
[2019-01-18] MEDS ORDERED: VANCOMYCIN INJ 1,000 MG in SODIUM CHLORIDE 0.9% 250 ML IV STA (21:30)
[2019-01-18] MEDS ORDERED: hydrALAZINE 20 MG/1 ML VIAL IV STA (21:30)
[2019-01-18 21:33] LABS: Basophils % 0.3 % (0.0-0.8); Eosinophils # 0.2 10*3/uL (0.0-0.87); Hematocrit 29.3 VOL% (35.7-47.0); Hemoglobin 9.7 GM/DL (12.0-16.0); Immature Granulocytes % 0.4 %; Immature Granulocytes Absolute 0.05 #; Lymphocytes # 1.6 10*3/uL (1.4-4.0); Lymphocytes % 13.7 % (21.3-54.2); Mean Corpuscular HGB Conc 33.1 GM/DL (32-36); Mean Corpuscular Volume 94.5 FL (87-102); Mean Platelet Volume 10.4 FL (9.6-12.0); Monocytes % 7.6 % (1.7-12.7); Platelet Count 188 T/CUMM (130-400); Red Cell Distribution Width 13.6 % (9.3-17.3); White Blood Count 11.3 T/CUMM (4-12)
[2019-01-18] MEDS ORDERED: PIPERACILLIN/TAZOBACTAM 3,375 MG VIAL IV ONE (21:35)
[2019-01-18 21:50] LABS: PT Patient Result 10.5 SECS (9.6-12.2)
[2019-01-18 21:52] LABS: Alanine Aminotransferase < 9 U/L (13-56); Albumin 3.1 G/DL (3.4-5.0); Alkaline Phosphatase 59 U/L (45-117); Aspartate Amino Transferase 12 U/L (0-37); Blood Urea Nitrogen 15 MG/DL (7-18); Calcium 8.2 MG/DL (8.5-10.1); Glucose 122 MG/DL (74-106); Osmolality,Calculated 269.2 MOS/KG (273-304); Total Protein 6.5 G/DL (6.4-8.3)
[2019-01-18 21:54] LABS: Troponin I 0.052 NG/ML (0.00-0.045)
[2019-01-18] MEDS ORDERED: ONDANSETRON 4 MG/2 ML VIAL IV PRN (22:47)
[2019-01-18] MEDS ORDERED: SODIUM CHLORIDE 0.9% 1,000 ML IV SCH (23:00)
[2019-01-18] MEDS ORDERED: ENOXAPARIN 30 MG/0.3 ML SYRINGE SUBCUT SCH (23:00)
[2019-01-19] MEDS ORDERED: ALBUTEROL/IPRATROPIUM 3 ML NEB RESP TX PRN (00:39)
[2019-01-19] MEDS: ALBUTEROL/IPRATROPIUM 3 ML NEB RESP TX SCH ×7 (00:57→23:00)
[2019-01-19] MEDS: ACETAMINOPHEN 325 MG TABLET PO PRN ×2 (01:32→07:41)
[2019-01-19 05:35] LABS: Basophils % 0.1 % (0.0-0.8); Hemoglobin 10.3 GM/DL (12.0-16.0); Immature Granulocytes % 0.5 %; Immature Granulocytes Absolute 0.04 #; Lymphocytes # 0.6 10*3/uL (1.4-4.0); Lymphocytes % 6.4 % (21.3-54.2); Mean Corpuscular HGB Conc 33.2 GM/DL (32-36); Mean Corpuscular Volume 92.8 FL (87-102); Mean Platelet Volume 10.6 FL (9.6-12.0); Monocytes % 0.8 % (1.7-12.7); Neutrophils % 92.2 % (38.7-73.9); Platelet Count 211 T/CUMM (130-400); Red Blood Count 3.34 MC/CUMM (3.8-5.5); Red Cell Distribution Width 13.6 % (9.3-17.3); White Blood Count 8.7 T/CUMM (4-12)
[2019-01-19 06:02] LABS: Hypochromasia 1+; Lymphocytes 2 % (20-55); Ovalocytes Slight; Platelet Estimate Adequate; Segmented Neutrophils 97 % (50-85); Total Cells Counted 100
[2019-01-19 06:11] LABS: Albumin 3.1 G/DL (3.4-5.0); Bilirubin,Total 0.8 MG/DL (0.2-1.0); Calcium 8.6 MG/DL (8.5-10.1); Osmolality,Calculated 281.5 MOS/KG (273-304); Total Protein 7.1 G/DL (6.4-8.3)
[2019-01-19] MEDS ORDERED: NITROGLYCERIN SL 0.4 MG TABLET SL PRN (07:45)
[2019-01-19] MEDS ORDERED: cloNIDine 0.1 MG TABLET PO PRN (07:45)
[2019-01-19] MEDS ORDERED: SIMETHICONE CHEW 80 MG TABLET PO PRN (07:45)
[2019-01-19] MEDS ORDERED: traMADol 50 MG TABLET PO PRN (07:45)
[2019-01-19] MEDS ORDERED: BISACODYL 5 MG TABLET PO PRN (07:45)
[2019-01-19] MEDS ORDERED: LIDOCAINE 5% PATCH TRANSDERM PRN (07:45)
[2019-01-19] MEDS ORDERED: LOPERAMIDE 2 MG CAPSULE PO PRN (09:00)
[2019-01-19] MEDS ORDERED: THIORIDAZINE 25 MG TABLET PO SCH (09:00)
[2019-01-19] MEDS ORDERED: FUROSEMIDE 40 MG/4 ML VIAL IV ONE (09:00)
[2019-01-19] MEDS ORDERED: ESTROGENS (CONJ) 0.45 MG TABLET PO SCH ×2 (09:00→11:30)
[2019-01-19] MEDS ORDERED: NON-FORMULARY MEDICATION (Omeprazole 20 MG) PO SCH (09:00)
[2019-01-19] MEDS: ISOSORBIDE MONONITRATE 30 MG TABLET PO SCH (09:01)
[2019-01-19] MEDS: PANTOPRAZOLE 40 MG TABLET PO SCH (09:02)
[2019-01-19] MEDS: cefTRIAXone 1,000 MG in SYRINGE 1 EACH IV SCH (09:02)
[2019-01-19] MEDS: MULTIVITAMIN (CENTRUM) TABLET PO SCH (09:02)
[2019-01-19] MEDS: ASPIRIN EC 81 MG TABLET PO SCH (09:02)
[2019-01-19] MEDS: LOSARTAN 50 MG TABLET PO SCH ×2 (09:02→20:28)
[2019-01-19] MEDS: CARVEDILOL 3.125 MG TABLET PO SCH (09:02)
[2019-01-19] MEDS: MULTIVITAMIN (OCUVITE) TABLET PO SCH (09:02)
[2019-01-19] MEDS: CLOPIDOGREL 75 MG TABLET PO SCH (09:02)
[2019-01-19] MEDS: DOCUSATE SODIUM 100 MG CAPSULE PO SCH ×2 (09:09→20:02)
[2019-01-19] MEDS: methylPREDNISolone SOD SUC 40 MG/1 ML VIAL IV SCH ×2 (09:12→20:31)
[2019-01-19] MEDS: MYRBETRIQ PO SCH (09:51)
[2019-01-19] MEDS: CALCIUM (CARBONATE) 600 MG TABLET PO SCH (09:52)
[2019-01-19] MEDS: MEMANTINE 10 MG TABLET PO SCH ×2 (09:52→20:28)
[2019-01-19] MEDS: CARBIDOPA/LEVODOPA 25-100 MG TABLET PO SCH ×3 (09:54→20:28)
[2019-01-19] MEDS: MOMETASONE 50 MCG NASAL SPRAY 17 GM BOTTLE BOTH NARES SCH (09:54)
[2019-01-19] MEDS: THIORIDAZINE 25 MG TABLET PO SCH (12:29)
[2019-01-19] MEDS: ESTROGENS (CONJ) 0.9 MG TABLET PO SCH (15:48)
[2019-01-19] MEDS: ATORVASTATIN 10 MG TABLET PO SCH (20:28)
[2019-01-19] MEDS: MAGNESIUM OXIDE 400 MG TABLET PO SCH (20:28)
[2019-01-19] MEDS ORDERED: ENOXAPARIN 40 MG/0.4 ML SYRINGE SUBCUT SCH (21:00)
[2019-01-20] MEDS: ALBUTEROL/IPRATROPIUM 3 ML NEB RESP TX SCH ×7 (03:15→23:46)
[2019-01-20] MEDS: MOMETASONE 50 MCG NASAL SPRAY 17 GM BOTTLE BOTH NARES SCH (09:54)
[2019-01-20] MEDS: MEMANTINE 10 MG TABLET PO SCH ×2 (09:58→20:38)
[2019-01-20] MEDS: CARVEDILOL 3.125 MG TABLET PO SCH (09:59)
[2019-01-20] MEDS: MULTIVITAMIN (OCUVITE) TABLET PO SCH (09:59)
[2019-01-20] MEDS: CALCIUM (CARBONATE) 600 MG TABLET PO SCH (09:59)
[2019-01-20] MEDS: ASPIRIN EC 81 MG TABLET PO SCH (09:59)
[2019-01-20] MEDS: ISOSORBIDE MONONITRATE 30 MG TABLET PO SCH (09:59)
[2019-01-20] MEDS: DOCUSATE SODIUM 100 MG CAPSULE PO SCH ×2 (09:59→20:38)
[2019-01-20] MEDS: MULTIVITAMIN (CENTRUM) TABLET PO SCH (09:59)
[2019-01-20] MEDS: LOSARTAN 50 MG TABLET PO SCH ×2 (09:59→20:38)
[2019-01-20] MEDS: PANTOPRAZOLE 40 MG TABLET PO SCH (09:59)
[2019-01-20] MEDS: predniSONE 20 MG TABLET PO SCH (10:00)
[2019-01-20] MEDS: cefTRIAXone 1,000 MG in SYRINGE 1 EACH IV SCH (10:00)
[2019-01-20] MEDS: CARBIDOPA/LEVODOPA 25-100 MG TABLET PO SCH ×3 (10:00→20:38)
[2019-01-20] MEDS: ESTROGENS (CONJ) 0.9 MG TABLET PO SCH (10:07)
[2019-01-20] MEDS: CLOPIDOGREL 75 MG TABLET PO SCH (10:27)
[2019-01-20] MEDS: MYRBETRIQ PO SCH (10:31)
[2019-01-20] MEDS: THIORIDAZINE 25 MG TABLET PO SCH (10:32)
[2019-01-20] MEDS: ATORVASTATIN 10 MG TABLET PO SCH (20:38)
[2019-01-20] MEDS: MAGNESIUM OXIDE 400 MG TABLET PO SCH (20:38)
[2019-01-21] MEDS: ALBUTEROL/IPRATROPIUM 3 ML NEB RESP TX SCH ×6 (03:30→23:42)
[2019-01-21] MEDS ORDERED: ESTROGENS (CONJ) 0.45 MG TABLET PO SCH (09:00)
[2019-01-21] MEDS ORDERED: FUROSEMIDE 40 MG/4 ML VIAL IV ONE (09:00)
[2019-01-21] MEDS: CALCIUM (CARBONATE) 600 MG TABLET PO SCH (09:16)
[2019-01-21] MEDS: ASPIRIN EC 81 MG TABLET PO SCH (09:16)
[2019-01-21] MEDS: CARBIDOPA/LEVODOPA 25-100 MG TABLET PO SCH ×3 (09:16→22:21)
[2019-01-21] MEDS: DOCUSATE SODIUM 100 MG CAPSULE PO SCH ×2 (09:17→22:30)
[2019-01-21] MEDS: CARVEDILOL 3.125 MG TABLET PO SCH (09:17)
[2019-01-21] MEDS: CLOPIDOGREL 75 MG TABLET PO SCH (09:17)
[2019-01-21] MEDS: ISOSORBIDE MONONITRATE 30 MG TABLET PO SCH (09:17)
[2019-01-21] MEDS: LOSARTAN 50 MG TABLET PO SCH ×2 (09:17→22:22)
[2019-01-21] MEDS: PANTOPRAZOLE 40 MG TABLET PO SCH (09:17)
[2019-01-21] MEDS: predniSONE 20 MG TABLET PO SCH (09:17)
[2019-01-21] MEDS: MULTIVITAMIN (OCUVITE) TABLET PO SCH (09:17)
[2019-01-21] MEDS: MULTIVITAMIN (CENTRUM) TABLET PO SCH (09:17)
[2019-01-21] MEDS: cefTRIAXone 1,000 MG in SYRINGE 1 EACH IV SCH (09:18)
[2019-01-21] MEDS: MOMETASONE 50 MCG NASAL SPRAY 17 GM BOTTLE BOTH NARES SCH (09:18)
[2019-01-21] MEDS: MEMANTINE 10 MG TABLET PO SCH ×2 (09:18→22:22)
[2019-01-21] MEDS: THIORIDAZINE 25 MG TABLET PO SCH (09:37)
[2019-01-21] MEDS: MYRBETRIQ PO SCH (09:37)
[2019-01-21] MEDS: FUROSEMIDE 20 MG TABLET PO SCH (09:51)
[2019-01-21] MEDS: APIXABAN 2.5 MG TABLET PO SCH (22:21)
[2019-01-21] MEDS: MAGNESIUM OXIDE 400 MG TABLET PO SCH (22:22)
[2019-01-21] MEDS: ATORVASTATIN 10 MG TABLET PO SCH (22:22)
[2019-01-21] MEDS: SOTALOL 80 MG TABLET PO SCH (22:30)
[2019-01-22] MEDS: ALBUTEROL/IPRATROPIUM 3 ML NEB RESP TX SCH ×5 (03:56→18:51)
[2019-01-22 06:19] LABS: Basophils % 0.2 % (0.0-0.8); Eosinophils % 0.2 % (0.00-10.9); Hematocrit 32.6 VOL% (35.7-47.0); Hemoglobin 10.8 GM/DL (12.0-16.0); Immature Granulocytes % 0.7 %; Immature Granulocytes Absolute 0.09 #; Lymphocytes # 2.4 10*3/uL (1.4-4.0); Lymphocytes % 18.3 % (21.3-54.2); Mean Corpuscular HGB Conc 33.1 GM/DL (32-36); Mean Corpuscular Volume 92.6 FL (87-102); Mean Platelet Volume 10.1 FL (9.6-12.0); Monocytes % 9.1 % (1.7-12.7); Neutrophils % 71.5 % (38.7-73.9); Platelet Count 226 T/CUMM (130-400); Red Blood Count 3.52 MC/CUMM (3.8-5.5); Red Cell Distribution Width 13.4 % (9.3-17.3); White Blood Count 13.1 T/CUMM (4-12)
[2019-01-22 06:33] LABS: Osmolality,Calculated 273.1 MOS/KG (273-304)
[2019-01-22] MEDS: MOMETASONE 50 MCG NASAL SPRAY 17 GM BOTTLE BOTH NARES SCH (09:07)
[2019-01-22] MEDS: FUROSEMIDE 20 MG TABLET PO SCH (09:07)
[2019-01-22] MEDS: MEMANTINE 10 MG TABLET PO SCH ×2 (09:07→21:34)
[2019-01-22] MEDS: PANTOPRAZOLE 40 MG TABLET PO SCH (09:07)
[2019-01-22] MEDS: SOTALOL 80 MG TABLET PO SCH ×2 (09:08→21:33)
[2019-01-22] MEDS: CLOPIDOGREL 75 MG TABLET PO SCH (09:08)
[2019-01-22] MEDS: CALCIUM (CARBONATE) 600 MG TABLET PO SCH (09:08)
[2019-01-22] MEDS: MULTIVITAMIN (OCUVITE) TABLET PO SCH (09:08)
[2019-01-22] MEDS: LOSARTAN 50 MG TABLET PO SCH ×2 (09:08→21:33)
[2019-01-22] MEDS: ISOSORBIDE MONONITRATE 30 MG TABLET PO SCH (09:08)
[2019-01-22] MEDS: DOCUSATE SODIUM 100 MG CAPSULE PO SCH ×2 (09:09→21:33)
[2019-01-22] MEDS: MULTIVITAMIN (CENTRUM) TABLET PO SCH (09:09)
[2019-01-22] MEDS: APIXABAN 2.5 MG TABLET PO SCH ×2 (09:09→21:33)
[2019-01-22] MEDS: predniSONE 20 MG TABLET PO SCH (09:09)
[2019-01-22] MEDS: cefTRIAXone 1,000 MG in SYRINGE 1 EACH IV SCH (09:09)
[2019-01-22] MEDS: CARBIDOPA/LEVODOPA 25-100 MG TABLET PO SCH ×3 (09:09→21:34)
[2019-01-22] MEDS: MAGNESIUM OXIDE 400 MG TABLET PO SCH (21:34)
[2019-01-22] MEDS: ATORVASTATIN 10 MG TABLET PO SCH (21:34)
[2019-01-23] MEDS: ALBUTEROL/IPRATROPIUM 3 ML NEB RESP TX SCH ×3 (00:12→07:22)
[2019-01-23 08:00] VITALS: BP 160/97
[2019-01-23] MEDS: SOTALOL 80 MG TABLET PO SCH (08:48)
[2019-01-23] MEDS: ISOSORBIDE MONONITRATE 30 MG TABLET PO SCH (08:49)
[2019-01-23] MEDS: MULTIVITAMIN (OCUVITE) TABLET PO SCH (08:49)
[2019-01-23] MEDS: LOSARTAN 50 MG TABLET PO SCH (08:49)
[2019-01-23] MEDS: CALCIUM (CARBONATE) 600 MG TABLET PO SCH (08:49)
[2019-01-23] MEDS: APIXABAN 2.5 MG TABLET PO SCH (08:49)
[2019-01-23] MEDS: PANTOPRAZOLE 40 MG TABLET PO SCH (08:49)
[2019-01-23] MEDS: MULTIVITAMIN (CENTRUM) TABLET PO SCH (08:49)
[2019-01-23] MEDS: FUROSEMIDE 20 MG TABLET PO SCH (08:49)
[2019-01-23] MEDS: CARBIDOPA/LEVODOPA 25-100 MG TABLET PO SCH (08:50)
[2019-01-23] MEDS: cefTRIAXone 1,000 MG in SYRINGE 1 EACH IV SCH (08:50)
[2019-01-23] MEDS: predniSONE 20 MG TABLET PO SCH (08:50)
[2019-01-23] MEDS: MEMANTINE 10 MG TABLET PO SCH (08:50)
[2019-01-23] MEDS: DOCUSATE SODIUM 100 MG CAPSULE PO SCH (08:50)
[2019-01-23] MEDS ORDERED: ASPIRIN EC 81 MG TABLET PO SCH (09:00)
[2019-01-23] MEDS ORDERED: ESTROGENS (CONJ) 0.45 MG TABLET PO SCH (10:00)
[2019-01-23] MEDS: MOMETASONE 50 MCG NASAL SPRAY 17 GM BOTTLE BOTH NARES SCH (17:45)
== END 2019-01-23 11:00 | DRG 202 ==
LOC: EDUNIT# → EDBD → N.ED 20:35 → N.EDINP 22:47 → N.2E 23:04
PROVIDERS: ADMIT Family Medicine; ATTEND Family Medicine

== ENCOUNTER 2019-02-22 19:15 | Inpatient (IN) ==
[2019-02-22] MEDS ORDERED: SODIUM CHLORIDE 0.9% 1,000 ML IV STA (19:28)
[2019-02-22] MEDS ORDERED: VANCOMYCIN INJ 1,000 MG in SODIUM CHLORIDE 0.9% 250 ML IV STA (19:30)
[2019-02-22 19:53] LABS: Basophils % 0.3 % (0.0-0.8); Eosinophils # 0.1 10*3/uL (0.0-0.87); Eosinophils % 1.5 % (0.00-10.9); Hematocrit 28.8 VOL% (35.7-47.0); Hemoglobin 9.3 GM/DL (12.0-16.0); Immature Granulocytes % 0.4 %; Immature Granulocytes Absolute 0.04 #; Lymphocytes % 21.7 % (21.3-54.2); Mean Corpuscular HGB Conc 32.3 GM/DL (32-36); Monocytes % 14.4 % (1.7-12.7); Neutrophils % 61.7 % (38.7-73.9); Platelet Count 208 T/CUMM (130-400); Red Cell Distribution Width 14.4 % (9.3-17.3); White Blood Count 9.4 T/CUMM (4-12)
[2019-02-22 20:07] LABS: INR 1.2; PT Patient Result 12.7 SECS (9.6-12.2); Partial Thromboplastin Time 30.5 SECS (20.8-36.0)
[2019-02-22 20:09] LABS: Barbiturates Screen,Urine Negative (Negative); Benzodiazepines Screen,Urine Negative (Negative); Cannabinoid Screen,Urine Negative (Negative); Opiate Screen,Urine Negative (Negative); Phencyclidine Screen,Urine Negative (Negative)
[2019-02-22 20:19] LABS: Alanine Aminotransferase < 6 U/L (13-56); Albumin 2.6 G/DL (3.4-5.0); Alkaline Phosphatase 49 U/L (45-117); Aspartate Amino Transferase 17 U/L (0-37); Bilirubin,Total < 0.39 MG/DL (0.2-1.0); Blood Urea Nitrogen 21 MG/DL (7-18); Calcium 8.5 MG/DL (8.5-10.1); Estimated Glom Filtration Rate 30 ML/MIN; Glucose 134 MG/DL (74-106); Osmolality,Calculated 257.4 MOS/KG (273-304); Total Protein 5.9 G/DL (6.4-8.3); Troponin I 0.027 NG/ML (0.00-0.045)
[2019-02-22 20:43] LABS: Apearance,Urine Slightly Hazy (Clear); Bacteria,Urine Occasional /HPF (Few); Bilirubin,Urine Negative (Negative); Blood, Urine Negative (Negative); Glucose,Urine (UA) Negative (Negative); Hyaline Casts,Urine 1 /LPF (0-3); Ketones,Urine Negative (Negative); Nitrite,Urine Negative (Negative); Protein,Urine 100 MG/DL; RBC,Urine 5 /HPF (0-4); Urine Color Yellow (Yellow); Urine Specific Gravity 1.013 (1.001-1.035); Urine Urobilinogen < 2.0 EU/DL (0.2-1.0); WBC,Urine 99 /HPF (0-6)
[2019-02-22] MEDS ORDERED: ONDANSETRON 4 MG/2 ML VIAL IV PRN (21:01)
[2019-02-22] MEDS ORDERED: ACETAMINOPHEN 325 MG TABLET PO PRN (21:01)
[2019-02-22] MEDS ORDERED: LEVOFLOXACIN INJ 750 MG in PREMIX 1 EACH IV SCH (21:30)
[2019-02-22] MEDS ORDERED: ZINC OXIDE PASTE 113 GM TUBE TOP PRN (22:55)
[2019-02-22] MEDS: cloNIDine 0.1 MG TABLET PO SCH (23:04)
[2019-02-22] MEDS: SODIUM CHLORIDE 0.9% 1,000 ML IV SCH (23:09)
[2019-02-23 05:13] LABS: Basophils % 0.3 % (0.0-0.8); Eosinophils # 0.2 10*3/uL (0.0-0.87); Eosinophils % 1.6 % (0.00-10.9); Hematocrit 28.6 VOL% (35.7-47.0); Hemoglobin 9.3 GM/DL (12.0-16.0); Immature Granulocytes % 0.4 %; Immature Granulocytes Absolute 0.04 #; Lymphocytes # 1.7 10*3/uL (1.4-4.0); Lymphocytes % 17.2 % (21.3-54.2); Mean Corpuscular HGB Conc 32.5 GM/DL (32-36); Mean Platelet Volume 10.2 FL (9.6-12.0); Monocytes % 12.1 % (1.7-12.7); Neutrophils % 68.4 % (38.7-73.9); Platelet Count 201 T/CUMM (130-400); Red Blood Count 3.01 MC/CUMM (3.8-5.5); Red Cell Distribution Width 14.5 % (9.3-17.3); White Blood Count 9.8 T/CUMM (4-12)
[2019-02-23 05:35] LABS: Calcium 8.4 MG/DL (8.5-10.1); Osmolality,Calculated 262.7 MOS/KG (273-304)
[2019-02-23] MEDS ORDERED: carvediloL 6.25 MG TABLET PO SCH (08:00)
[2019-02-23] MEDS ORDERED: CLOPIDOGREL 75 MG TABLET PO SCH (09:00)
[2019-02-23] MEDS: PANTOPRAZOLE 40 MG TABLET PO SCH (09:03)
[2019-02-23] MEDS: cloNIDine 0.1 MG TABLET PO SCH (09:03)
[2019-02-23] MEDS: ISOSORBIDE MONONITRATE 30 MG TABLET PO SCH (09:03)
[2019-02-23] MEDS: APIXABAN 2.5 MG TABLET PO SCH ×2 (09:13→21:10)
[2019-02-23] MEDS: amLODIPine 5 MG TABLET PO SCH (09:13)
[2019-02-23] MEDS: CARBIDOPA/LEVODOPA 10-100 MG TABLET PO SCH ×3 (09:13→21:11)
[2019-02-23] MEDS ORDERED: ALBUTEROL/IPRATROPIUM 3 ML NEB RESP TX PRN (09:50)
[2019-02-23] MEDS: LOSARTAN 50 MG TABLET PO SCH ×2 (10:24→21:07)
[2019-02-23] MEDS: ASPIRIN EC 81 MG TABLET PO SCH (10:25)
[2019-02-23] MEDS: SOTALOL 80 MG TABLET PO SCH ×2 (10:25→21:06)
[2019-02-23] MEDS: MEMANTINE 10 MG TABLET PO SCH ×2 (10:25→21:11)
[2019-02-23] MEDS: FUROSEMIDE 20 MG TABLET PO SCH (10:25)
[2019-02-23] MEDS: ALBUTEROL/IPRATROPIUM 3 ML NEB RESP TX SCH ×2 (12:43→20:16)
[2019-02-23] MEDS: SODIUM CHLORIDE 0.9% 1,000 ML IV SCH (15:51)
[2019-02-23] MEDS: ATORVASTATIN 10 MG TABLET PO SCH (21:08)
[2019-02-24] MEDS: SODIUM CHLORIDE 0.9% 1,000 ML IV SCH ×2 (03:56→20:09)
[2019-02-24] MEDS: ALBUTEROL/IPRATROPIUM 3 ML NEB RESP TX SCH ×3 (07:11→19:24)
[2019-02-24] MEDS: cefTRIAXone 1,000 MG in SYRINGE 1 EACH IV SCH (08:38)
[2019-02-24] MEDS: CARBIDOPA/LEVODOPA 10-100 MG TABLET PO SCH ×3 (11:32→23:03)
[2019-02-24] MEDS: FUROSEMIDE 20 MG TABLET PO SCH (11:32)
[2019-02-24] MEDS: SOTALOL 80 MG TABLET PO SCH (11:32)
[2019-02-24] MEDS: ASPIRIN EC 81 MG TABLET PO SCH (11:33)
[2019-02-24] MEDS: PANTOPRAZOLE 40 MG TABLET PO SCH (11:33)
[2019-02-24] MEDS: amLODIPine 5 MG TABLET PO SCH (11:33)
[2019-02-24] MEDS: LOSARTAN 50 MG TABLET PO SCH ×2 (11:33→23:02)
[2019-02-24] MEDS: ISOSORBIDE MONONITRATE 30 MG TABLET PO SCH (11:33)
[2019-02-24] MEDS: MEMANTINE 10 MG TABLET PO SCH ×2 (11:33→23:03)
[2019-02-24] MEDS ORDERED: ALBUTEROL 2.5 MG/3 ML NEB RESP TX SCH (13:00)
[2019-02-24] MEDS ORDERED: FUROSEMIDE 40 MG/4 ML VIAL IV ONE (14:14)
[2019-02-24 14:36] LABS: ABG HCO3 25.3 MMOL/L (20-26); ABG Oxygen Saturation 97.7 % (95-100); ABG PCO2 48.7 MM HG (35-48); ABG PH 7.353 (7.35-7.45); ABG PO2 95.8 MM HG (80-95); ABG TCO2 24.7 MMOL/L (23-27)
[2019-02-24] MEDS ORDERED: POLYETHYLENE GLYCOL POWDER 17 GM PACK PO ONE (14:36)
[2019-02-24] MEDS: ATORVASTATIN 10 MG TABLET PO SCH (23:03)
[2019-02-25] MEDS: SODIUM CHLORIDE 0.9% 1,000 ML IV SCH (02:09)
[2019-02-25 05:50] LABS: Basophils # 0.1 10*3/uL (0.0-0.2); Basophils % 0.4 % (0.0-0.8); Eosinophils # 0.1 10*3/uL (0.0-0.87); Immature Granulocytes % 0.4 %; Immature Granulocytes Absolute 0.05 #; Lymphocytes % 16.1 % (21.3-54.2); Mean Corpuscular HGB Conc 33.3 GM/DL (32-36); Mean Corpuscular Volume 93.2 FL (87-102); Mean Platelet Volume 10.7 FL (9.6-12.0); Monocytes % 11.8 % (1.7-12.7); Neutrophils % 70.3 % (38.7-73.9); Platelet Count 251 T/CUMM (130-400); Red Blood Count 3.54 MC/CUMM (3.8-5.5); Red Cell Distribution Width 14.5 % (9.3-17.3); White Blood Count 12.4 T/CUMM (4-12)
[2019-02-25 06:04] LABS: Calcium 8.6 MG/DL (8.5-10.1); Osmolality,Calculated 266.1 MOS/KG (273-304)
[2019-02-25] MEDS: ALBUTEROL/IPRATROPIUM 3 ML NEB RESP TX SCH ×3 (07:08→19:38)
[2019-02-25] MEDS: FUROSEMIDE 40 MG/4 ML VIAL IV SCH ×2 (08:11→15:47)
[2019-02-25] MEDS: cefTRIAXone 1,000 MG in SYRINGE 1 EACH IV SCH (08:11)
[2019-02-25] MEDS: FUROSEMIDE 20 MG TABLET PO SCH (09:42)
[2019-02-25] MEDS: SOTALOL 80 MG TABLET PO SCH (09:42)
[2019-02-25] MEDS: ASPIRIN EC 81 MG TABLET PO SCH (09:42)
[2019-02-25] MEDS: MEMANTINE 10 MG TABLET PO SCH ×2 (09:43→20:47)
[2019-02-25] MEDS: LOSARTAN 50 MG TABLET PO SCH ×2 (09:43→20:47)
[2019-02-25] MEDS: CARBIDOPA/LEVODOPA 10-100 MG TABLET PO SCH ×3 (09:43→20:47)
[2019-02-25] MEDS: ISOSORBIDE MONONITRATE 30 MG TABLET PO SCH (09:43)
[2019-02-25] MEDS: amLODIPine 5 MG TABLET PO SCH (09:43)
[2019-02-25] MEDS: PANTOPRAZOLE 40 MG TABLET PO SCH (09:43)
[2019-02-25] MEDS: POTASSIUM CHLORIDE 20 MEQ TABLET PO SCH (09:53)
[2019-02-25] MEDS: ATORVASTATIN 10 MG TABLET PO SCH (20:47)
[2019-02-26 05:37] LABS: Osmolality,Calculated 275.5 MOS/KG (273-304)
[2019-02-26] MEDS: ALBUTEROL/IPRATROPIUM 3 ML NEB RESP TX SCH ×3 (07:29→19:26)
[2019-02-26] MEDS: FUROSEMIDE 40 MG/4 ML VIAL IV SCH ×2 (07:39→15:35)
[2019-02-26] MEDS ORDERED: LACTATED RINGERS 1,000 ML IV SCH (08:00)
[2019-02-26] MEDS ORDERED: PROPOFOL 200 MG/20 ML VIAL IV ONE (09:00)
[2019-02-26] MEDS ORDERED: LIDOCAINE 2% 5 ML VIAL ONE (09:00)
[2019-02-26] MEDS: cefTRIAXone 1,000 MG in SYRINGE 1 EACH IV SCH (09:26)
[2019-02-26] MEDS: POTASSIUM CHLORIDE RIDER 10 MEQ in PREMIX 1 EACH IV SCH ×2 (09:35→10:38)
[2019-02-26] MEDS: CARBIDOPA/LEVODOPA 10-100 MG TABLET PO SCH ×3 (15:17→21:22)
[2019-02-26] MEDS: FUROSEMIDE 20 MG TABLET PO SCH (15:20)
[2019-02-26] MEDS: ISOSORBIDE MONONITRATE 30 MG TABLET PO SCH (15:33)
[2019-02-26] MEDS: ASPIRIN EC 81 MG TABLET PO SCH (15:33)
[2019-02-26] MEDS: LOSARTAN 50 MG TABLET PO SCH ×2 (15:33→21:22)
[2019-02-26] MEDS: SOTALOL 80 MG TABLET PO SCH (15:33)
[2019-02-26] MEDS: PANTOPRAZOLE 40 MG TABLET PO SCH (15:34)
[2019-02-26] MEDS: BISACODYL 5 MG TABLET PO PRN (15:34)
[2019-02-26] MEDS: amLODIPine 5 MG TABLET PO SCH (15:34)
[2019-02-26] MEDS: POTASSIUM CHLORIDE 20 MEQ TABLET PO SCH (15:34)
[2019-02-26] MEDS: MEMANTINE 10 MG TABLET PO SCH ×2 (15:35→21:23)
[2019-02-26] MEDS: ATORVASTATIN 10 MG TABLET PO SCH (21:22)
[2019-02-27] MEDS: ALBUTEROL/IPRATROPIUM 3 ML NEB RESP TX SCH ×3 (07:15→19:49)
[2019-02-27] MEDS: ISOSORBIDE MONONITRATE 30 MG TABLET PO SCH (08:30)
[2019-02-27] MEDS: ASPIRIN EC 81 MG TABLET PO SCH (08:30)
[2019-02-27] MEDS: FUROSEMIDE 40 MG TABLET PO SCH (08:32)
[2019-02-27] MEDS: BISACODYL 5 MG TABLET PO PRN (08:32)
[2019-02-27] MEDS: amLODIPine 5 MG TABLET PO SCH (08:32)
[2019-02-27] MEDS: LOSARTAN 50 MG TABLET PO SCH ×2 (08:32→20:28)
[2019-02-27] MEDS: SOTALOL 80 MG TABLET PO SCH (08:32)
[2019-02-27] MEDS: MEMANTINE 10 MG TABLET PO SCH ×2 (08:33→20:28)
[2019-02-27] MEDS: CARBIDOPA/LEVODOPA 10-100 MG TABLET PO SCH ×3 (08:33→20:28)
[2019-02-27] MEDS: cefTRIAXone 1,000 MG in SYRINGE 1 EACH IV SCH (08:33)
[2019-02-27] MEDS: PANTOPRAZOLE 40 MG TABLET PO SCH (08:33)
[2019-02-27] MEDS: POTASSIUM CHLORIDE 20 MEQ TABLET PO SCH (08:33)
[2019-02-27] MEDS ORDERED: POTASSIUM CHLORIDE 20 MEQ TABLET PO ONE (09:00)
[2019-02-27] MEDS: ACETAMINOPHEN 650 MG SUPP RECTAL PRN (16:19)
[2019-02-27 16:43] LABS: Apearance,Urine CLEAR (Clear); Bilirubin,Urine Negative (Negative); Blood, Urine Moderate mg/dL (Negative); Glucose,Urine (UA) Negative (Negative); Hyaline Casts,Urine 1 /LPF (0-3); Ketones,Urine Negative (Negative); Nitrite,Urine Negative (Negative); Protein,Urine 30 MG/DL; RBC,Urine 64 /HPF (0-4); Urine Color Yellow (Yellow); Urine Specific Gravity 1.008 (1.001-1.035); Urine Urobilinogen < 2.0 EU/DL (0.2-1.0); WBC,Urine 4 /HPF (0-6)
[2019-02-27 17:32] LABS: Basophils % 0.2 % (0.0-0.8); Eosinophils # 0.1 10*3/uL (0.0-0.87); Eosinophils % 0.3 % (0.00-10.9); Hematocrit 33.4 VOL% (35.7-47.0); Hemoglobin 11.1 GM/DL (12.0-16.0); Immature Granulocytes % 0.5 %; Immature Granulocytes Absolute 0.09 #; Lymphocytes # 2.2 10*3/uL (1.4-4.0); Lymphocytes % 11.5 % (21.3-54.2); Mean Corpuscular HGB Conc 33.2 GM/DL (32-36); Mean Platelet Volume 10.1 FL (9.6-12.0); Monocytes % 14.4 % (1.7-12.7); Neutrophils % 73.1 % (38.7-73.9); Platelet Count 201 T/CUMM (130-400); Red Blood Count 3.59 MC/CUMM (3.8-5.5); Red Cell Distribution Width 14.9 % (9.3-17.3); White Blood Count 18.9 T/CUMM (4-12)
[2019-02-27] MEDS: ATORVASTATIN 10 MG TABLET PO SCH (20:28)
[2019-02-28] MEDS: LOSARTAN 50 MG TABLET PO SCH ×3 (04:22→21:26)
[2019-02-28] MEDS: MEMANTINE 10 MG TABLET PO SCH ×3 (04:23→21:26)
[2019-02-28] MEDS: ATORVASTATIN 10 MG TABLET PO SCH ×2 (04:23→21:26)
[2019-02-28] MEDS: CARBIDOPA/LEVODOPA 10-100 MG TABLET PO SCH ×4 (04:23→21:26)
[2019-02-28] MEDS: ALBUTEROL/IPRATROPIUM 3 ML NEB RESP TX SCH ×3 (07:10→19:04)
[2019-02-28] MEDS: ACETAMINOPHEN 650 MG SUPP RECTAL PRN (07:56)
[2019-02-28] MEDS: cefTRIAXone 1,000 MG in SYRINGE 1 EACH IV SCH (10:35)
[2019-02-28] MEDS: FUROSEMIDE 40 MG/4 ML VIAL IV SCH (11:16)
[2019-02-28] MEDS: PIPERACILLIN/TAZOBACTAM 3,375 MG in SODIUM CHLORIDE 0.9% 100 ML IV SCH ×2 (11:18→18:36)
[2019-02-28 11:25] LABS: Calcium 8.9 MG/DL (8.5-10.1); Osmolality,Calculated 277.7 MOS/KG (273-304)
[2019-02-28] MEDS: SOTALOL 80 MG TABLET PO SCH (11:27)
[2019-02-28] MEDS: ASPIRIN EC 81 MG TABLET PO SCH (11:37)
[2019-02-28] MEDS: amLODIPine 5 MG TABLET PO SCH (11:37)
[2019-02-28] MEDS: PANTOPRAZOLE 40 MG TABLET PO SCH (11:37)
[2019-02-28] MEDS: POTASSIUM CHLORIDE 20 MEQ TABLET PO SCH (11:37)
[2019-02-28] MEDS: ISOSORBIDE MONONITRATE 30 MG TABLET PO SCH (11:37)
[2019-02-28] MEDS: FUROSEMIDE 40 MG TABLET PO SCH (11:38)
[2019-02-28] MEDS: VANCOMYCIN INJ 1,000 MG in SODIUM CHLORIDE 0.9% 250 ML IV SCH (16:27)
[2019-03-01] MEDS: PIPERACILLIN/TAZOBACTAM 3,375 MG in SODIUM CHLORIDE 0.9% 100 ML IV SCH ×3 (04:14→21:01)
[2019-03-01 04:46] LABS: Basophils # 0.1 10*3/uL (0.0-0.2); Basophils % 0.4 % (0.0-0.8); Eosinophils # 0.4 10*3/uL (0.0-0.87); Eosinophils % 2.5 % (0.00-10.9); Hematocrit 33.9 VOL% (35.7-47.0); Hemoglobin 10.9 GM/DL (12.0-16.0); Immature Granulocytes % 1.2 %; Immature Granulocytes Absolute 0.18 #; Lymphocytes # 2.7 10*3/uL (1.4-4.0); Lymphocytes % 17.3 % (21.3-54.2); Mean Corpuscular HGB Conc 32.2 GM/DL (32-36); Mean Corpuscular Volume 94.4 FL (87-102); Mean Platelet Volume 10.4 FL (9.6-12.0); Monocytes % 10.1 % (1.7-12.7); Neutrophils % 68.5 % (38.7-73.9); Platelet Count 188 T/CUMM (130-400); Red Blood Count 3.59 MC/CUMM (3.8-5.5); White Blood Count 15.4 T/CUMM (4-12)
[2019-03-01 04:55] LABS: Calcium 8.9 MG/DL (8.5-10.1); Osmolality,Calculated 273.8 MOS/KG (273-304)
[2019-03-01] MEDS: ALBUTEROL/IPRATROPIUM 3 ML NEB RESP TX SCH ×3 (07:22→19:07)
[2019-03-01] MEDS ORDERED: FUROSEMIDE 40 MG/4 ML VIAL IV SCH (09:00)
[2019-03-01] MEDS: ASPIRIN EC 81 MG TABLET PO SCH (09:05)
[2019-03-01] MEDS: ISOSORBIDE MONONITRATE 30 MG TABLET PO SCH (09:06)
[2019-03-01] MEDS: SOTALOL 80 MG TABLET PO SCH (09:06)
[2019-03-01] MEDS: PANTOPRAZOLE 40 MG TABLET PO SCH (09:06)
[2019-03-01] MEDS: amLODIPine 5 MG TABLET PO SCH (09:06)
[2019-03-01] MEDS: CARBIDOPA/LEVODOPA 10-100 MG TABLET PO SCH ×3 (09:06→20:58)
[2019-03-01] MEDS: LOSARTAN 50 MG TABLET PO SCH ×2 (09:06→21:25)
[2019-03-01] MEDS: POTASSIUM CHLORIDE 20 MEQ TABLET PO SCH (09:06)
[2019-03-01] MEDS: MEMANTINE 10 MG TABLET PO SCH ×2 (09:06→20:58)
[2019-03-01] MEDS: FUROSEMIDE 40 MG/4 ML VIAL IV SCH (09:07)
[2019-03-01] MEDS ORDERED: MAGNESIUM SULF RIDER 4 GM in PREMIX 1 EACH IV PRN (12:32)
[2019-03-01] MEDS ORDERED: MAGNESIUM SULF RIDER 2 GM in PREMIX 1 EACH IV PRN (12:32)
[2019-03-01] MEDS: VANCOMYCIN INJ 1,000 MG in SODIUM CHLORIDE 0.9% 250 ML IV SCH (15:32)
[2019-03-01] MEDS: ATORVASTATIN 10 MG TABLET PO SCH (20:58)
[2019-03-02] MEDS: PIPERACILLIN/TAZOBACTAM 3,375 MG in SODIUM CHLORIDE 0.9% 100 ML IV SCH ×3 (04:28→18:22)
[2019-03-02 06:04] LABS: Osmolality,Calculated 277.7 MOS/KG (273-304)
[2019-03-02] MEDS: ALBUTEROL/IPRATROPIUM 3 ML NEB RESP TX SCH ×3 (07:20→19:07)
[2019-03-02] MEDS: LOSARTAN 50 MG TABLET PO SCH ×2 (09:18→21:03)
[2019-03-02] MEDS: MUPIROCIN 2% OINT 22 GM TUBE TOP SCH ×2 (09:18→21:03)
[2019-03-02] MEDS: SOTALOL 80 MG TABLET PO SCH (09:18)
[2019-03-02] MEDS: ASPIRIN EC 81 MG TABLET PO SCH (09:18)
[2019-03-02] MEDS: amLODIPine 5 MG TABLET PO SCH (09:19)
[2019-03-02] MEDS: MEMANTINE 10 MG TABLET PO SCH ×2 (09:19→21:03)
[2019-03-02] MEDS: ISOSORBIDE MONONITRATE 30 MG TABLET PO SCH (09:19)
[2019-03-02] MEDS: CARBIDOPA/LEVODOPA 10-100 MG TABLET PO SCH ×3 (09:20→21:03)
[2019-03-02] MEDS: FUROSEMIDE 40 MG/4 ML VIAL IV SCH (09:20)
[2019-03-02] MEDS: PANTOPRAZOLE 40 MG TABLET PO SCH (09:25)
[2019-03-02] MEDS: POTASSIUM CHLORIDE 20 MEQ TABLET PO SCH (09:25)
[2019-03-02] MEDS: VANCOMYCIN INJ 1,000 MG in SODIUM CHLORIDE 0.9% 250 ML IV SCH (15:51)
[2019-03-02] MEDS: ATORVASTATIN 10 MG TABLET PO SCH (21:03)
[2019-03-03] MEDS: PIPERACILLIN/TAZOBACTAM 3,375 MG in SODIUM CHLORIDE 0.9% 100 ML IV SCH ×3 (03:26→18:46)
[2019-03-03] MEDS: ALBUTEROL/IPRATROPIUM 3 ML NEB RESP TX SCH ×3 (07:43→19:15)
[2019-03-03] MEDS: CARBIDOPA/LEVODOPA 10-100 MG TABLET PO SCH ×3 (08:27→20:32)
[2019-03-03] MEDS: MEMANTINE 10 MG TABLET PO SCH ×2 (08:27→20:32)
[2019-03-03] MEDS: SOTALOL 80 MG TABLET PO SCH (08:28)
[2019-03-03] MEDS: amLODIPine 5 MG TABLET PO SCH (08:28)
[2019-03-03] MEDS: ISOSORBIDE MONONITRATE 30 MG TABLET PO SCH (08:28)
[2019-03-03] MEDS: POTASSIUM CHLORIDE 20 MEQ TABLET PO SCH (08:28)
[2019-03-03] MEDS: PANTOPRAZOLE 40 MG TABLET PO SCH (08:28)
[2019-03-03] MEDS: ASPIRIN EC 81 MG TABLET PO SCH (08:28)
[2019-03-03] MEDS: FUROSEMIDE 40 MG/4 ML VIAL IV SCH (08:29)
[2019-03-03] MEDS: LOSARTAN 50 MG TABLET PO SCH ×2 (08:29→20:32)
[2019-03-03] MEDS: MUPIROCIN 2% OINT 22 GM TUBE TOP SCH ×2 (08:47→20:33)
[2019-03-03 09:40] LABS: Basophils # 0.1 10*3/uL (0.0-0.2); Basophils % 0.4 % (0.0-0.8); Eosinophils # 0.5 10*3/uL (0.0-0.87); Eosinophils % 3.9 % (0.00-10.9); Hematocrit 33.7 VOL% (35.7-47.0); Immature Granulocytes % 0.3 %; Immature Granulocytes Absolute 0.04 #; Lymphocytes # 2.1 10*3/uL (1.4-4.0); Lymphocytes % 17.2 % (21.3-54.2); Mean Corpuscular HGB Conc 32.6 GM/DL (32-36); Mean Corpuscular Volume 95.5 FL (87-102); Mean Platelet Volume 10.4 FL (9.6-12.0); Monocytes % 11.5 % (1.7-12.7); Neutrophils % 66.7 % (38.7-73.9); Platelet Count 194 T/CUMM (130-400); Red Blood Count 3.53 MC/CUMM (3.8-5.5); Red Cell Distribution Width 14.8 % (9.3-17.3)
[2019-03-03 09:55] LABS: Calcium 9.1 MG/DL (8.5-10.1); Osmolality,Calculated 283.1 MOS/KG (273-304)
[2019-03-03] MEDS: VANCOMYCIN INJ 1,000 MG in SODIUM CHLORIDE 0.9% 250 ML IV SCH (15:38)
[2019-03-03] MEDS ORDERED: RANITIDINE 150 MG/10 ML 30 ML BOTTLE PO SCH ×2 (17:00)
[2019-03-03] MEDS: ATORVASTATIN 10 MG TABLET PO SCH (20:32)
[2019-03-03] MEDS: ACETAMINOPHEN 650 MG SUPP RECTAL PRN (22:19)
[2019-03-04] MEDS: PIPERACILLIN/TAZOBACTAM 3,375 MG in SODIUM CHLORIDE 0.9% 100 ML IV SCH ×2 (03:51→10:49)
[2019-03-04] MEDS: ALBUTEROL/IPRATROPIUM 3 ML NEB RESP TX SCH ×2 (07:00→13:19)
[2019-03-04] MEDS: MEMANTINE 10 MG TABLET PO SCH (09:05)
[2019-03-04] MEDS: POTASSIUM CHLORIDE 20 MEQ TABLET PO SCH (09:05)
[2019-03-04] MEDS: SOTALOL 80 MG TABLET PO SCH (09:05)
[2019-03-04] MEDS: CARBIDOPA/LEVODOPA 10-100 MG TABLET PO SCH ×2 (09:05→15:40)
[2019-03-04] MEDS: ASPIRIN EC 81 MG TABLET PO SCH (09:05)
[2019-03-04] MEDS: PANTOPRAZOLE 40 MG TABLET PO SCH (09:06)
[2019-03-04] MEDS: ISOSORBIDE MONONITRATE 30 MG TABLET PO SCH (09:06)
[2019-03-04] MEDS: LOSARTAN 50 MG TABLET PO SCH (09:06)
[2019-03-04] MEDS: amLODIPine 5 MG TABLET PO SCH (09:06)
[2019-03-04] MEDS: FUROSEMIDE 40 MG/4 ML VIAL IV SCH (09:06)
[2019-03-04] MEDS: MUPIROCIN 2% OINT 22 GM TUBE TOP SCH (09:07)
[2019-03-04] MEDS: VANCOMYCIN INJ 1,000 MG in SODIUM CHLORIDE 0.9% 250 ML IV SCH (15:40)
[2019-03-04 15:58] VITALS: BP 118/44
== END 2019-03-04 16:58 | DRG 689 ==
LOC: EDUNIT# → N.ED 19:15 → N.EDINP 21:00 → N.TELEN 21:43 → N.2E 21:43
PROVIDERS: ADMIT Family Medicine; ATTEND Family Medicine

== ENCOUNTER 2019-03-18 13:57 | Inpatient (IN) ==
[2019-03-18 15:06] LABS: Basophils # 0.1 10*3/uL (0.0-0.2); Basophils % 0.4 % (0.0-0.8); Eosinophils # 0.3 10*3/uL (0.0-0.87); Hematocrit 37.8 VOL% (35.7-47.0); Hemoglobin 11.9 GM/DL (12.0-16.0); Immature Granulocytes % 1.2 %; Immature Granulocytes Absolute 0.17 #; Lymphocytes # 2.8 10*3/uL (1.4-4.0); Lymphocytes % 19.9 % (21.3-54.2); Mean Corpuscular HGB Conc 31.5 GM/DL (32-36); Mean Corpuscular Volume 95.9 FL (87-102); Mean Platelet Volume 11.1 FL (9.6-12.0); Monocytes % 5.9 % (1.7-12.7); NRBC # 0.02 10*3/uL; Neutrophils % 70.6 % (38.7-73.9); Platelet Count 365 T/CUMM (130-400); Red Blood Count 3.94 MC/CUMM (3.8-5.5); Red Cell Distribution Width 14.4 % (9.3-17.3)
[2019-03-18 15:29] LABS: Alanine Aminotransferase < 9 U/L (13-56); Albumin 2.8 G/DL (3.4-5.0); Alkaline Phosphatase 74 U/L (45-117); Aspartate Amino Transferase 20 U/L (0-37); Bilirubin,Total < 0.39 MG/DL (0.2-1.0); Blood Urea Nitrogen 27 MG/DL (7-18); Calcium 9.5 MG/DL (8.5-10.1); Estimated Glom Filtration Rate 26 ML/MIN; Glucose 156 MG/DL (74-106); Osmolality,Calculated 288.3 MOS/KG (273-304); Total Protein 7.4 G/DL (6.4-8.3)
[2019-03-18] MEDS ORDERED: PIPERACILLIN/TAZOBACTAM 3,375 MG in SODIUM CHLORIDE 0.9% 100 ML IV STA (15:41)
[2019-03-18] MEDS ORDERED: ACETAMINOPHEN 325 MG TABLET PO PRN (19:01)
[2019-03-18] MEDS ORDERED: ONDANSETRON 4 MG/2 ML VIAL IV PRN (19:01)
[2019-03-18] MEDS: DOCUSATE SODIUM 100 MG CAPSULE PO SCH (21:00)
[2019-03-19] MEDS: ALBUTEROL 2.5 MG/3 ML NEB RESP TX SCH ×4 (01:22→19:09)
[2019-03-19] MEDS: PIPERACILLIN/TAZOBACTAM 3,375 MG in SODIUM CHLORIDE 0.9% 100 ML IV SCH ×3 (02:36→16:53)
[2019-03-19] MEDS ORDERED: ZINC OXIDE 16% PASTE 57 GM TUBE TOP PRN (08:07)
[2019-03-19] MEDS: PANTOPRAZOLE 40 MG TABLET PO SCH (10:59)
[2019-03-19] MEDS: DOCUSATE SODIUM 100 MG CAPSULE PO SCH ×2 (10:59→20:06)
[2019-03-19] MEDS ORDERED: LORazepam 2 MG/1 ML VIAL IV PRN (19:23)
[2019-03-19] MEDS ORDERED: FUROSEMIDE 40 MG/4 ML VIAL IV ONE (19:23)
[2019-03-20] MEDS: ALBUTEROL 2.5 MG/3 ML NEB RESP TX SCH ×4 (00:35→19:39)
[2019-03-20] MEDS: PIPERACILLIN/TAZOBACTAM 3,375 MG in SODIUM CHLORIDE 0.9% 100 ML IV SCH ×3 (01:25→16:23)
[2019-03-20] MEDS ORDERED: NITROGLYCERIN SL 0.4 MG TABLET SL PRN (05:35)
[2019-03-20] MEDS ORDERED: cloNIDine 0.1 MG TABLET PO PRN (05:35)
[2019-03-20] MEDS: METOCLOPRAMIDE 5 MG TABLET PO SCH ×4 (07:26→21:34)
[2019-03-20] MEDS: PANTOPRAZOLE 40 MG TABLET PO SCH (09:24)
[2019-03-20] MEDS: ASPIRIN EC 81 MG TABLET PO SCH (09:24)
[2019-03-20] MEDS: SOTALOL 80 MG TABLET PO SCH (09:25)
[2019-03-20] MEDS: CARBIDOPA/LEVODOPA 25-100 MG TABLET PO SCH ×3 (09:25→21:34)
[2019-03-20] MEDS: ISOSORBIDE MONONITRATE 30 MG TABLET PO SCH (09:26)
[2019-03-20] MEDS: DOCUSATE SODIUM 100 MG CAPSULE PO SCH ×2 (09:26→21:35)
[2019-03-20] MEDS: FUROSEMIDE 40 MG TABLET PO SCH (09:26)
[2019-03-20] MEDS ORDERED: TUBERCULIN SKIN TEST 0.1 ML SYRINGE INTRADERM ONE ×2 (10:09→13:00)
[2019-03-20] MEDS: ATORVASTATIN 10 MG TABLET PO SCH (21:34)
[2019-03-21] MEDS: ALBUTEROL 2.5 MG/3 ML NEB RESP TX SCH ×5 (00:23→20:35)
[2019-03-21] MEDS: PIPERACILLIN/TAZOBACTAM 3,375 MG in SODIUM CHLORIDE 0.9% 100 ML IV SCH ×3 (01:31→17:06)
[2019-03-21] MEDS: ISOSORBIDE MONONITRATE 30 MG TABLET PO SCH (09:43)
[2019-03-21] MEDS: FUROSEMIDE 40 MG TABLET PO SCH (09:44)
[2019-03-21] MEDS: CARBIDOPA/LEVODOPA 25-100 MG TABLET PO SCH ×3 (09:44→21:06)
[2019-03-21] MEDS: SOTALOL 80 MG TABLET PO SCH (09:44)
[2019-03-21] MEDS: METOCLOPRAMIDE 5 MG TABLET PO SCH ×4 (09:44→21:05)
[2019-03-21] MEDS: ASPIRIN EC 81 MG TABLET PO SCH (09:44)
[2019-03-21] MEDS: DOCUSATE SODIUM 100 MG CAPSULE PO SCH ×2 (09:44→21:06)
[2019-03-21] MEDS: PANTOPRAZOLE 40 MG TABLET PO SCH (09:44)
[2019-03-21] MEDS: ALBUTEROL 2.5 MG/3 ML NEB RESP TX PRN (15:54)
[2019-03-21] MEDS: ATORVASTATIN 10 MG TABLET PO SCH (21:05)
[2019-03-22] MEDS: PIPERACILLIN/TAZOBACTAM 3,375 MG in SODIUM CHLORIDE 0.9% 100 ML IV SCH ×3 (01:25→17:17)
[2019-03-22] MEDS: ALBUTEROL 2.5 MG/3 ML NEB RESP TX SCH ×5 (01:50→23:56)
[2019-03-22 05:19] LABS: Basophils % 0.3 % (0.0-0.8); Eosinophils # 0.3 10*3/uL (0.0-0.87); Eosinophils % 2.8 % (0.00-10.9); Hemoglobin 11.4 GM/DL (12.0-16.0); Immature Granulocytes % 0.6 %; Immature Granulocytes Absolute 0.07 #; Lymphocytes # 3.3 10*3/uL (1.4-4.0); Lymphocytes % 27.9 % (21.3-54.2); Mean Corpuscular HGB Conc 32.6 GM/DL (32-36); Mean Corpuscular Volume 94.1 FL (87-102); Mean Platelet Volume 11.3 FL (9.6-12.0); Monocytes % 10.7 % (1.7-12.7); Neutrophils % 57.7 % (38.7-73.9); Platelet Count 260 T/CUMM (130-400); Red Blood Count 3.72 MC/CUMM (3.8-5.5); Red Cell Distribution Width 14.3 % (9.3-17.3); White Blood Count 11.8 T/CUMM (4-12)
[2019-03-22 05:38] LABS: Calcium 9.9 MG/DL (8.5-10.1); Osmolality,Calculated 303.9 MOS/KG (273-304)
[2019-03-22] MEDS: SOTALOL 80 MG TABLET PO SCH (08:29)
[2019-03-22] MEDS: METOCLOPRAMIDE 5 MG TABLET PO SCH ×4 (08:29→21:12)
[2019-03-22] MEDS: DOCUSATE SODIUM 100 MG CAPSULE PO SCH ×2 (08:30→21:12)
[2019-03-22] MEDS: FUROSEMIDE 40 MG TABLET PO SCH (08:30)
[2019-03-22] MEDS: ISOSORBIDE MONONITRATE 30 MG TABLET PO SCH (08:30)
[2019-03-22] MEDS: CARBIDOPA/LEVODOPA 25-100 MG TABLET PO SCH ×3 (08:31→21:12)
[2019-03-22] MEDS: ASPIRIN EC 81 MG TABLET PO SCH (08:31)
[2019-03-22] MEDS: PANTOPRAZOLE 40 MG TABLET PO SCH (08:31)
[2019-03-22] MEDS ORDERED: SODIUM CHLORIDE 0.45% 1,000 ML IV SCH (10:30)
[2019-03-22] MEDS: POTASSIUM CHLORIDE 20 MEQ TABLET PO PRN ×3 (15:05→21:12)
[2019-03-22] MEDS: ATORVASTATIN 10 MG TABLET PO SCH (21:12)
[2019-03-23] MEDS: PIPERACILLIN/TAZOBACTAM 3,375 MG in SODIUM CHLORIDE 0.9% 100 ML IV SCH ×3 (01:56→16:56)
[2019-03-23 05:42] LABS: Calcium 9.4 MG/DL (8.5-10.1); Osmolality,Calculated 310.4 MOS/KG (273-304)
[2019-03-23] MEDS: ALBUTEROL 2.5 MG/3 ML NEB RESP TX SCH ×3 (07:58→19:19)
[2019-03-23] MEDS: PANTOPRAZOLE 40 MG TABLET PO SCH (09:10)
[2019-03-23] MEDS: METOCLOPRAMIDE 5 MG TABLET PO SCH ×4 (09:10→20:36)
[2019-03-23] MEDS: DOCUSATE SODIUM 100 MG CAPSULE PO SCH ×2 (09:11→20:36)
[2019-03-23] MEDS: ASPIRIN EC 81 MG TABLET PO SCH (09:11)
[2019-03-23] MEDS: SOTALOL 80 MG TABLET PO SCH (09:11)
[2019-03-23] MEDS: ISOSORBIDE MONONITRATE 30 MG TABLET PO SCH (09:11)
[2019-03-23] MEDS: FUROSEMIDE 40 MG TABLET PO SCH (09:12)
[2019-03-23] MEDS: CARBIDOPA/LEVODOPA 25-100 MG TABLET PO SCH ×3 (09:12→20:36)
[2019-03-23] MEDS: ALBUTEROL 2.5 MG/3 ML NEB RESP TX PRN (17:21)
[2019-03-23] MEDS: ATORVASTATIN 10 MG TABLET PO SCH (20:36)
[2019-03-24] MEDS: PIPERACILLIN/TAZOBACTAM 3,375 MG in SODIUM CHLORIDE 0.9% 100 ML IV SCH ×2 (00:46→10:03)
[2019-03-24] MEDS: ALBUTEROL 2.5 MG/3 ML NEB RESP TX SCH ×2 (00:47→07:41)
[2019-03-24 08:23] VITALS: BP 151/88
[2019-03-24] MEDS: CARBIDOPA/LEVODOPA 25-100 MG TABLET PO SCH (10:06)
[2019-03-24] MEDS: ASPIRIN EC 81 MG TABLET PO SCH (10:06)
[2019-03-24] MEDS: ISOSORBIDE MONONITRATE 30 MG TABLET PO SCH (10:06)
[2019-03-24] MEDS: SOTALOL 80 MG TABLET PO SCH (10:06)
[2019-03-24] MEDS: PANTOPRAZOLE 40 MG TABLET PO SCH (10:06)
[2019-03-24] MEDS: FUROSEMIDE 40 MG TABLET PO SCH (10:06)
[2019-03-24] MEDS: DOCUSATE SODIUM 100 MG CAPSULE PO SCH (10:07)
[2019-03-24] MEDS: METOCLOPRAMIDE 5 MG TABLET PO SCH ×2 (10:07→11:54)
== END 2019-03-24 12:08 | disposition hospice, inpatient (51) | DRG 206 ==
LOC: EDBD → EDUNIT# → N.ED 13:57 → N.EDINP 13:57 → N.2E 18:58
PROVIDERS: ADMIT Family Medicine; ATTEND Family Medicine